=== PATIENT | female | born 1945 | race Two or more races ===

== ENCOUNTER → 2020-06-23 14:24 | Outpatient (BNVA) | payer MEDICARE, SELFPAY | PROVIDERS: PCP Internal Medicine; Visit Provider Hospitalist | DX: G47.33 Obstructive sleep apnea (adult) (pediatric) (principal); E03.9 Hypothyroidism, unspecified; J45.40 Moderate persistent asthma, uncomplicated; R91.1 Solitary pulmonary nodule; Z99.89 Dependence on other enabling machines and devices | CPT/HCPCS: 99212 ==

== ENCOUNTER 2021-01-04 09:50 | Outpatient (REF) | payer MEDICARE, SELFPAY ==
--- NOTE | ~2021-01-04 | CT_ITS ---
EXAMINATION: CT CHEST WITHOUT CONTRAST CLINICAL INFORMATION: Pulmonary nodule COMPARISON: Previous chest CT January 2020 and chest x-ray December 2019 TECHNIQUE: Multidetector volumetric CT imaging of the chest was done. Axial MIP volume rendering provided. Sagittal and coronal reformatted images were obtained. This CT examination was performed using dose optimization techniques as appropriate, variously including the following: *Automated exposure control *Adjustment of mA and/or kV according to patient size (this includes techniques or standardized protocols for targeted exams where dose is matched to indication/reason for exam; i.e. 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 Largest pulmonary nodule measures 4 mm in the left lower lobe axial image 328 series 5. No new pulmonary nodule is seen. There is minimal scarring or subsegmental atelectasis at the lung bases in the right middle lobe and lingula. MEDIASTINUM: There is mild coronary artery calcification. There are small mediastinal lymph nodes that are stable. The mediastinum is otherwise normal. PLEURA: There is no pleural effusion. No pleural mass or thickening. AXILLA: There are small bilateral axillary lymph nodes. No enlarged lymph nodes or chest wall mass is seen. UPPER ABDOMEN: Unremarkable. OSSEOUS STRUCTURES: There are degenerative changes of the spine. CT/CT chest wo con IMPRESSION: Stable small pulmonary nodules from January 2020. Mild coronary artery calcification.
== END 2021-01-04 09:51 | disposition home or self-care (01) ==
LOC: HO.CT 09:50
PROVIDERS: Visit Provider Hospitalist
DX: R91.1 Solitary pulmonary nodule (principal)
CPT/HCPCS: 71250

== ENCOUNTER → 2021-01-22 10:54 | Outpatient (BNVA) | payer MEDICARE, SELFPAY | PROVIDERS: PCP Internal Medicine; Visit Provider Hospitalist | DX: R91.1 Solitary pulmonary nodule (principal); J45.40 Moderate persistent asthma, uncomplicated; G47.33 Obstructive sleep apnea (adult) (pediatric) | CPT/HCPCS: 99212 ==

== ENCOUNTER 2021-12-18 08:49 | Outpatient (REF) | payer MEDICARE, SELFPAY ==
--- NOTE | ~2021-12-18 | CT_ITS ---
EXAMINATION: CT CHEST WITHOUT CONTRAST CLINICAL INFORMATION: Solitary pulmonary nodule. COMPARISON: None TECHNIQUE: Multidetector volumetric CT imaging of the chest was done. Axial MIP volume rendering provided. Sagittal and coronal reformatted images were obtained. This CT examination was performed using dose optimization techniques as appropriate, variously including the following: *Automated exposure control *Adjustment of mA and/or kV according to patient size (this includes techniques or standardized protocols for targeted exams where dose is matched to indication/reason for exam; i.e. extremities or head) *Use of iterative reconstruction technique DLP: 161 mGy-cm FINDINGS: ANHYDROUS AMMONIA PRODUCTION SUPERVISOR: Well-expanded lungs. LUNGS: The lungs are well expanded and clear of acute pneumonic process. There is a 1 mm punctate calcified granuloma right upper lobe axial image 132/6, 2 mm nodule left lower lobe superior segment 189/6, 2 mm calcified nodule left lower lobe axial image 281/6, patchy ground-glass density right middle lobe 1.0 cm axial image 27/5, 3 mm nodule left lower lobe axial image 330/6. MEDIASTINUM: The thyroid lobes are symmetrical and normal. The central trachea and the bronchi are widely patent. The heart size and the great vessels are normal. There are small shotty lymph nodes in the mediastinum. No pericardial effusion seen. Trace coronary artery calcifications are visualized. PLEURA: There is no pleural effusion. No pleural mass or thickening. AXILLA: There is a 9 mm left axillary lymph node image 17/3. UPPER ABDOMEN: Visualized liver, spleen, pancreas and bilateral adrenal glands unremarkable. OSSEOUS STRUCTURES: No lytic or sclerotic process seen. There is mild spondylosis dorsal spine. CT/CT chest wo con IMPRESSION: Stable bilateral pulmonary nodules compared to 01/04/2021. Patchy ground-glass attenuation right middle lobe is new. Recommend continued yearly followup. Fleischner guidelines were followed.
== END 2021-12-18 08:50 | disposition home or self-care (01) ==
LOC: HO.CT 08:49
PROVIDERS: PCP Internal Medicine; Visit Provider Hospitalist
DX: R91.1 Solitary pulmonary nodule (principal)
CPT/HCPCS: 71250

== ENCOUNTER → 2022-01-03 13:59 | Outpatient (BNVA) | payer MEDICARE, SELFPAY | PROVIDERS: PCP Internal Medicine; Visit Provider Hospitalist | DX: J45.40 Moderate persistent asthma, uncomplicated (principal); G47.33 Obstructive sleep apnea (adult) (pediatric); R91.1 Solitary pulmonary nodule | CPT/HCPCS: 99212 ==

== ENCOUNTER 2022-07-26 08:30 | Outpatient (REF) | payer MEDICARE, SELFPAY ==
--- NOTE | ~2022-07-26 | CT_ITS ---
EXAMINATION: CT CHEST WITHOUT CONTRAST CLINICAL INFORMATION: Follow-up pulmonary nodules. COMPARISON: CT chest 12/18/2021 TECHNIQUE: Multidetector volumetric CT imaging of the chest was done. Axial MIP volume rendering provided. Sagittal and coronal reformatted images were obtained. This CT examination was performed using dose optimization techniques as appropriate, variously including the following: *Automated exposure control *Adjustment of mA and/or kV according to patient size (this includes techniques or standardized protocols for targeted exams where dose is matched to indication/reason for exam; i.e. 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 LUNGS: The lungs are well-expanded and clear of acute pneumonic process. There is a 4 mm solitary nodule left lower lobe adjacent to the major fissure, axial image 287/7; 2 mm nodule right lower lobe adjacent to the major fissure, axial image 358/7; an ill-defined new nodule in the lingula measuring 4 mm on axial image 395/7. A punctate calcified granuloma right upper lobe and a 2 mm calcified nodule left lower lobe are stable. MEDIASTINUM: Heart size and the great vessels are normal caliber. There is no pericardial effusion. Mild coronary artery calcification is seen. There are small shotty precarinal lymph nodes with a short axis measurement of 6 mm. The thyroid lobes are symmetrical and normal. The airway is widely patent. CORONARY ARTERY CALCIFICATION: Trace coronary artery calcification is present. PLEURA: There is no pleural effusion. No pleural mass or thickening. AXILLA: Small shotty lymph nodes are seen in the left axilla. UPPER ABDOMEN: Visualized liver, spleen, pancreas and bilateral adrenal glands are unremarkable. OSSEOUS STRUCTURES: No aggressive lytic or sclerotic process seen. There is mild ventral and dorsal spondylosis. CT/CT chest wo IV con IMPRESSION: 1. Stable bilateral pulmonary nodules. There is a new ill-defined nodule in the lingula measuring 4 mm. 2. No abnormal mediastinal or axillary lymph nodes seen. Fleischner guidelines were followed.
== END 2022-07-26 08:31 | disposition home or self-care (01) ==
LOC: HO.CT 08:30
PROVIDERS: Visit Provider Hospitalist
DX: R91.1 Solitary pulmonary nodule (principal)
CPT/HCPCS: 71250

== ENCOUNTER → 2022-08-30 11:00 | Outpatient (BNVA) | payer MEDICARE, SELFPAY | PROVIDERS: PCP Internal Medicine; Visit Provider Hospitalist | DX: J44.9 Chronic obstructive pulmonary disease, unspecified (principal); R06.02 Shortness of breath | CPT/HCPCS: Q3014 ==

== ENCOUNTER 2023-04-29 11:10 | Outpatient (AMB) | payer MEDICARE, SELFPAY ==
[2023-04-29 11:24] VITALS: PULSE 89; O2SAT 98; BMI 31.1
--- NOTE | 2023-04-29 11:24 | MHC.OFFVIS ---
Intake Vital Signs 04/29/23 11:24 Height 5 ft 2 in Weight 170 lb BMI 31.1 Pulse 89 Pulse Source Pulse Oximeter Pulse Oximetry (%) 98 Oxygen Delivery Method Room Air Intake Visit Reasons: Asthma Philosophy Faculty Member Required: No Allergies hydrochlorothiazide Allergy (Severe, Verified 04/29/23 11:26) High Sensitivity Vasculitis penicillin V Allergy (Severe, Verified 04/29/23 11:26) Hives sulfur Allergy (Severe, Verified 04/29/23 11:26) High Sensitivity Vasculitis Lisinopril Allergy (Severe, Uncoded 04/29/23 11:26) High Sensitivity Vasculitis HPI HPI Comments History of Present Illness Details The patient is a 78-year-old woman with a history of hypothyroidism who apparently was evaluated for cough. She was found to have wheezing on examination per report and she was diagnosed with with asthma. She was started on Ventolin inhaler. She used it once and did complaint of some left-sided discomfort on her chest. Subsequently at her discomfort persisted so she decided to use it again in December discomfort worse. Denied palpitations or fluttering sensations. She denies any radiation down the arm. She was evaluated at the [place] [facility] because of the chest discomfort. There she had an x-ray demonstrating some evidence of bronchitis. Who otherwise no blood work was done. On further questioning she does states that she does have a are chronic cough. Usually nonproductive in nature. Tends to be intermittent not related to eating. Usually waxes and wanes. Denies any shortness of breath. She has never had allergy testing. She does states that she has a sister that has pulmonary fibrosis. She is a half sister which is concern that she could be developing a similar entity. She did have pulmonary function studies which we personally reviewed demonstrating a moderate restrictive ventilatory defect. She is concerned because her sister also has a history of pulmonary fibrosis. We did review her blood work including a positive CATINA with a elevated titer of 320:1. Therefore, additional blood tests warranted. Will also plan to repeat a chest x-ray. If there is no clear explanation for the restrictive lung disease then need to consider performing a CT scan of the chest to assess if there is any interstitial lung process. 02/15/2020 the patient is here for pulmonary follow-up visit. Overall she is doing okay. She has had some dyspnea on exertion. Rlbd-vd-tkltkwst severity. Worse when she is going up a flight of stairs. She was concerned about pulmonary fibrosis specially with restrictive lung disease. Therefore we had ago for CT scan of the chest. No evidence of any interstitial lung disease noted. She does have small pulmonary nodules measuring 2-4 mm in size. She should have another repeat CT scan in a year's time. It is reassuring that she does not have any evidence of any interstitial lung disease she is very happy about that. In the meantime will try some respiratory therapy since she is having some wheezing on examination. 06/23/2020 the patient has a telephone visit. Overall the patient has been complaining of persistent daytime drowsiness. She also develops headaches in the morning. She did undergo sleep study demonstrating mild sleep apnea. The patient also has evidence of hypoxia. Based on her cardiovascular risk and her ongoing daytime drowsiness symptoms the patient will benefit from starting CPAP therapy. Again a pulmonary nodules were discussed. They are small, but, will need a follow-up CT scan a year from the last 1. Her respiratory symptoms are overall better. 01/22/2021 the patient is here for pulmonary follow-up visit. Since we last spoke the patient did try CPAP. However, she could not get used to the mask or to therapy. Therefore she returned it. We did again review her sleep study and it appears that she does well when she sleeps on her side. Therefore she will try positional therapy for now. She will closely monitor her [place] score. She still complaining of dyspnea on exertion. I did send a prescription for Advair to the pharmacy to treat bronchospasms and hopefully improve her respiratory status. But, the patient had a high deductible and therefore she did not fill it. The patient was provided with a coupon for Anoro and she is going to try the Anoro and will fill it if it helps. We also did review her CT scan of the chest demonstrating stable pulmonary nodules bilaterally. The patient will need another CT scan in a year's time. In the meantime she does complaint of back pain. 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 She will follow-up with her primary care doctor regarding that. She is also concerned about the mild coronary artery calcifications suggesting some degree of cholesterol buildup. Nothing to do at this time although the patient should consider dietary indiscretions and lifestyle changes. Again, she should follow up with her primary care doctor regarding any cardiovascular risk factors. 01/03/2022 the patient is here for a pulmonary follow-up visit. Overall the patient has been doing relatively well. Has not been complaining of any asthma symptoms. She has not had to use her rescue inhaler. He has not used the Anoro, only a few times. However, she does have a postnasal drip. Usually is thin but she needs to carry him pressure because of some mention drippage. She denies any history of glaucoma. Therefore will start on ipratropium nasal spray. She continues to sleep well. She is avoiding sleeping supine. Has not had any issues with significant daytime drowsiness. the patient did undergo a repeat CT scan of the chest to monitor the pulmonary nodules. It appears that she has a new 5 mm ground-glass nodular density in the right hemithorax. We have reviewed the CT scan and 8 months with a follow-up at that time. 08/30/2022 the patient is here for a pulmonary Telehealth visit. The patient started developing a cough and chest congestion recently. Therefore she opted in a telehealth visit. She did have a cough which was productive in nature. Hrgo-ix-igpyqtmi severity. It appears that slowly improving. She did test negative for COVID-19. Denies any fevers or chills. Therefore, will hold off on any antibiotics at this time. She does have her inhalers which she is using. If the patient is no better she can come is call and I can send her some prednisone. The patient did have a recent CT scan of the chest in July 2022. We personally reviewed together. It appears that she has a new 4 mm ill-defined pulmonary nodule in the lingula area. She is concerned because is a new finding. I tried to reassure that is very small nodule. The patient will need close follow-up based on the appearance of the nodule. She does continue to use respiratory therapy as prescribed. The patient will call if she is no better and have a CXR. 04/29/2023 the patient is here for a pulmonary follow-up visit. She still complaining of some chest tightness and fatigue. Unfortunately back in January she did have a CT of the coronary arteries demonstrating couple blockages on the distal LAD and also proximal right coronary artery. It was stated to be about 70% obstruction. She has been very concerned about the findings. Although, she has not yet to have a diagnostic catheterization. She may need a percutaneous intervention. In the meantime the patient has been taking a baby aspirin. Explained to her that will go ahead and try to facilitate her catheterization to further address the ongoing symptoms and potential cardiac etiologies. If she continues to be symptomatic after her cardiac interventions then we will further address any ongoing symptoms done. The patient also had a CT scan of the chest back in July 2022 demonstrating pulmonary nodules that do need follow-up. She had a new 4 mm pulmonary nodule. The CT scan of the coronary arteries is not able to visualize the full lung tissue. Therefore will have her return sometime in early next year with a repeat CT scan to further follow up the pulmonary nodules. The patient will continue with current respiratory therapy. Any new issues arise the patient will call for an earlier assessment. [facility] Medical History (Updated 04/29/23 @ 22:26 by Evelio Martinez MD) CAD (coronary artery disease) MARY (obstructive sleep apnea) Pulmonary nodule Asthma MARY on CPAP Social History (Updated 01/22/21 @ 11:05 by Sonam Arroyo Gutierrez) Patient Tobacco Use Status: Never used Tobacco Review of Systems Const Denies daytime sleepiness, Reports fatigue, Denies night sweats, Reports snoring and Denies stops breathing during sleep ENT Denies change in voice, Denies lip swelling, Denies mouth pain, Reports nasal congestion, Reports nasal discharge and Denies neck pain Card Reports chest pain and Reports dyspnea on exertion Resp Reports cough, Reports dyspnea on exertion, Reports snoring and Reports wheezing GI Denies abdominal pain Musc Denies no additional complaints, Reports back pain and Denies neck pain Neuro Denies Neuro-related abnormal movements Psych Denies no additional complaints Endo Reports fatigue Antonio/Lymph Denies easy bleeding and Denies lymphadenopathy Aller/Immun Denies lip swelling and Reports wheezing Physical Exam Vital Signs: Last Vital Signs Pulse 89 04/29/23 11:24 Pulse Ox 98 04/29/23 11:24 Oxygen Delivery Method Room Air 04/29/23 11:24 BMI result Body Mass Index 31.1 Const General: alert Neck Neck: Yes normal visual inspection, Yes full ROM and Yes no lymphadenopathy Chest Chest palpation & inspection: normal inspection of the chest Resp Auscultation: diminished lung sounds Cardio Rate: regular rate Rhythm: regular rhythm Heart sounds: S1 normal heart sound present and S2 normal heart sound present GI Palpation (GI): Soft to palpation and nontender Auscultation: normal bowel sounds Skin General skin exam: rashes and/or lesions noted Assessment & Plan Assessment & Plan (1) Pulmonary nodule: Code(s): R91.1 - Solitary pulmonary nodule (2) Asthma: Code(s): J45.909 - Unspecified asthma, uncomplicated Qualifiers: Asthma severity: moderate Asthma persistence: persistent Asthma complication type: uncomplicated Qualified Code(s): J45.40 - Moderate persistent asthma, uncomplicated (3) MARY (obstructive sleep apnea): Comment: Did not tolerate PAP therapy Code(s): G47.33 - Obstructive sleep apnea (adult) (pediatric) (4) CAD (coronary artery disease): Comment: with abnromal CT coronary with 70% distal LAD and 70% proximal RCA Code(s): I25.10 - Atherosclerotic heart disease of [place] coronary artery without angina pectoris Plan Needs urgent diagnostic cardiac cath based on her ongoing symptoms and abnormal scan. YULI as needed positional therapy for MARY, should not sleep supine Repeat CT chest 3-4 months Ipratropium nasal spray F/U 4 [facility] Coding Level of Care Code Est Pt Level 4 (14596) Diagnoses Pulmonary nodule R91.1 Moderate persistent asthma without complication J45.40 Asthma severity: moderate Asthma persistence: persistent Asthma complication type: uncomplicated MARY (obstructive sleep apnea) G47.33 CAD (coronary artery disease) I25.10 Time Spent (min) 20
== END 2023-04-29 12:07 | disposition home or self-care (01) ==
PROVIDERS: PCP Internal Medicine; Visit Provider Hospitalist
DX: R91.1 Solitary pulmonary nodule (principal); J45.40 Moderate persistent asthma, uncomplicated; G47.33 Obstructive sleep apnea (adult) (pediatric); I25.10 Atherosclerotic heart disease of native coronary artery without angina pectoris
CPT/HCPCS: 99214

== ENCOUNTER → 2023-04-29 11:10 | Outpatient (BNVA) | payer MEDICARE, SELFPAY | PROVIDERS: PCP Internal Medicine; Visit Provider Hospitalist | DX: J45.40 Moderate persistent asthma, uncomplicated (principal); R91.1 Solitary pulmonary nodule; G47.33 Obstructive sleep apnea (adult) (pediatric); I25.10 Atherosclerotic heart disease of native coronary artery without angina pectoris | CPT/HCPCS: 99212 ==

== ENCOUNTER 2023-06-18 10:19 | Outpatient (REF) | payer MEDICARE, SELFPAY ==
--- NOTE | ~2023-06-18 | CT_ITS ---
EXAMINATION: CT CHEST WITHOUT CONTRAST CLINICAL INFORMATION: Solitary pulmonary nodule COMPARISON: Previous CTs, most recent, 07/26/2022 TECHNIQUE: Multidetector volumetric CT imaging of the chest was done. Axial MIP volume rendering provided. Sagittal and coronal reformatted images were obtained. This CT examination was performed using dose optimization techniques as appropriate, variously including the following: *Automated exposure control *Adjustment of mA and/or kV according to patient size (this includes techniques or standardized protocols for targeted exams where dose is matched to indication/reason for exam; i.e. extremities or head) *Use of iterative reconstruction technique DLP: 152 mGy-cm FINDINGS: ANNEALER: Unremarkable. LUNGS: Trachea and bronchi are patent. Mild centrilobular emphysema. Scattered atelectasis. Unchanged tiny upper and right left lower lobe granulomas. NODULES: RLL: Stable 2 mm, 6:257. No change 6 mm subpleural, 6:350. Lingula: 4 mm, 6:284 without change. LLL: Stable 4 mm adjacent to the major fissure, 6:100. No change 5 mm, 6:321. Scattered micronodules. MEDIASTINUM: No thyroid pathology. Nonspecific lymph nodes without pathologic lymphadenopathy. Nonenlarged heart. No pericardial effusion. Nonaneurysmal aorta with atherosclerotic calcifications. Nonenlarged pulmonary arteries. CORONARY ARTERY CALCIFICATION: Moderate PLEURA: No effusions, masses, thickening or pneumothoraces. AXILLA: Unchanged nonspecific lymph nodes. No pathologic lymphadenopathy. UPPER ABDOMEN: No upper abdominal pathology. OSSEOUS STRUCTURES: No suspicious osseous lesions. CT/CT chest wo IV con IMPRESSION: Stable lung nodules, largest measuring 5 mm. Per Fleischner guidelines, no routine follow-up.
== END 2023-06-18 10:20 | disposition home or self-care (01) ==
LOC: HO.CT 10:19
PROVIDERS: PCP Internal Medicine; Visit Provider Hospitalist
DX: R91.1 Solitary pulmonary nodule (principal)
CPT/HCPCS: 71250

== ENCOUNTER 2023-10-02 14:19 | Outpatient (AMB) | payer MEDICARE, SELFPAY ==
[2023-10-02 14:20] VITALS: BP 148/78; PULSE 86; O2SAT 97; BMI 32.9
--- NOTE | 2023-10-02 14:20 | A.OFFVIS_ITS ---
Intake Vital Signs 10/02/23 14:20 Height 5 ft 2 in Weight 180 lb BMI 32.9 BP 148/78 H Blood Pressure Location Lt brachial Position Sitting Pulse 86 Pulse Source Doppler Pulse Oximetry (%) 97 Oxygen Delivery Method Room Air Intake Visit Reasons: Asthma Intake Note: Patient is here for a follow up on asthma, patient c/o SOB, fatigue, had recent blood work Allergies hydrochlorothiazide Allergy (Severe, Verified 10/02/23 14:25) High Sensitivity Vasculitis penicillin V Allergy (Severe, Verified 10/02/23 14:25) Hives sulfur Allergy (Severe, Verified 10/02/23 14:25) High Sensitivity Vasculitis Lisinopril Allergy (Severe, Uncoded 04/29/23 11:26) High Sensitivity Vasculitis HPI HPI Comments History of Present Illness Details The patient is a 78-year-old woman with a history of hypothyroidism who apparently was evaluated for cough. She was found to have wheezing on examination per report and she was diagnosed with with asthma. She was started on Ventolin inhaler. She used it once and did complaint of some left-sided discomfort on her chest. Subsequently at her discomfort persisted so she decided to use it again in December discomfort worse. Denied palpitations or fluttering sensations. She denies any radiation down the arm. She was evaluated at the [facility] because of the chest discomfort. There she had an x-ray demonstrating some evidence of bronchitis. Who otherwise no blood work was done. On further questioning she does states that she does have a are chronic cough. Usually nonproductive in nature. Tends to be intermittent not related to eating. Usually waxes and wanes. Denies any shortness of breath. She has never had allergy testing. She does states that she has a sister that has pulmonary fibrosis. She is a half sister which is concern that she could be developing a similar entity. She did have pulmonary function studies which we personally reviewed demonstrating a moderate restrictive ventilatory defect. She is concerned because her sister also has a history of pulmonary fibrosis. We did review her blood work including a positive CATINA with a elevated titer of 320:1. Therefore, additional blood tests warranted. Will also plan to repeat a chest x-ray. If there is no clear explanation for the restrictive lung disease then need to consider performing a CT scan of the chest to assess if there is any interstitial lung process. 02/15/2020 the patient is here for pulmonary follow-up visit. Overall she is doing okay. She has had some dyspnea on exertion. [id number] severity. Worse when she is going up a flight of stairs. She was concerned about pulmonary fibrosis specially with restrictive lung disease. Therefore we had ago for CT scan of the chest. No evidence of any interstitial lung disease noted. She does have small pulmonary nodules measuring 2-4 mm in size. She should have another repeat CT scan in a year's time. It is reassuring that she does not have any evidence of any interstitial lung disease she is very happy about that. In the meantime will try some respiratory therapy since she is having some wheezing on examination. 06/23/2020 the patient has a telephone visit. Overall the patient has been complaining of persistent daytime drowsiness. She also develops headaches in the morning. She did undergo sleep study demonstrating mild sleep apnea. The patient also has evidence of hypoxia. Based on her cardiovascular risk and her ongoing daytime drowsiness symptoms the patient will benefit from starting CPAP therapy. Again a pulmonary nodules were discussed. They are small, but, will need a follow-up CT scan a year from the last 1. Her respiratory symptoms are overall better. 01/22/2021 the patient is here for pulmonary follow-up visit. Since we last spoke the patient did try CPAP. However, she could not get used to the mask or to therapy. Therefore she returned it. We did again review her sleep study and it appears that she does well when she sleeps on her side. Therefore she will try positional therapy for now. She will closely monitor her [place] score. She still complaining of dyspnea on exertion. I did send a prescription for Advair to the pharmacy to treat bronchospasms and hopefully improve her respiratory status. But, the patient had a high deductible and therefore she did not fill it. The patient was provided with a coupon for Anoro and she is going to try the Anoro and will fill it if it helps. We also did review her CT scan of the chest demonstrating stable pulmonary nodules bilaterally. The patient will need another CT scan in a year's time. In the meantime she does complaint of back pain. 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 She will follow-up with her primary care doctor regarding that. She is also concerned about the mild coronary artery calcifications suggesting some degree of cholesterol buildup. Nothing to do at this time although the patient should consider dietary indiscretions and lifestyle changes. Again, she should follow up with her primary care doctor regarding any cardiovascular risk factors. 01/03/2022 the patient is here for a pulmonary follow-up visit. Overall the patient has been doing relatively well. Has not been complaining of any asthma symptoms. She has not had to use her rescue inhaler. He has not used the Anoro, only a few times. However, she does have a postnasal drip. Usually is thin but she needs to carry him pressure because of some mention drippage. She denies any history of glaucoma. Therefore will start on ipratropium nasal spray. She continues to sleep well. She is avoiding sleeping supine. Has not had any issues with significant daytime drowsiness. the patient did undergo a repeat CT scan of the chest to monitor the pulmonary nodules. It appears that she has a new 5 mm ground-glass nodular density in the right hemithorax. We have reviewed the CT scan and 8 months with a follow-up at that time. 08/30/2022 the patient is here for a pulmonary Telehealth visit. The patient started developing a cough and chest congestion recently. Therefore she opted in a telehealth visit. She did have a cough which was productive in nature. Rrmp-vn-oqvgbpis severity. It appears that slowly improving. She did test negative for COVID-19. Denies any fevers or chills. Therefore, will hold off on any antibiotics at this time. She does have her inhalers which she is using. If the patient is no better she can come is call and I can send her some prednisone. The patient did have a recent CT scan of the chest in July 2022. We personally reviewed together. It appears that she has a new 4 mm ill- defined pulmonary nodule in the lingula area. She is concerned because is a new finding. I tried to reassure that is very small nodule. The patient will need close follow-up based on the appearance of the nodule. She does continue to use respiratory therapy as prescribed. The patient will call if she is no better and have a CXR. 04/29/2023 the patient is here for a pulmonary follow-up visit. She still complaining of some chest tightness and fatigue. Unfortunately back in January she did have a CT of the coronary arteries demonstrating couple blockages on the distal LAD and also proximal right coronary artery. It was stated to be about 70% obstruction. She has been very concerned about the findings. Although, she has not yet to have a diagnostic catheterization. She may need a percutaneous intervention. In the meantime the patient has been taking a baby aspirin. Explained to her that will go ahead and try to facilitate her catheterization to further address the ongoing symptoms and potential cardiac etiologies. If she continues to be symptomatic after her cardiac interventions then we will further address any ongoing symptoms done. The patient also had a CT scan of the chest back in July 2022 demonstrating pulmonary nodules that do need follow-up. She had a new 4 mm pulmonary nodule. The CT scan of the coronary arteries is not able to visualize the full lung tissue. Therefore will have her return sometime in early next year with a repeat CT scan to further follow up the pulmonary nodules. The patient will continue with current respiratory therapy. Any new issues arise the patient will call for an earlier assessment. 10/02/2023 the patient is here for a pulmonary follow-up visit. The patient still complaining of dyspnea on exertion chest tightness. Mainly with activity. She has been upset with Cardiology because she has not had her cardiac catheterization as of yet. She had the abnormal CT coronary scan and was supposed to follow-up with cardiology but there has been some delay in her care. She is concerned because she is still feeling shortness of breath with activity and chest tightness. Therefore I will make a referral here to [facility]. In the meantime, the patient did have a CT scan of the chest back in May 2023 demonstrating stable pulmonary nodules. There were between 3-5 mm in size. Will follow-up in a year's time which would be closer to the fall and at that point be able to follow-up with a CT scan 1 more time. If the nodules are stable I explained to the patient that these nodules are likely benign and do not need any additional follow-up. The patient also has a rescue inhaler that she has not required. Will follow-up in the fall after his CT scan of the chest. [facility] Medical History (Updated 10/02/23 @ 14:35 by Evelio Martinez MD) CAD (coronary artery disease) MARY (obstructive sleep apnea) Pulmonary nodule Asthma MARY on CPAP Social History Patient Tobacco Use Status: Never used Tobacco Review of Systems Const Denies daytime sleepiness, Reports fatigue, Denies night sweats, Reports snoring and Denies stops breathing during sleep ENT Denies change in voice, Denies lip swelling, Denies mouth pain, Reports nasal congestion, Reports nasal discharge and Denies neck pain Card Reports chest pain and Reports dyspnea on exertion Resp Reports cough, Reports dyspnea on exertion, Reports snoring and Denies wheezing GI Denies abdominal pain Musc Denies no additional complaints, Reports back pain and Denies neck pain Neuro Denies Neuro-related abnormal movements Psych Denies no additional complaints Endo Reports fatigue Antonio/Lymph Denies easy bleeding and Denies lymphadenopathy Aller/Immun Denies lip swelling and Denies wheezing Physical Exam Vital Signs: Last Vital Signs Pulse 86 10/02/23 14:20 BP 148/78 H 10/02/23 14:20 Pulse Ox 97 10/02/23 14:20 Oxygen Delivery Method Room Air 10/02/23 14:20 BMI result Body Mass Index 32.9 Const General: alert Neck Neck: Yes normal visual inspection, Yes full ROM and Yes no lymphadenopathy Chest Chest palpation & inspection: normal inspection of the chest Resp Auscultation: diminished lung sounds Cardio Rate: regular rate Rhythm: regular rhythm Heart sounds: S1 normal heart sound present and S2 normal heart sound present GI Palpation (GI): Soft to palpation and nontender Auscultation: normal bowel sounds Skin General skin exam: rashes and/or lesions noted Assessment & Plan Assessment & Plan (1) Pulmonary nodule: Code(s): R91.1 - Solitary pulmonary nodule (2) Asthma: Code(s): J45.909 - Unspecified asthma, uncomplicated Qualifiers: Asthma complication type: uncomplicated Asthma persistence: persistent Asthma severity: moderate Qualified Code(s): J45.40 - Moderate persistent asthma, uncomplicated (3) MARY (obstructive sleep apnea): Comment: Did not tolerate PAP therapy Code(s): G47.33 - Obstructive sleep apnea (adult) (pediatric) (4) CAD (coronary artery disease): Comment: with abnromal CT coronary with 70% distal LAD and 70% proximal RCA Code(s): I25.10 - Atherosclerotic heart disease of [place] coronary artery without angina pectoris Qualifiers: Associated angina: with stable angina Coronary Disease-Associated Artery/Lesion type: unspecified vessel or lesion type [place] vs. transplanted heart: unspecified whether [place] or transplanted heart Qualified Code(s): I25.118 - Atherosclerotic heart disease of [place] coronary artery with other forms of angina pectoris Plan referral to cardiology at [facility] as needed positional therapy for MARY, should not sleep supine Repeat CT chest 05/2024 Ipratropium nasal spray F/U 05/2024 Orders: Orders CT chest wo IV con 05/25/24 R91.1 - Solitary pulmonary nodule Referrals Cardiology Referral I25.10 - Atherosclerotic heart disease of [place] coronary artery without angina pectoris Coding Level of Care Code Est Pt Level 4 (96012) Diagnoses Pulmonary nodule R91.1 Moderate persistent asthma without complication J45.40 Asthma complication type: uncomplicated Asthma persistence: persistent Asthma severity: moderate MARY (obstructive sleep apnea) G47.33 Coronary artery disease with stable angina pectoris, unspecified vessel or lesion type, unspecified whether [place] or transplanted heart I25.118 Associated angina: with stable angina Coronary Disease-Associated Artery/Lesion type: unspecified vessel or l esion type [place] vs. transplanted heart: unspecified whether [place] or transplanted heart Time Spent (min) 17
== END 2023-10-02 14:51 | disposition home or self-care (01) ==
PROVIDERS: PCP Internal Medicine; Visit Provider Hospitalist
DX: R91.1 Solitary pulmonary nodule (principal); J45.40 Moderate persistent asthma, uncomplicated; G47.33 Obstructive sleep apnea (adult) (pediatric); I25.118 Atherosclerotic heart disease of native coronary artery with other forms of angina pectoris
CPT/HCPCS: 99214

== ENCOUNTER → 2023-10-02 14:19 | Outpatient (BNVA) | payer MEDICARE, SELFPAY | PROVIDERS: PCP Internal Medicine; Visit Provider Hospitalist | DX: R91.1 Solitary pulmonary nodule (principal); J45.40 Moderate persistent asthma, uncomplicated; G47.33 Obstructive sleep apnea (adult) (pediatric); I25.118 Atherosclerotic heart disease of native coronary artery with other forms of angina pectoris | CPT/HCPCS: 99212 ==

== ENCOUNTER 2023-10-13 14:43 | Outpatient (REF) | payer MEDICARE, SELFPAY ==
[2023-10-13 16:20] LABS: MANUAL DIFF FLAG NO
[2023-10-13 17:22] LABS: Basophils Absolute Auto 0.1 X10*3/uL (0.0-0.2); Basophils Percent Auto 0.8 % (0-2); Eosinophils Absolute Auto 0.2 X10*3/uL (0.0-0.4); Hematocrit 40.7 % (37.0-47.0); Hemoglobin 13.6 g/dl (12.0-16.0); Imm Gran Abs Auto 0.04 X10*3/uL (0.00-0.03); Imm Gran Pct Auto 0.4 % (0.0-0.4); Lymphocytes Absolute Auto 2.7 X10*3/uL (1.2-4.9); Lymphocytes Percent Auto 28.8 % (20-40); Mean Corpuscular HGB Conc 33.4 g/dl (31.0-35.0); Mean Corpuscular Hemoglobin 28.2 pg (27.0-33.0); Mean Corpuscular Volume 84.4 fL (80.0-98.0); Mean Platelet Volume 11.2 fL (9.4-12.3); Monocytes Absolute Auto 0.7 X10*3/uL (0.1-1.2); Monocytes Percent Auto 6.9 % (2-11); Neutrophils Absolute Auto 5.8 x10*3/uL (2.0-8.3); Neutrophils Percent Auto 61.1 % (45-73); Platelet Count 296 X10*3/uL (160-400); Red Blood Count 4.82 X10*6/uL (4.20-5.50); Red Cell Distribution Width 13.4 % (11.0-16.0); White Blood Count 9.4 X10*3/uL (4.8-10.8)
[2023-10-13 17:29] LABS: Prothrombin Time 11.6 SEC (11.1-13.3)
[2023-10-13 17:39] LABS: Anion Gap 14 (12-20); Blood Urea Nitrogen 11 mg/dL (9-16); Calcium 9.4 mg/dL (8.4-10.2); Carbon Dioxide 24 mmol/L (22-29); Chloride 102 mmol/L (96-108); Estimated Glomerular Filt Rate > 60; Glucose Random 102 mg/dL (60-115); Potassium 3.4 mmol/L (3.3-5.1); Sodium 137 mmol/L (135-145)
== END 2023-10-13 14:44 | disposition home or self-care (01) ==
LOC: HO.LAB 14:43
PROVIDERS: Absent Provider Nurse Practitioner Family; PCP Internal Medicine; Visit Provider Internal Medicine Cardiovascular Disease
DX: I25.118 Atherosclerotic heart disease of native coronary artery with other forms of angina pectoris (principal); I10 Essential (primary) hypertension; J44.9 Chronic obstructive pulmonary disease, unspecified; Z79.899 Other long term (current) drug therapy
CPT/HCPCS: 36415; 80048; 85025; 85610; 93005; 99202

== ENCOUNTER 2023-10-13 14:43 | Outpatient (AMB) | payer MEDICARE, SELFPAY ==
[2023-10-13 15:04] VITALS: BP 150/80; PULSE 80; BMI 32.4
--- NOTE | 2023-10-13 15:04 | MHC.OFFVIS ---
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 Required: No Accompanied by: Self / Same As Patient Allergies hydrochlorothiazide Allergy (Severe, Verified 10/02/23 14:25) High Sensitivity Vasculitis penicillin V Allergy (Severe, Verified 10/02/23 14:25) Hives sulfur Allergy (Severe, Verified 10/02/23 14:25) High Sensitivity Vasculitis Lisinopril Allergy (Severe, Uncoded 04/29/23 11:26) High Sensitivity Vasculitis Medication List - Last Reconciled 10/13/23 by Yeyo Galindo MD albuterol sulfate 90 mcg/actuation 2 inhalations inhalation Q6H PRN 30 days aspirin (Adult Aspirin Regimen) 81 mg PO DAILY doxycycline monohydrate 50 mg PO DAILY duloxetine 30 mg PO DAILY ipratropium bromide 2 sprays intranasal TID PRN levothyroxine 137 mcg PO DAILY levothyroxine 137 mcg PO DAILY meclizine 12.5 mg PO TID PRN metoprolol tartrate 25 mg PO DAILY milk thistle seed extract 200 mg PO BID HPI HPI Comments History of Present Illness Details 78-year-old female who has a Jehovah Witness, has asthma, COPD, pulmonary nodules and hypertension who is presenting for abnormal coronary CTA. She follows up with Dr. Martinez for pulmonology. She has been experiencing dyspnea on exertion and chest pains off and on for long time. She has noticed that her dyspnea has worsening as well as she is getting some left-sided chest pains more frequently. She followed with Dr. Simmons but since his skilled nursing she has not seen any tomb maker helper at [facility]. She had a CT scan performed in January 2023 this showed 25% left main stenosis, 25% ostial LAD, 40% mid LAD and 70% mid to distal LAD stenosis. RCA had 50-70% stenosis at the ostium. CTA FFR was performed which was abnormal in the right coronary artery as well as distal LAD. She had an echocardiogram in 2021 which showed normal biventricular function with EF of 60 65% and no significant valvular pathology. Small pericardial effusion was noted. It appears she has not been able to get follow-up at [facility] and was referred to us for potential diagnostic angiography. The patient has been experiencing shortness of breath and gets out of breath very easily. She is saying that after minimal activity she has to rest. She also has been getting some left-sided chest pains. She has asthma and COPD and is on treatment for that. Her blood pressure is elevated. She is only on metoprolol which is a weak antihypertensive medication. Labs and imaging reviewed. [facility] Medical History (Updated 10/13/23 @ 15:44 by Yeyo Galindo MD) CAD (coronary artery disease) MARY (obstructive sleep apnea) Pulmonary nodule Asthma MARY on CPAP Social History Patient Tobacco Use Status: Never used Tobacco Review of Systems Const Denies chills, Denies fatigue, Denies fever(s), Denies frequent falls, Denies weakness, Denies weight gain and Denies weight loss ENT Denies dizziness Card Denies chest pain, Denies leg edema, Denies lightheadedness, Denies palpitations, Denies dyspnea and Denies dyspnea on exertion Resp Denies cough, Denies dyspnea and Denies dyspnea on exertion GI Denies hematochezia Musc Denies abnormal gait, Denies muscle weakness, Denies numbness, Denies radiating pain into limb and Denies tingling Neuro Denies abnormal gait, Denies dizziness, Denies frequent falls, Denies numbness, Denies tingling and Denies weakness Endo Denies fatigue and Denies palpitations Physical Exam Vital Signs: Last Vital Signs Pulse 80 10/13/23 15:04 BP 150/80 H 10/13/23 15:04 BMI result Body Mass Index 32.4 GENERAL APPEARANCE: in no acute distress, pleasant. NECK: no carotid bruit, no jugular venous distention. SKIN: no suspicious lesions, warm and dry. HEART: no murmurs, regular rate and rhythm. LUNGS: clear to auscultation bilaterally. ABDOMEN: soft, nontender. EXTREMITIES: no edema. PERIPHERAL PULSES: equal. NEUROLOGIC: No gross deficits, AAO X 3 Office Procedures EKG Details: Sinus rhythm 80 beats per minute, right bundle-branch block, left anterior fascicular block, left ventricular hypertrophy, QTC 498 milliseconds. [id number], Complete Assessment & Plan Assessment & Plan (1) Essential hypertension: Code(s): I10 - Essential (primary) hypertension (2) CAD (coronary artery disease): Comment: with abnromal CT coronary with 70% distal LAD and 70% proximal RCA Code(s): I25.10 - Atherosclerotic heart disease of [place] coronary artery without angina pectoris Qualifiers: Coronary Disease-Associated Artery/Lesion type: unspecified vessel or lesion type [place] vs. transplanted heart: unspecified whether [place] or transplanted heart Associated angina: with stable angina Qualified Code(s): I25.118 - Atherosclerotic heart disease of [place] coronary artery with other forms of angina pectoris Plan [age] year female who is here for 1st office visit. She has a bifascicular block on EKG with right bundle-branch block and left anterior fascicular block. No recent echocardiography in our system and last echo was in [facility] system from 2021 which showed normal biventricular function. She had coronary CTA in January 2023 which was abnormal with abnormal CT FFR in right coronary artery as well as distal LAD. She has dyspnea on exertion ongoing despite treatment by pulmonology. Her blood pressure is elevated. I am adding amlodipine 5 mg once a day to her regimen to improve blood pressure control. I think she needs a diagnostic angiogram to rule out obstructive coronary disease as potential cause for her symptoms. She does have abnormal CT FFR in the right coronary artery as well as the distal LAD. She has a Quaker and will not agree to any blood transfusions. She is currently taking baby aspirin which should be continued. I am also adding atorvastatin 40 mg once a day to her regimen given the fact that her LDL cholesterol is more than 110 and target is less than 70. Thank you for allowing me to participate in the care of your patient. Please feel free to contact me if you have any questions. Medications: New amlodipine 5 mg PO DAILY 60 tabs 3RF I10 - Essential (primary) hypertension atorvastatin 40 mg PO BEDTIME 60 tabs 3RF I25.118 - Atherosclerotic heart disease of [place] coronary artery with other forms of angina pectoris Coding Level of Care Code New Pt Level 5 (45427) Diagnoses Essential hypertension I10 Coronary artery disease with stable angina pectoris, unspecified vessel or lesion type, unspecified whether [place] or transplanted heart I25.118 Coronary Disease-Associated Artery/Lesion type: unspecified vessel or lesion type [place] vs. transplanted heart: unspecified whether [place] or transplanted heart Associated angina: with stable angina CPT Codes EKG - CPT: 67650-[id number], Complete ([id number])
== END 2023-10-13 15:48 | disposition home or self-care (01) ==
PROVIDERS: PCP Internal Medicine; Visit Provider Internal Medicine Cardiovascular Disease
DX: I25.118 Atherosclerotic heart disease of native coronary artery with other forms of angina pectoris (principal); I10 Essential (primary) hypertension; I45.2 Bifascicular block; R94.31 Abnormal electrocardiogram [ECG] [EKG]
CPT/HCPCS: 93010; 99205

== ENCOUNTER → 2023-11-04 23:59 | Outpatient (BNV) | payer MEDICARE, SELFPAY | PROVIDERS: PCP Internal Medicine; Visit Provider Internal Medicine Cardiovascular Disease | DX: I20.89 Other forms of angina pectoris (principal) | CPT/HCPCS: 92928; 92978; 93458; 99152 ==

== ENCOUNTER 2023-11-18 13:06 | Outpatient (AMB) | payer MEDICARE, SELFPAY ==
[2023-11-18 13:10] VITALS: BP 140/64; PULSE 96; BMI 31.9
--- NOTE | 2023-11-18 13:10 | MHC.OFFVIS ---
Intake Vital Signs 11/18/23 13:10 Height 5 ft 2 in Weight 174 lb 2.643 oz BMI 31.9 BP 140/64 H Blood Pressure Location Rt brachial Position Sitting Pulse 96 Pulse Source Pulse Oximeter Intake Visit Reasons: 2 wk s/p cath Allergies hydrochlorothiazide Allergy (Severe, Verified 11/18/23 13:16) High Sensitivity Vasculitis penicillin V Allergy (Severe, Verified 11/18/23 13:16) Hives sulfur Allergy (Severe, Verified 11/18/23 13:16) High Sensitivity Vasculitis Lisinopril Allergy (Severe, Uncoded 11/18/23 13:16) High Sensitivity Vasculitis Medication List - Last Reconciled 11/18/23 by Yuni Feldman, COMPLIANCE QUALITY PERFORMANCE ANALYST-C albuterol sulfate 90 mcg/actuation 2 inhalations inhalation Q6H PRN 30 days aspirin (Adult Aspirin Regimen) 81 mg PO DAILY doxycycline monohydrate 50 mg PO DAILY levothyroxine 137 mcg PO DAILY meclizine 12.5 mg PO TID PRN ticagrelor (Brilinta) 90 mg PO BID HPI 2 wk s/p cath HPI Details Kassi is a 78-year-old female with past medical history of hypertension, , hyperlipidemia, obstructive sleep apnea, asthma, shortness of breath with exertion who recently had a abnormal CTA of the coronary arteries leading to cardiac catheterization on 11/04/2023 with KERRY placed to the proximal RCA. Today she reports she has been doing well since her stent placement. She continues to have shortness of breath with activity. No chest discomfort at rest or with activity. No heart palpitations, lightheadedness, presyncope, syncope, PND, orthopnea. She does get fullness in her lower legs. No bleeding issues reported. Taking meds as directed. In the past she was on metoprolol but was unclear as to why it was stopped. Friend is present. [facility] Medical History (Updated 11/18/23 @ 16:08 by Yuni Feldman, ALBERT-C) CAD (coronary artery disease) MARY (obstructive sleep apnea) Pulmonary nodule Asthma MARY on CPAP Surgical History (Updated 11/18/23 @ 16:09 by Yuni Feldman, ALBERT-C) History of cardiac cath Family History Father Pacemaker Social History Patient Tobacco Use Status: Never used Tobacco Review of Systems Const All systems reviewed & are unremarkable except as noted in HPI and below ENT Denies dizziness Card Denies chest pain, Denies chest pain at rest, Denies chest pain with activity, Denies rapid heart rate, Denies pedal edema, Denies edema, Denies leg edema, Denies lightheadedness, Denies palpitations, Reports dyspnea, Reports dyspnea on exertion and Denies orthopnea Resp Denies cough, Reports dyspnea and Reports dyspnea on exertion GI Denies hematochezia and Denies change in stool character Musc Details: Right groin catheterization site feeling good Denies abnormal gait, Denies limited range of motion, Denies muscle cramps, Denies muscle weakness, Denies numbness, Denies radiating pain into limb, Denies stiffness and Denies tingling Neuro Denies abnormal gait, Denies dizziness, Denies numbness and Denies tingling Endo Denies palpitations Physical Exam Vital Signs: Last Vital Signs Pulse 96 11/18/23 13:10 BP 140/64 H 11/18/23 13:10 BMI result Body Mass Index 31.9 Const General: cooperative, healthy appearing, comfortable and no acute distress Orientation/consciousness: patient oriented x3 Neck Neck: Yes normal visual inspection Resp Effort & Inspection: normal respiratory effort Auscultation: clear to auscultation bilaterally, no crackles, no rales, no rhonchi and no wheezes Cardio Jugular venous distension: no JVD Rate: regular rate Rhythm: regular rhythm Heart sounds: S1 normal heart sound present, S2 normal heart sound present, no murmurs and no rubs Neuro General: patient oriented x3 Extrem Other: Right femoral pulse easily palpable, no bruit noted, nontender to palpation General: Yes normal to inspection and No no pedal edema Psych Appearance: grossly normal Mental Status: mental status grossly normal Speech and movement: Normal speech and movement present Assessment & Plan Assessment & Plan (1) CAD (coronary artery disease): Comment: with abnromal CT coronary with 70% distal LAD and 70% proximal RCA Code(s): I25.10 - Atherosclerotic heart disease of [place] coronary artery without angina pectoris Qualifiers: Associated angina: with stable angina Coronary Disease-Associated Artery/Lesion type: unspecified vessel or lesion type [place] vs. transplanted heart: unspecified whether [place] or transplanted heart Qualified Code(s): I25.118 - Atherosclerotic heart disease of [place] coronary artery with other forms of angina pectoris Plan: Symptom of shortness of breath with activity. Also known history of asthma which can contribute. She did have a CTA of the coronary arteries done January 2023 which showed significant LAD and RCA stenosis. She underwent a cardiac catheterization on 11/03/2022 showing mid LAD 70-75% stenosis, RCA proximal ostial 90% stenosis, KERRY was placed. Right radial was attempted and right femoral site was actually used. Both sites healing well without noted complications. She tells me she continues to have shortness of breath with activity. Cardiac catheterization details and findings reviewed with her. Continue aspirin indefinitely. Continue Brilinta uninterrupted for at least 1 year. Continue atorvastatin with ideal LDL goal less than 70. Will plan for a fasting lipid and LFT prior to her next visit. Blood pressure and pulse rate are mildly elevated today. Will have her start on metoprolol XL 25 mg daily. She states she was on metoprolol in the past but is unsure why it was stopped. She does not recall any side effects. She believes she may have just stopped taking it. Will start in cardiac rehab. Instructed to call with any new or concerning symptoms. Emergency care if ever needed. Cardiology follow-up 3 months, sooner if needed (2) History of cardiac cath: Comment: 11/04/2023, left main normal, mid LAD 70 75% stenosis, left circumflex minimal irregularities, RCA proximal ostial 90% stenosis, KERRY placed Code(s): Z98.890 - Other specified postprocedural states Plan: Right femoral catheterization site healing well. (3) STEARNS (dyspnea on exertion): Code(s): R06.09 - Other forms of dyspnea Plan: As above (4) Essential hypertension: Code(s): I10 - Essential (primary) hypertension Plan: As above (5) Hyperlipidemia: Code(s): E78.5 - Hyperlipidemia, unspecified Plan: [place] LDL goal less than 70. Continue atorvastatin. Will order lipid profile and LFT to be done prior to next visit Plan Time spent on chart review, documentation, interview and assessment Orders: Orders Lipid Panel Today E78.5 - Hyperlipidemia, unspecified Comprehensive Met. Panel Today E78.5 - Hyperlipidemia, unspecified, I25.10 - Atherosclerotic heart disease of [place] coronary artery without angina pectoris Medications: New ticagrelor (Brilinta) 90 mg PO BID 60 tabs 5RF metoprolol succinate ER 25 mg PO DAILY 30 tabs 5RF Changed From atorvastatin 40 mg PO BEDTIME 60 tabs 3RF I25.118 - Atherosclerotic heart disease of [place] coronary artery with other forms of angina pectoris To atorvastatin 40 mg PO BEDTIME 30 tabs 5RF 30 days I25.118 - Atherosclerotic heart disease of [place] coronary artery with other forms of angina pectoris Coding Level of Care Code Est Pt Level 4 (29811) Diagnoses Coronary artery disease with stable angina pectoris, unspecified vessel or lesion type, unspecified whether [place] or transplanted heart I25.118 Associated angina: with stable angina Coronary Disease-Associated Artery/Lesion type: unspecified vessel or lesion type [place] vs. transplanted heart: unspecified whether [place] or transplanted heart History of cardiac cath Z98.890 STEARNS (dyspnea on exertion) R06.09 Essential hypertension I10 Hyperlipidemia E78.5 Time Spent (min) 28
== END 2023-11-18 13:59 | disposition home or self-care (01) ==
PROVIDERS: PCP Internal Medicine; Visit Provider Nurse Practitioner Family
DX: I25.118 Atherosclerotic heart disease of native coronary artery with other forms of angina pectoris (principal); Z98.890 Other specified postprocedural states; R06.09 Other forms of dyspnea; I10 Essential (primary) hypertension; E78.5 Hyperlipidemia, unspecified
CPT/HCPCS: 99214

== ENCOUNTER → 2023-11-18 13:06 | Outpatient (BNVA) | payer MEDICARE, SELFPAY | PROVIDERS: PCP Internal Medicine; Visit Provider Nurse Practitioner Family | DX: I25.118 Atherosclerotic heart disease of native coronary artery with other forms of angina pectoris (principal); I10 Essential (primary) hypertension; E78.5 Hyperlipidemia, unspecified; R06.09 Other forms of dyspnea; Z98.890 Other specified postprocedural states | CPT/HCPCS: 99212 ==

== ENCOUNTER 2024-01-15 06:47 | Emergency (ER) | payer MEDICARE, SELFPAY ==
--- NOTE | ~2024-01-15 | XR_ITS ---
EXAMINATION: XR CHEST CLINICAL INFORMATION: Dyspnea COMPARISON: 06/18/2023 TECHNIQUE: Frontal view of the chest was obtained. FINDINGS: Lungs grossly clear given AP portable technique. Previously described small nodules on the chest CT of 06/18/2023 are not conspicuous on this plain film. Heart and pulmonary vessels are normal. Sclerotic change overlies the left humeral head. There is degenerative change in both shoulders. XR/XR chest 1V IMPRESSION: No active disease.
--- NOTE | ~2024-01-15 | US_ITS ---
EXAMINATION: US VENOUS ULTRASOUND WITH DOPPLER LOWER EXTREMITY, RIGHT CLINICAL INFORMATION: Pain and swelling and concern for pseudoaneurysm COMPARISON: None available. TECHNIQUE: Ultrasound of the deep veins is performed from the hip to the calf with compression sonography and color and pulse Doppler assessment. Spectral analysis with color-flow imaging is performed. FINDINGS: There is normal venous compression and respiratory variation and augmented flow. The visualized common femoral vein, superficial femoral vein, profunda femoral vein, popliteal vein, and the trifurcation region shows no evidence of deep venous thrombosis. There is no significant popliteal fossa cyst. There is normal color flow in the adjacent right common femoral artery. No evidence for fistula or aneurysm formation. Several right inguinal nodes are seen, the largest measuring up to 24 x 10 x 12 mm. If the patient's symptoms persist, followup ultrasound in 5 days 7 days might be of value to exclude proximal propagation from a non-visualized calf vein. US/US venous duplex LE RT IMPRESSION: No DVT demonstrated in the right lower extremity. No evidence for fistula or pseudoaneurysm formation.
[2024-01-15 06:57] VITALS: BP 186/71; PULSE 81; RESP 18; TEMP 36.4; O2SAT 99; BMI 31.1
[2024-01-15 07:03] VITALS: BP 160/61
--- NOTE | 2024-01-15 07:17 | ECG_ITS ---
Test Reason : dyspnea Blood Pressure : / mmHG Vent. Rate : 067 BPM Atrial Rate : 067 BPM P-R Int : 198 ms QRS Dur : 128 ms QT Int : 444 ms P-R-T Axes : 040 -55 043 degrees QTc Int : 469 ms Normal sinus rhythm Right bundle branch block Left anterior fascicular block Bifascicular block Minimal voltage criteria for LVH, may be normal variant ( R in aVL ) Abnormal ECG No previous ECGs available Referred By: Angélica Barnard Electronically Signed By:EVERETTE CUI
--- NOTE | 2024-01-15 07:22 | ED.EXTPRO ---
HPI - Extremity Problem General Chief complaint: Extremity Problem Stated complaint: leg pain Time Seen by Provider: 01/15/24 07:07 Source: patient, family and old records reviewed Mode of arrival: ambulatory Limitations: no limitations History of Present Illness ED Provider: MAJO CLINE Narrative: 78 yo female with PMH of CAD s/p PCI with stent in October on Brilinta, HTN, HLD, asthma, MARY on CPAP here with c/o intermittent constant RLE swelling since cath. Notes had to stay overnight after cath due to issues with bleeding at site but then went home without a problem. She has not told her doctor and self treated at home with compression stocking. She has felt more fatigued and short of breath recently. Compliant with all medications. No cough/chest pain/fevers. MD Complaint: extremity swelling Onset (ago): month(s) (since October) Pain Consistency: intermittent Location: right and lower extremity Quality: dull Radiation: none Relieving factors: rest Exacerbating factors: walking Associated symptoms: denies other symptoms Context: other (post cardiac cath) Related Data Home Medications ?Medication ?Instructions ?Recorded ?Confirmed aspirin 81 mg tablet,delayed 81 mg PO DAILY 10/13/23 11/18/23 release (Adult Aspirin Regimen) doxycycline monohydrate 50 mg 50 mg PO DAILY 10/13/23 11/18/23 capsule levothyroxine 137 mcg capsule 137 mcg PO DAILY 10/13/23 11/18/23 meclizine 12.5 mg tablet 12.5 mg PO TID PRN dizziness 10/13/23 11/18/23 Previous Rx's ?Medication ?Instructions ?Recorded albuterol sulfate 90 mcg/actuation 2 inh inhalation Q6H PRN shortness 10/03/23 aerosol inhaler of breath or wheezing 30 days #18 grams atorvastatin 40 mg tablet 40 mg PO BEDTIME 30 days #30 tabs 11/18/23 metoprolol succinate 25 mg 25 mg PO DAILY #30 tabs 11/18/23 tablet,extended release 24 hr clopidogrel 75 mg tablet (Plavix) 75 mg PO DAILY #30 tabs 12/31/23 compress.stocking,knee,reg,med #12 ea 01/15/24 Allergies Allergy/AdvReac Type Severity Reaction Status Date / Time hydrochlorothiazide Allergy Severe High Verified 01/15/24 07:00 Sensitivity Vasculitis penicillin V Allergy Severe Hives Verified 01/15/24 07:00 sulfur Allergy Severe High Verified 01/15/24 07:00 Sensitivity Vasculitis Lisinopril Allergy Severe High Uncoded 01/15/24 07:00 Sensitivity Vasculitis Review of Systems Review of Systems: Constitutional : No Fever, No Chills ENT/Mouth : No Ear Pain, No Hoarseness, No sore throat Eyes: No Eye Pain, No Swelling, No Redness, No Foreign Body Cardiovascular : No Chest Pain, pos SOB, pos leg edema Respiratory : No Cough, No Dyspnea Gastrointestinal : No Nausea, No Vomiting, No Diarrhea, No abdominal Pain Genitourinary : No Dysuria, No Hematuria Musculoskeletal : no joint pain, No Myalgias, No Joint Swelling Skin : No Skin lacerations, No rash Neuro : No Weakness, No Numbness, No Loss of Consciousness, No Dizziness, No Headache Psych : No Anxiety/Panic, No Depression All other systems reviewed and are negative [facility] Past Medical History Attestation statement: The following information was validated with the patient. Source: old records reviewed Medical History CAD (coronary artery disease) MARY (obstructive sleep apnea) Pulmonary nodule Asthma MARY on CPAP Surgical History History of cardiac cath Family History Family History Father Pacemaker Social History Social History Patient Tobacco Use Status: Never used Tobacco Smoked in Last 30 Days: No Use of substances other than those prescribed or required for medical reasons: No Advance Directives: Yes Advance Directives on File: Yes Advance Directives Date on File: 10/13/23 Do you have a plan to hurt others: No Plan Physical Exam Vital Signs: Vital Signs: Last Vital Signs Temp 98.3 F 01/15/24 09:10 Pulse 64 01/15/24 09:10 Resp 16 01/15/24 09:10 BP 146/54 H 01/15/24 09:10 Pulse Ox 97 01/15/24 09:10 O2 Del Method Room Air 01/15/24 09:10 BMI result Body Mass Index 31.1 Appearance: Alert. Oriented X3. No acute distress. Eyes: Pupils equal, round and reactive to light. ENT: Pharynx normal. Neck: Normal inspection. Neck supple. CVS: Normal heart rate and rhythm. Pulses normal. Respiratory: No respiratory distress. Breath sounds normal. Abdomen: Soft and nontender. Skin: Skin warm and dry. Normal skin color. Normal skin turgor. Extremities: . No calf ttp R > L but it is not pitting until ankle and dorsum of foot then 1+ pulses intact no mass or thrill felt in groin Neuro: Oriented X 3. No motor deficit. No sensory deficit. Medical Decision Making Medical Decision Making [facility] Narrative: 78 yo female with PMH of CAD s/p PCI with stent in October on Brilinta, HTN, HLD, asthma, MARY on CPAP here with c/o R leg swelling since cath in October - pulses intact no signs of infection at this time could be DVT, lymphedema, venous insufficiency vs pseudoaneurysm will obtain labs, US of RLE. Differential Diagnosis Differential Diagnoses: The differential diagnosis associated with the presentation includes dvt, venous insufficiency, lymphedema, psuedoaneurysm Admission/Observation Consideration of admission/observation: Escalation of care including admission/observation considered work up negative stable for DC Lab Data [facility] Lab Attestation statement: I reviewed the patient's lab results. 01/15/24 07:39 01/15/24 07:39 Labs: Lab Results 01/15/24 Range/Units 07:39 WBC 9.5 (4.8-10.8) X10*3/uL RBC 4.48 (4.20-5.50) X10*6/uL Hgb 12.8 (12.0-16.0) g/dl Hct 39.1 (37.0-47.0) % MCV 87.3 (80.0-98.0) fL MCH 28.6 (27.0-33.0) pg MCHC 32.7 (31.0-35.0) g/dl RDW 14.6 (11.0-16.0) % Plt Count 309 (160-400) X10*3/uL MPV 10.7 (9.4-12.3) fL Immature Gran % (Auto) 0.8 H (0.0-0.4) % Neut % (Auto) 62.7 (45-73) % Lymph % (Auto) 26.4 (20-40) % [place] % (Auto) 6.2 (2-11) % Eos % (Auto) 2.7 (0-4) % Baso % (Auto) 1.2 (0-2) % Lymph # (Auto) 2.5 (1.2-4.9) X10*3/uL [place] # (Auto) 0.6 (0.1-1.2) X10*3/uL Eos # (Auto) 0.3 (0.0-0.4) X10*3/uL Baso # (Auto) 0.1 (0.0-0.2) X10*3/uL Abs Immat Gran (auto) 0.08 H (0.00-0.03) X10*3/uL Absolute Neuts (auto) 5.9 (2.0-8.3) x10*3/uL Absolute Nucleated RBC 0.000 (0.0-0.012) X10*3/uL Nucleated RBC % (auto) 0.0 (0.0-0.2) /100WBC Smear Tech's Comments VERIFIED Sodium 142 (135-145) mmol/L Potassium 4.5 D (3.3-5.1) mmol/L Chloride 106 (96-108) mmol/L Carbon Dioxide 26 (22-29) mmol/L Anion Gap 15 (12-20) BUN 16 (9-16) mg/dL Creatinine 1.02 (0.5-1.4) mg/dL Estim Creat Clear Calc 42.9 Estimated GFR 52 Random Glucose 112 (60-115) mg/dL Calcium 9.8 (8.4-10.2) mg/dL Magnesium 1.8 (1.6-2.6) mg/dL B-Natriuretic Peptide 102 H (<100) pg/mL Independent Interpretation I performed an independent interpretation of an: EKG, Plain X-Ray (normal ) and Ultrasound (no DVT) Interpretation: Rate: 67 Rhythm: NSR [place]: left Normal P waves. Normal DILMA. RBBB ST T wave : inverted t wave V1 and V2, no ALEIDA qTC: 469 prior studies: no acute ischemia The study has been interpreted contemporaneously by me. . Radiology Impression Discussion of test interpretation with radiology: I have reviewed the radiologist's reading. Independent Historian Clinical information obtained from an independent historian. History obtained from or confirmed by: Other (family) External Record Review External record reviewed: Outpatient record Prescription Management I considered prescription management with: Other Discharge Plan Discharge Clinical Impression: Leg edema, right Patient Disposition: Home, Self-Care Instructions: Leg Edema (ED) Additional Instructions: return for worsening redness, difficulty breathing, pain or any other concerns call vascular surgery to follow up with chronic swelling use compression stocking daily or can try tight soccer socks as discussed US/US venous duplex LE RT IMPRESSION: No DVT demonstrated in the right lower extremity. No evidence for fistula or pseudoaneurysm formation. Prescriptions: New (DME) compress.stocking,knee,reg,med Misc See Rx Instructions .Route Qty: 12 0RF Rx Instructions: As directed No Action albuterol sulfate 90 mcg/actuation HFA aerosol inhaler 2 inh inhalation Q6H PRN (Reason: shortness of breath or wheezing) 30 Days Qty: 18 12RF clopidogrel [Plavix] 75 mg tablet 75 mg PO DAILY Qty: 30 5RF Rx Instructions: Take last dose of Brilinta in the AM, then take 4 tabs of Plavix that evening, then take only one tab daily indefinitely. meclizine 12.5 mg tablet 12.5 mg PO TID PRN (Reason: dizziness) levothyroxine 137 mcg capsule 137 mcg PO DAILY aspirin [Adult Aspirin Regimen] 81 mg tablet,delayed release (DR/EC) 81 mg PO DAILY doxycycline monohydrate 50 mg capsule 50 mg PO DAILY metoprolol succinate 25 mg tablet extended release 24 hr 25 mg PO DAILY Qty: 30 5RF atorvastatin 40 mg tablet 40 mg PO BEDTIME 30 Days Qty: 30 5RF Print Language: [place]
[2024-01-15 07:45] LABS: Basophils Absolute Auto 0.1 X10*3/uL (0.0-0.2); Basophils Percent Auto 1.2 % (0-2); Eosinophils Absolute Auto 0.3 X10*3/uL (0.0-0.4); Eosinophils Percent Auto 2.7 % (0-4); Hematocrit 39.1 % (37.0-47.0); Hemoglobin 12.8 g/dl (12.0-16.0); Imm Gran Abs Auto 0.08 X10*3/uL (0.00-0.03); Imm Gran Pct Auto 0.8 % (0.0-0.4); Lymphocytes Absolute Auto 2.5 X10*3/uL (1.2-4.9); Lymphocytes Percent Auto 26.4 % (20-40); MANUAL DIFF FLAG SCAN; Mean Corpuscular HGB Conc 32.7 g/dl (31.0-35.0); Mean Corpuscular Hemoglobin 28.6 pg (27.0-33.0); Mean Corpuscular Volume 87.3 fL (80.0-98.0); Mean Platelet Volume 10.7 fL (9.4-12.3); Monocytes Absolute Auto 0.6 X10*3/uL (0.1-1.2); Monocytes Percent Auto 6.2 % (2-11); Neutrophils Absolute Auto 5.9 x10*3/uL (2.0-8.3); Neutrophils Percent Auto 62.7 % (45-73); Platelet Count 309 X10*3/uL (160-400); Red Blood Count 4.48 X10*6/uL (4.20-5.50); Red Cell Distribution Width 14.6 % (11.0-16.0); SCAN SMEAR FLAG 1; White Blood Count 9.5 X10*3/uL (4.8-10.8)
[2024-01-15 08:01] LABS: Anion Gap 15 (12-20); Blood Urea Nitrogen 16 mg/dL (9-16); Calcium 9.8 mg/dL (8.4-10.2); Carbon Dioxide 26 mmol/L (22-29); Chloride 106 mmol/L (96-108); Creatinine Clr Calc Pharmacy 42.9; Estimated Glomerular Filt Rate 52; Glucose Random 112 mg/dL (60-115); Magnesium 1.8 mg/dL (1.6-2.6); Potassium 4.5 mmol/L (3.3-5.1); Sodium 142 mmol/L (135-145)
[2024-01-15 08:10] LABS: SLIDE REVIEW VERIFIED
[2024-01-15 08:42] LABS: B Type Natriuretic Peptide 102 pg/mL (<100)
[2024-01-15 09:10] VITALS: BP 146/54; PULSE 64; RESP 16; TEMP 36.8; O2SAT 97
[2024-01-15 09:51] VITALS: BP 146/54; PULSE 64; RESP 16; TEMP 36.8; O2SAT 97
== END 2024-01-15 09:54 | disposition home or self-care (01) ==
PROVIDERS: Emergency Provider Emergency Medicine; PCP Internal Medicine
DX: R60.0 Localized edema (principal); M79.604 Pain in right leg; I25.10 Atherosclerotic heart disease of native coronary artery without angina pectoris; I10 Essential (primary) hypertension; J45.909 Unspecified asthma, uncomplicated; G47.33 Obstructive sleep apnea (adult) (pediatric); Z79.899 Other long term (current) drug therapy; Z95.5 Presence of coronary angioplasty implant and graft; Z99.89 Dependence on other enabling machines and devices
CPT/HCPCS: 36415; 71045; 80048; 83735; 83880; 85025; 93005; 93971; 99284

== ENCOUNTER → 2024-01-15 07:17 | Outpatient (BNV) | payer MEDICARE, SELFPAY | PROVIDERS: Emergency Provider Emergency Medicine; PCP Internal Medicine; Visit Provider Internal Medicine | DX: R94.31 Abnormal electrocardiogram [ECG] [EKG] (principal) | CPT/HCPCS: 93010 ==

== ENCOUNTER 2024-03-08 12:43 | Outpatient (AMB) | payer MEDICARE, SELFPAY ==
--- NOTE | 2024-03-08 12:53 | A.OFFVIS_ITS ---
Vital Signs 03/08/24 12:54 Height 5 ft 2 in Weight 177 lb 4.026 oz BMI 32.4 BP 150/60 H Blood Pressure Location Lt brachial Position Sitting Pulse 75 Pulse Source Pulse Oximeter Intake Visit Reasons: 3mth f/up Intake Note: 3 mth f/up/ pt is in office with headache and SOB. 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 Accompanied by: Self / Same As Patient Allergies hydrochlorothiazide Allergy (Severe, Verified 01/15/24 07:00) High Sensitivity Vasculitis penicillin V Allergy (Severe, Verified 01/15/24 07:00) Hives sulfur Allergy (Severe, Verified 01/15/24 07:00) High Sensitivity Vasculitis Lisinopril Allergy (Severe, Uncoded 01/15/24 07:00) High Sensitivity Vasculitis Medication List - Last Reconciled 03/08/24 by Yeyo Galindo MD albuterol sulfate 90 mcg/actuation 2 inhalations inhalation Q6H PRN 30 days aspirin (Adult Aspirin Regimen) 81 mg PO DAILY atorvastatin 40 mg PO BEDTIME 30 days clopidogrel (Plavix) 75 mg PO DAILY compress.stocking,knee,reg,med As directed cyanocobalamin (vitamin B-12) 2,500 mcg PO DAILY doxycycline monohydrate 50 mg PO DAILY [id number] mg 1 cap PO DAILY levothyroxine 137 mcg PO DAILY meclizine 12.5 mg PO TID PRN metoprolol succinate ER 25 mg PO DAILY milk thistle 200 mg PO BID HPI Comments Details: 79-year-old female who has a Jehovah Witness, has asthma, COPD, pulmonary nodules and hypertension who is presenting for abnormal coronary CTA. She follows up with Dr. Martinez for pulmonology. She has been experiencing dyspnea on exertion and chest pains off and on for long time. She has noticed that her dyspnea has worsening as well as she is getting some left-sided chest pains more frequently. She followed with Dr. Simmons but since his fpc she has not seen any jail manager at [facility]. She had a CT scan performed in January 2023 this showed 25% left main stenosis, 25% ostial LAD, 40% mid LAD and 70% mid to distal LAD stenosis. RCA had 50-70% stenosis at the ostium. CTA FFR was performed which was abnormal in the right coronary artery as well as distal LAD. She had an echocardiogram in 2021 which showed normal biventricular function with EF of 60 65% and no significant valvular pathology. Small pericardial effusion was noted. It appears she has not been able to get follow-up at [facility] and was referred to us for potential diagnostic angiography. The patient has been experiencing shortness of breath and gets out of breath very easily. She is saying that after minimal activity she has to rest. She also has been getting some left-sided chest pains. She has asthma and COPD and is on treatment for that. Her blood pressure is elevated. She is only on metoprolol which is a weak antihypertensive medication. Labs and imaging reviewed. 03/08/2024: She is here for follow-up. She underwent cardiac catheterization in 11/05/2023 which showed severe ostial right coronary artery stenosis which was treated with drug-eluting stent using intravascular ultrasound guidance. She also had a mid LAD 70% stenosis. On follow-up today, she has saying she's not feeling well today. She is short of breath due to the humidity. She also did not take her medications today. She is saying her blood pressure at home has been okay although in the office currently blood pressure is elevated. She said RCA PCI did not affect her breathing significantly and she continues to get shortness of breath. We discussed in detail that there is residual LAD stenosis present which needs to be addressed in the future. [facility] Medical History CAD (coronary artery disease) MRAY (obstructive sleep apnea) Pulmonary nodule Asthma MARY on CPAP Surgical History History of cardiac cath Family History Father Pacemaker Social History Patient Tobacco Use Status: Never used Tobacco Advance Directives Date on File: 10/13/23 Review of Systems Const Denies chills, Denies fatigue, Denies fever(s), Denies frequent falls, Denies weakness, Denies weight gain and Denies weight loss ENT Denies dizziness Card Denies chest pain, Reports leg edema, Denies lightheadedness, Denies palpitations, Reports dyspnea and Reports dyspnea on exertion Resp Denies cough, Reports dyspnea and Reports dyspnea on exertion GI Denies hematochezia Musc Denies abnormal gait, Denies muscle weakness, Denies numbness, Denies radiating pain into limb and Denies tingling Neuro Denies abnormal gait, Denies dizziness, Denies frequent falls, Denies numbness, Denies tingling and Denies weakness Endo Denies fatigue and Denies palpitations Physical Exam Vital Signs: Last Vital Signs Pulse 75 03/08/24 12:54 BP 150/60 H 03/08/24 12:54 BMI result Body Mass Index 32.4 GENERAL APPEARANCE: in no acute distress, pleasant. NECK: no carotid bruit, no jugular venous distention. SKIN: no suspicious lesions, warm and dry. HEART: no murmurs, regular rate and rhythm. LUNGS: clear to auscultation bilaterally. ABDOMEN: soft, nontender. EXTREMITIES: no edema. PERIPHERAL PULSES: equal. NEUROLOGIC: No gross deficits, AAO X 3 Assessment & Plan Assessment & Plan (1) Hyperlipidemia: Code(s): E78.5 - Hyperlipidemia, unspecified Category: Medical (2) STEARNS (dyspnea on exertion): Code(s): R06.09 - Other forms of dyspnea Category: Medical (3) Essential hypertension: Code(s): I10 - Essential (primary) hypertension Category: Medical (4) CAD (coronary artery disease): Comment: with abnromal CT coronary with 70% distal LAD and 70% proximal RCA Code(s): I25.10 - Atherosclerotic heart disease of [place] coronary artery without angina pectoris Category: Medical Qualifiers: Associated angina: with stable angina Coronary Disease-Associated Artery/Lesion type: unspecified vessel or lesion type [place] vs. transplanted heart: unspecified whether [place] or transplanted heart Qualified Code(s): I25.118 - Atherosclerotic heart disease of [place] coronary artery with other forms of angina pectoris Plan Very pleasant 79-year-old lady who is here for follow-up. She has known history of coronary artery disease with ostial RCA severe stenosis which was treated with drug-eluting stent and she is on dual antiplatelet therapy currently. She also has a mid LAD 70% stenosis which was medically treated previously. After RCA PCI she did not have any significant change in his shortness of breath. She has never had chest discomfort. She has other reasons to be short of breath including asthma. She has saying that she does not do well in humid environments and currently is more short of breath than usual. Blood pressure is elevated. I have increasing the metoprolol succinate to 50 mg daily. My plan was to add isosorbide mononitrate but she thinks her blood pressure is normal and will keep a log and today is just a stressful day. She will call us with a blood pressure log. Continue dual antiplatelet therapy as before. Thank you for allowing me to participate in the care of your patient. Please feel free to contact me if you have any questions. Medications: New metoprolol succinate ER 50 mg PO DAILY 90 tabs 3RF Discontinued metoprolol succinate ER Discontinued Reason: Doctor's Order 25 mg PO DAILY 30 tabs 5RF Coding Level of Care Code Est Pt Level 4 (10630) Diagnoses Hyperlipidemia E78.5 STEARNS (dyspnea on exertion) R06.09 Essential hypertension I10 Coronary artery disease with stable angina pectoris, unspecified vessel or lesion type, unspecified whether [place] or transplanted heart I25.118 Associated angina: with stable angina Coronary Disease-Associated Artery/Lesion type: unspecified vessel or lesion type [place] vs. transplanted heart: unspecified whether [place] or transplanted heart
[2024-03-08 12:54] VITALS: BP 150/60; PULSE 75; BMI 32.4
== END 2024-03-08 13:53 | disposition home or self-care (01) ==
PROVIDERS: PCP Internal Medicine; Visit Provider Internal Medicine Cardiovascular Disease
DX: E78.5 Hyperlipidemia, unspecified (principal); R06.09 Other forms of dyspnea; I10 Essential (primary) hypertension; I25.118 Atherosclerotic heart disease of native coronary artery with other forms of angina pectoris
CPT/HCPCS: 99214

== ENCOUNTER → 2024-03-08 12:43 | Outpatient (BNVA) | payer MEDICARE, SELFPAY | PROVIDERS: PCP Internal Medicine; Visit Provider Internal Medicine Cardiovascular Disease | DX: I25.118 Atherosclerotic heart disease of native coronary artery with other forms of angina pectoris (principal); I10 Essential (primary) hypertension; E78.5 Hyperlipidemia, unspecified; R06.09 Other forms of dyspnea | CPT/HCPCS: 99212 ==

== ENCOUNTER 2024-06-10 14:12 | Outpatient (REF) | payer MEDICARE, SELFPAY ==
--- NOTE | ~2024-06-10 | CT_ITS ---
EXAMINATION: CT CHEST WITHOUT CONTRAST CLINICAL INFORMATION: Follow-up pulmonary nodules. COMPARISON: None available. TECHNIQUE: Multidetector volumetric CT imaging of the chest was done. Axial MIP volume rendering provided. Sagittal and coronal reformatted images were obtained. This CT examination was performed using dose optimization techniques as appropriate, variously including the following: *Automated exposure control *Adjustment of mA and/or kV according to patient size (this includes techniques or standardized protocols for targeted exams where dose is matched to indication/reason for exam; i.e. extremities or head) *Use of iterative reconstruction technique DLP: 154 mGy-cm FINDINGS: PULMONARY NODULES: -Previously seen right lower lobe 2 mm nodule is not definitely identified on today's exam. -2 mm nodule left upper lobe, unchanged (series 5, image 231). -4 mm nodule in the superior segment left lower lobe, with pleural tag connecting to the major fissure, unchanged and consistent with intrapulmonary lymph node (series 5, image 231). -4 mm nodule lateral left lower lobe (series 5, image 391), stable. -3 mm calcified granuloma in the left lower lobe is unchanged. This is benign. -No new or enlarging pulmonary nodules. LUNGS: -Mild centrilobular emphysema redemonstrated. -Lungs otherwise clear. No consolidations or abnormal groundglass opacities. -No pleural or pericardial effusion. No pneumothorax. -No pleural masses or thickening. -Small airways appear normal. Large airways are patent. MEDIASTINUM: -Normal thyroid. -No abnormal lymphadenopathy or mediastinal mass. -Normal caliber aorta with mild atheromatous calcification. -Normal caliber pulmonary arteries. -Normal heart size. No pericardial effusion. There is calcification of the mitral annulus. -Normal esophagus. CORONARY ARTERY CALCIFICATION: Moderate three-vessel calcification. AXILLA/CHEST WALL: -No masses or lymphadenopathy. UPPER ABDOMEN: -Normal. OSSEOUS STRUCTURES: -No suspicious lytic or blastic bone lesions. CT/CT chest wo IV con IMPRESSION: 1. Stable examination. A few stable pulmonary nodules measuring up to 4 mm in the left lower lobe. These are benign. No new or enlarging pulmonary nodules. 2. Mild centrilobular emphysema. No active lung disease. 3. Additional ancillary findings as detailed. Fleischner guidelines were followed. Electronically signed by: Martinez House MD 08/03/2024 02:29 PM EST
== END 2024-06-10 14:13 | disposition home or self-care (01) ==
LOC: HO.CT 14:12
PROVIDERS: PCP Internal Medicine; Visit Provider Hospitalist
DX: R91.1 Solitary pulmonary nodule (principal)
CPT/HCPCS: 71250

== ENCOUNTER → 2024-06-10 14:13 | Outpatient (BNV) | payer MEDICARE, SELFPAY | PROVIDERS: PCP Internal Medicine; Visit Provider Radiology Diagnostic Radiology | DX: R91.8 Other nonspecific abnormal finding of lung field (principal) | CPT/HCPCS: 71250 ==

== ENCOUNTER 2024-07-20 08:34 | Outpatient (AMB) | payer MEDICARE, SELFPAY ==
[2024-07-20 08:37] VITALS: BP 134/70; PULSE 84; O2SAT 98; BMI 33.1
--- NOTE | 2024-07-20 08:37 | A.OFFVIS_ITS ---
Vital Signs 07/20/24 08:37 Height 5 ft 2 in Weight 180 lb 12.465 oz BMI 33.1 BP 134/70 Blood Pressure Location Lt brachial Position Sitting Pulse 84 Pulse Source Pulse Oximeter Pulse Oximetry (%) 98 Oxygen Delivery Method Room Air Intake Visit Reasons: Asthma Clinical Rn Liaison Required: No Shredded Filler Cigar Maker Machine: Shredded Filler Cigar Maker Machine offered & declined Accompanied by: Self / Same As Patient Allergies hydrochlorothiazide Allergy (Severe, Verified 07/20/24 08:44) High Sensitivity Vasculitis penicillin V Allergy (Severe, Verified 07/20/24 08:44) Hives sulfur Allergy (Severe, Verified 07/20/24 08:44) High Sensitivity Vasculitis Lisinopril Allergy (Severe, Uncoded 07/20/24 08:44) High Sensitivity Vasculitis Medication List - Last Reconciled 07/20/24 by Barb Esquivel LPN albuterol sulfate 90 mcg/actuation 2 inhalations inhalation Q6H PRN 30 days aspirin (Adult Aspirin Regimen) 81 mg PO DAILY atorvastatin 40 mg PO BEDTIME 30 days clopidogrel (Plavix) 75 mg PO DAILY compress.stocking,knee,reg,med As directed cyanocobalamin (vitamin B-12) 2,500 mcg PO DAILY doxycycline monohydrate 50 mg PO DAILY [id number] mg 1 cap PO DAILY levothyroxine 137 mcg PO DAILY meclizine 12.5 mg PO TID PRN metoprolol succinate ER 50 mg PO DAILY milk thistle 200 mg PO BID HPI Comments Details: The patient is a 79-year-old woman with a history of hypothyroidism who apparently was evaluated for cough. She was found to have wheezing on examination per report and she was diagnosed with with asthma. She was started on Ventolin inhaler. She used it once and did complaint of some left-sided discomfort on her chest. Subsequently at her discomfort persisted so she decided to use it again in December discomfort worse. Denied palpitations or fluttering sensations. She denies any radiation down the arm. She was evaluated at the [facility] because of the chest discomfort. There she had an x-ray demonstrating some evidence of bronchitis. Who otherwise no blood work was done. On further questioning she does states that she does have a are chronic cough. Usually nonproductive in nature. Tends to be intermittent not related to eating. Usually waxes and wanes. Denies any shortness of breath. She has never had allergy testing. She does states that she has a sister that has pulmonary fibrosis. She is a half sister which is concern that she could be developing a similar entity. She did have pulmonary function studies which we personally reviewed demonstrating a moderate restrictive ventilatory defect. She is concerned because her sister also has a history of pulmonary fibrosis. We did review her blood work including a positive CATINA with a elevated titer of 320:1. Therefore, additional blood tests warranted. Will also plan to repeat a chest x-ray. If there is no clear explanation for the restrictive lung disease then need to consider performing a CT scan of the chest to assess if there is any interstitial lung process. 02/15/2020 the patient is here for pulmonary follow-up visit. Overall she is doing okay. She has had some dyspnea on exertion. Nltd-xp-ihxzhlxo severity. Worse when she is going up a flight of stairs. She was concerned about pulmonary fibrosis specially with restrictive lung disease. Therefore we had ago for CT scan of the chest. No evidence of any interstitial lung disease noted. She does have small pulmonary nodules measuring 2-4 mm in size. She should have another repeat CT scan in a year's time. It is reassuring that she does not have any evidence of any interstitial lung disease she is very happy about that. In the meantime will try some respiratory therapy since she is having some wheezing on examination. 06/23/2020 the patient has a telephone visit. Overall the patient has been complaining of persistent daytime drowsiness. She also develops headaches in the morning. She did undergo sleep study demonstrating mild sleep apnea. The patient also has evidence of hypoxia. Based on her cardiovascular risk and her ongoing daytime drowsiness symptoms the patient will benefit from starting CPAP therapy. Again a pulmonary nodules were discussed. They are small, but, will need a follow-up CT scan a year from the last 1. Her respiratory symptoms are overall better. 01/22/2021 the patient is here for pulmonary follow-up visit. Since we last spoke the patient did try CPAP. However, she could not get used to the mask or to therapy. Therefore she returned it. We did again review her sleep study and it appears that she does well when she sleeps on her side. Therefore she will try positional therapy for now. She will closely monitor her Benton score. She still complaining of dyspnea on exertion. I did send a prescription for Advair to the pharmacy to treat bronchospasms and hopefully improve her respiratory status. But, the patient had a high deductible and therefore she did not fill it. The patient was provided with a coupon for Anoro and she is going to try the Anoro and will fill it if it helps. We also did review her CT scan of the chest demonstrating stable pulmonary nodules bilaterally. The patient will need another CT scan in a year's time. In the meantime she does complaint of back pain. 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 She will follow-up with her primary care doctor regarding that. She is also concerned about the mild coronary artery calcifications suggesting some degree of cholesterol buildup. Nothing to do at this time although the patient should consider dietary indiscretions and lifestyle changes. Again, she should follow up with her primary care doctor regarding any cardiovascular risk factors. 01/03/2022 the patient is here for a pulmonary follow-up visit. Overall t he patient has been doing relatively well. Has not been complaining of any asthma symptoms. She has not had to use her rescue inhaler. He has not used the Anoro, only a few times. However, she does have a postnasal drip. Usually is thin but she needs to carry him pressure because of some mention drippage. She denies any history of glaucoma. Therefore will start on ipratropium nasal spray. She continues to sleep well. She is avoiding sleeping supine. Has not had any issues with significant daytime drowsiness. the patient did undergo a repeat CT scan of the chest to monitor the pulmonary nodules. It appears that she has a new 5 mm ground-glass nodular density in the right hemithorax. We have reviewed the CT scan and 8 months with a follow-up at that time. 08/30/2022 the patient is here for a pulmonary Telehealth visit. The patient started developing a cough and chest congestion recently. Therefore she opted in a telehealth visit. She did have a cough which was productive in nature. Bmig-ch-bxsxxkxm severity. It appears that slowly improving. She did test negative for COVID-19. Denies any fevers or chills. Therefore, will hold off on any antibiotics at this time. She does have her inhalers which she is using. If the patient is no better she can come is call and I can send her some prednisone. The patient did have a recent CT scan of the chest in July 2022. We personally reviewed together. It appears that she has a new 4 mm ill- defined pulmonary nodule in the lingula area. She is concerned because is a new finding. I tried to reassure that is very small nodule. The patient will need close follow-up based on the appearance of the nodule. She does continue to use respiratory therapy as prescribed. The patient will call if she is no better and have a CXR. 04/29/2023 the patient is here for a pulmonary follow-up visit. She still complaining of some chest tightness and fatigue. Unfortunately back in January she did have a CT of the coronary arteries demonstrating couple blockages on the distal LAD and also proximal right coronary artery. It was stated to be about 70% obstruction. She has been very concerned about the findings. Although, she has not yet to have a diagnostic catheterization. She may need a percutaneous intervention. In the meantime the patient has been taking a baby aspirin. Explained to her that will go ahead and try to facilitate her catheterization to further address the ongoing symptoms and potential cardiac etiologies. If she continues to be symptomatic after her cardiac interventions then we will further address any ongoing symptoms done. The patient also had a CT scan of the chest back in July 2022 demonstrating pulmonary nodules that do need follow-up. She had a new 4 mm pulmonary nodule. The CT scan of the coronary arteries is not able to visualize the full lung tissue. Therefore will have her return sometime in early next year with a repeat CT scan to further follow up the pulmonary nodules. The patient will continue with current respiratory therapy. Any new issues arise the patient will call for an earlier assessment. 10/02/2023 the patient is here for a pulmonary follow-up visit. The patient still complaining of dyspnea on exertion chest tightness. Mainly with activity. She has been upset with Cardiology because she has not had her cardiac catheterization as of yet. She had the abnormal CT coronary scan and was supposed to follow-up with cardiology but there has been some delay in her care. She is concerned because she is still feeling shortness of breath with activity and chest tightness. Therefore I will make a referral here to [facility]. In the meantime, the patient did have a CT scan of the chest back in May 2023 demonstrating stable pulmonary nodules. There were between 3-5 mm in size. Will follow-up in a year's time which would be closer to the fall and at that point be able to follow-up with a CT scan 1 more time. If the nodules are stable I explained to the patient that these nodules are likely benign and do not need any additional follow-up. The patient also has a rescue inhaler that she has not required. Will follow-up in the fall after his CT scan of the chest. 07/20/2024 the patient is here for a pulmonary follow-up visit. Overall the patient has been doing fairly well from a respiratory status. She denies any shortness breath or any significant cough. We did review her last CT scan of the chest that she had in 06/06/2024. Unfortunately has not been officially read. I did look at the left lower lobe pulmonary nodule appears to still measure on 5 mm in size. She has other smaller nodular densities are also stable. Although, will continue to wait for the final read on the CT scan. The patient is complaining of other issues including knee discomfort and also back issues and she has been worked up for those conditions at this time. My cardiac standpoint she is also doing well. She is going to follow-up with a heavy equipment diesel mechanic soon. From a pulmonary standpoint she is doing well follow-up in a year's time. If any issues arise she can always call for an earlier assessment. [facility] Medical History (Updated 07/20/24 @ 21:02 by Evelio Martinez MD) Insomnia CAD (coronary artery disease) MARY (obstructive sleep apnea) Pulmonary nodule Asthma MARY on CPAP Surgical History History of cardiac cath Family History Father Pacemaker Social History Patient Tobacco Use Status: Never used Tobacco Advance Directives Date on File: 10/13/23 Review of Systems Const Denies daytime sleepiness, Reports fatigue, Denies night sweats, Reports snoring and Denies stops breathing during sleep ENT Denies change in voice, Denies lip swelling, Denies mouth pain, Reports nasal congestion, Reports nasal discharge and Denies neck pain Card Denies chest pain and Reports dyspnea on exertion Resp Reports cough, Reports dyspnea on exertion, Reports snoring and Denies wheezing GI Denies abdominal pain Musc Denies no additional complaints, Reports back pain and Denies neck pain Neuro Denies Neuro-related abnormal movements Psych Denies no additional complaints Endo Reports fatigue Antonio/Lymph Denies easy bleeding and Denies lymphadenopathy Aller/Immun Denies lip swelling and Denies wheezing Physical Exam Vital Signs: Last Vital Signs Pulse 84 07/20/24 08:37 BP 134/70 07/20/24 08:37 Pulse Ox 98 07/20/24 08:37 Oxygen Delivery Method Room Air 07/20/24 08:37 BMI result Body Mass Index 33.1 Const General: alert Neck Neck: Yes normal visual inspection, Yes full ROM and Yes no lymphadenopathy Chest Chest palpation & inspection: normal inspection of the chest Resp Auscultation: diminished lung sounds Cardio Rate: regular rate Rhythm: regular rhythm Heart sounds: S1 normal heart sound present and S2 normal heart sound present GI Palpation (GI): Soft to palpation and nontender Auscultation: normal bowel sounds Skin General skin exam: rashes and/or lesions noted Assessment & Plan Assessment & Plan (1) Pulmonary nodule: Code(s): R91.1 - Solitary pulmonary nodule Category: Medical (2) Asthma: Code(s): J45.909 - Unspecified asthma, uncomplicated Category: Medical Qualifiers: Asthma complication type: uncomplicated Asthma persistence: persistent Asthma severity: moderate Qualified Code(s): J45.40 - Moderate persistent asthma, uncomplicated (3) MARY (obstructive sleep apnea): Comment: Did not tolerate PAP therapy Code(s): G47.33 - Obstructive sleep apnea (adult) (pediatric) Category: Medical (4) CAD (coronary artery disease): Comment: with abnromal CT coronary with 70% distal LAD and 70% proximal RCA Code(s): I25.10 - Atherosclerotic heart disease of [place] coronary artery without angina pectoris Category: Medical Qualifiers: Associated angina: with stable angina Coronary Disease-Associated Artery/Lesion type: unspecified vessel or lesion type [place] vs. transplanted heart: unspecified whether [place] or transplanted heart Qualified Code(s): I25.118 - Atherosclerotic heart disease of [place] coronary artery with other forms of angina pectoris (5) Insomnia: Code(s): G47.00 - Insomnia, unspecified Category: Medical Qualifiers: Insomnia type: primary Qualified Code(s): F51.01 - Primary insomnia Plan YULI as needed positional therapy for MARY, should not sleep supine Melatonin Awaiting CT chest results, looks stable Ipratropium nasal spray F/U 8-12 months Coding Level of Care Code Est Pt Level 4 (32030) Diagnoses Pulmonary nodule R91.1 Moderate persistent asthma without complication J45.40 Asthma complication type: uncomplicated Asthma persistence: persistent Asthma severity: moderate MARY (obstructive sleep apnea) G47.33 Coronary artery disease with stable angina pectoris, unspecified vessel or lesion type, unspecified whether [place] or transplanted heart I25.118 Associated angina: with stable angina Coronary Disease-Associated Artery/Lesion type: unspecified vessel or lesion type [place] vs. transplanted heart: unspecified whether [place] or transplanted heart Primary insomnia F51.01 Insomnia type: primary Time Spent (min) 17
== END 2024-07-20 09:03 | disposition home or self-care (01) ==
PROVIDERS: PCP Internal Medicine; Visit Provider Hospitalist
DX: R91.1 Solitary pulmonary nodule (principal); J45.40 Moderate persistent asthma, uncomplicated; G47.33 Obstructive sleep apnea (adult) (pediatric); I25.118 Atherosclerotic heart disease of native coronary artery with other forms of angina pectoris; F51.01 Primary insomnia
CPT/HCPCS: 99214

== ENCOUNTER → 2024-07-20 08:34 | Outpatient (BNVA) | payer MEDICARE, SELFPAY | PROVIDERS: PCP Internal Medicine; Visit Provider Hospitalist | DX: J45.40 Moderate persistent asthma, uncomplicated (principal); R91.8 Other nonspecific abnormal finding of lung field; G47.33 Obstructive sleep apnea (adult) (pediatric); F51.01 Primary insomnia; I25.118 Atherosclerotic heart disease of native coronary artery with other forms of angina pectoris | CPT/HCPCS: 99212 ==

== ENCOUNTER 2024-08-02 13:40 | Outpatient (AMB) | payer MEDICARE, SELFPAY ==
--- OUTSIDE RECORDS SUMMARY | 2024-08-02 13:43 | XMS_ITS | Continuity of Care Document ---
Author Organization [facility] Address [address] [place] [address] [address] [place] [id number] Phone Care Team Providers Care Vice President Lending Name Role Phone Koko BIGGS FACS RVT Alexander ALTAMIRANO Unavailable Unavailable Procedures Procedure Date Office/Oupt E&M New Pt 30 Mins Advance Directives Directive Yes / No Effective Date File Name No Information Encounters Encounter Description Practice Location Reason(s) For Visit Diagnoses Date Provider Providers Copied on Encounter [facility], [address] [place] [address] [address], [id number], tel:[phone] [facility] No Information 3 Koko BIGGS FACS PRESTONT ADARSH [place]. [address], [address], [place]. tel:[phone] Referring Provider: Isaac Mejia Ludy Pritchett, [address] [place] [address], [address]. tel:[phone] Office/Oupt E&M New Pt 30 Mins [facility], [address] [place] [address] [address], [id number], [place] tel:[phone] [facility] Venous insufficiency (chronic) (peripheral)E ssential (primary) hypertensionF coy joint, unspecified jointLocalize d edema 3 Koko BIGGS FACS PRESTONT ADARSH [place]. [address] [facility] [address], [place], [address], [place]. tel:[phone] Referring Provider: Isaac Pritchett, [address] [place] [address], [address]. tel:[phone] Family History Family Member Type Diagnosis Age At Onset No Information Payers Payer name Insurance type Covered alliance party ID Authoriza tion(s) Medicare JENNI SALDANA [id number] BCBS JENNI CAVAZOS [id number] Social History Type Description Quantity Date Captured [...]
--- NOTE | 2024-08-02 13:49 | MHC.OFFVIS ---
Vital Signs 08/02/24 13:53 Height 5 ft 2 in Weight 173 lb 11.588 oz BMI 31.8 BP 140/64 H Blood Pressure Location Lt brachial Position Sitting Pulse 70 Pulse Source Pulse Oximeter Intake Visit Reasons: R/S 3mth f/up Intake Note: R/S 3 mth f/up- Entry Table Operator Required: No Accompanied by: Self / Same As Patient Allergies hydrochlorothiazide Allergy (Severe, Verified 07/20/24 08:44) High Sensitivity Vasculitis penicillin V Allergy (Severe, Verified 07/20/24 08:44) Hives sulfur Allergy (Severe, Verified 07/20/24 08:44) High Sensitivity Vasculitis Lisinopril Allergy (Severe, Uncoded 07/20/24 08:44) High Sensitivity Vasculitis Medication List - Last Reconciled 08/02/24 by Yeyo Galindo MD albuterol sulfate 90 mcg/actuation 2 inhalations inhalation Q6H PRN 30 days aspirin (Adult Aspirin Regimen) 81 mg PO DAILY clopidogrel (Plavix) 75 mg PO DAILY compress.stocking,knee,reg,med As directed cyanocobalamin (vitamin B-12) 2,500 mcg PO DAILY doxycycline monohydrate 50 mg PO DAILY [id number] mg 1 cap PO DAILY levothyroxine 137 mcg PO DAILY meclizine 12.5 mg PO TID PRN metoprolol succinate ER 50 mg PO DAILY milk thistle 200 mg PO BID HPI Comments Details: 79-year-old female who has a Jehovah Witness, has asthma, COPD, pulmonary nodules and hypertension who is presenting for abnormal coronary CTA. She follows up with Dr. Martinez for pulmonology. She has been experiencing dyspnea on exertion and chest pains off and on for long time. She has noticed that her dyspnea has worsening as well as she is getting some left-sided chest pains more frequently. She followed with Dr. Simmons but since his senior living she has not seen any streetcar conductor at [facility]. She had a CT scan performed in January 2023 this showed 25% left main stenosis, 25% ostial LAD, 40% mid LAD and 70% mid to distal LAD stenosis. RCA had 50-70% stenosis at the ostium. CTA FFR was performed which was abnormal in the right coronary artery as well as distal LAD. She had an echocardiogram in 2021 which showed normal biventricular function with EF of 60 65% and no significant valvular pathology. Small pericardial effusion was noted. It appears she has not been able to get follow-up at [facility] and was referred to us for potential diagnostic angiography. The patient has been experiencing shortness of breath and gets out of breath very easily. She is saying that after minimal activity she has to rest. She also has been getting some left-sided chest pains. She has asthma and COPD and is on treatment for that. Her blood pressure is elevated. She is only on metoprolol which is a weak antihypertensive medication. Labs and imaging reviewed. 03/08/2024: She is here for follow-up. She underwent cardiac catheterization in 11/05/2023 which showed severe ostial right coronary artery stenosis which was treated with drug-eluting stent using intravascular ultrasound guidance. She also had a mid LAD 70% stenosis. On follow-up today, she has saying she's not feeling well today. She is short of breath due to the humidity. She also did not take her medications today. She is saying her blood pressure at home has been okay although in the office currently blood pressure is elevated. She said RCA PCI did not affect her breathing significantly and she continues to get shortness of breath. We discussed in detail that there is residual LAD stenosis present which needs to be addressed in the future. 08/02/2024: She is back for follow-up. Denying any chest discomfort. She had some shortness of breath with recently which improved with inhalers. She has significant skin dryness and is asking whether atorvastatin is the reason and she has stopped using it. She also has fatty liver and is asking whether atorvastatin is safe. I have reassured her that she should take atorvastatin and I have advised her to take half a tablet for now and eventually go back to full tablet. No bleeding concerns. [facility] Medical History (Updated 08/02/24 @ 14:20 by Yeyo Galindo MD) Insomnia CAD (coronary artery disease) MARY (obstructive sleep apnea) Pulmonary nodule Asthma MARY on CPAP Surgical History History of cardiac cath Family History Father Pacemaker Social History Patient Tobacco Use Status: Never used Tobacco Advance Directives Date on File: 10/13/23 Review of Systems Const Denies chills, Denies fatigue, Denies fever(s), Denies frequent falls, Denies weakness, Denies weight gain and Denies weight loss ENT Denies dizziness Card Denies chest pain, Reports leg edema, Denies lightheadedness, Denies palpitations, Denies dyspnea and Denies dyspnea on exertion Resp Denies cough, Denies dyspnea and Denies dyspnea on exertion GI Denies hematochezia Musc Denies abnormal gait, Denies muscle weakness, Denies numbness, Denies radiating pain into limb and Denies tingling Neuro Denies abnormal gait, Denies dizziness, Denies frequent falls, Denies numbness, Denies tingling and Denies weakness Endo Denies fatigue and Denies palpitations Physical Exam Vital Signs: Last Vital Signs Pulse 70 08/02/24 13:53 BP 140/64 H 08/02/24 13:53 BMI result Body Mass Index 31.8 GENERAL APPEARANCE: in no acute distress, pleasant. NECK: no carotid bruit, no jugular venous distention. SKIN: no suspicious lesions, warm and dry. HEART: no murmurs, regular rate and rhythm. LUNGS: clear to auscultation bilaterally. ABDOMEN: soft, nontender. EXTREMITIES: no edema. PERIPHERAL PULSES: equal. NEUROLOGIC: No gross deficits, AAO X 3 Assessment & Plan Assessment & Plan (1) Essential hypertension: Code(s): I10 - Essential (primary) hypertension Category: Medical (2) Stable angina: Code(s): I20.89 - Other forms of angina pectoris Category: Medical (3) Hyperlipidemia: Code(s): E78.5 - Hyperlipidemia, unspecified Category: Medical (4) STEARNS (dyspnea on exertion): Code(s): R06.09 - Other forms of dyspnea Category: Medical (5) CAD (coronary artery disease): Comment: with abnromal CT coronary with 70% distal LAD and 70% proximal RCA Code(s): I25.10 - Atherosclerotic heart disease of [place] coronary artery without angina pectoris Category: Medical Qualifiers: Coronary Disease-Associated Artery/Lesion type: unspecified vessel or lesion type [place] vs. transplanted heart: unspecified whether [place] or transplanted heart Associated angina: with stable angina Qualified Code(s): I25.118 - Atherosclerotic heart disease of [place] coronary artery with other forms of angina pectoris Plan Very pleasant 79-year-old lady who is here for follow-up. She has known history of coronary artery disease with ostial RCA severe stenosis which was treated with drug-eluting stent and she is on dual antiplatelet therapy currently. She also has a mid LAD 70% stenosis which was medically treated previously. After RCA PCI she did not have any significant change in his shortness of breath. She has never had chest discomfort. She is asking whether LAD should be stented. I have advised her that if she had any concerning symptoms in the future then we will consider it. So far RCA PCI did not change her breathing and mostly shortness of breath improves with inhalers pointing to her asthma/lung disease being the main cause. Blood pressure is well controlled. She has some concerns about atorvastatin and will be taking half a tablet going forward and eventually will go back to full tablet. I have explained to her that her complaints are not due to atorvastatin and this is not a drug reaction. She has skin dryness which she should treat with Eucerin or other emollients. Continue dual antiplatelet therapy as before. Thank you for allowing me to participate in the care of your patient. Please feel free to contact me if you have any questions. Medications: New atorvastatin 40 mg PO BEDTIME 90 tabs 3RF Coding Level of Care Code Est Pt Level 4 (91539) Diagnoses Essential hypertension I10 Stable angina I20.89 Hyperlipidemia E78.5 STEARNS (dyspnea on exertion) R06.09 Coronary artery disease with stable angina pectoris, unspecified vessel or lesion type, unspecified whether [place] or transplanted heart I25.118 Coronary Disease-Associated Artery/Lesion type: unspecified vessel or lesion type [place] vs. transplanted heart: unspecified whether [place] or transplanted heart Associated angina: with stable angina
[2024-08-02 13:53] VITALS: BP 140/64; PULSE 70; BMI 31.8
== END 2024-08-02 14:23 | disposition home or self-care (01) ==
PROVIDERS: PCP Internal Medicine; Visit Provider Internal Medicine Cardiovascular Disease
DX: I10 Essential (primary) hypertension (principal); I20.89 Other forms of angina pectoris; E78.5 Hyperlipidemia, unspecified; R06.09 Other forms of dyspnea; I25.118 Atherosclerotic heart disease of native coronary artery with other forms of angina pectoris
CPT/HCPCS: 99214

== ENCOUNTER → 2024-08-02 13:40 | Outpatient (BNVA) | payer MEDICARE, SELFPAY | PROVIDERS: PCP Internal Medicine; Visit Provider Internal Medicine Cardiovascular Disease | DX: I10 Essential (primary) hypertension (principal); I20.89 Other forms of angina pectoris; I25.118 Atherosclerotic heart disease of native coronary artery with other forms of angina pectoris; E78.5 Hyperlipidemia, unspecified; R06.09 Other forms of dyspnea | CPT/HCPCS: 99212 ==

== ENCOUNTER 2024-11-29 13:49 | Outpatient (AMB) | payer MEDICARE, SELFPAY ==
--- NOTE | 2024-11-29 13:55 | A.OFFVIS_ITS ---
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 Required: No Accompanied by: Self / Same As Patient Allergies hydrochlorothiazide Allergy (Severe, Verified 07/20/24 08:44) High Sensitivity Vasculitis penicillin V Allergy (Severe, Verified 07/20/24 08:44) Hives sulfur Allergy (Severe, Verified 07/20/24 08:44) High Sensitivity Vasculitis Lisinopril Allergy (Severe, Uncoded 07/20/24 08:44) High Sensitivity Vasculitis Medication List - Last Reconciled 11/29/24 by Yeyo Galindo MD albuterol sulfate 90 mcg/actuation 2 inhalations inhalation Q6H PRN 30 days aspirin (Adult Aspirin Regimen) 81 mg PO DAILY atorvastatin 40 mg PO BEDTIME clopidogrel (Plavix) 75 mg PO DAILY compress.stocking,knee,reg,med As directed cyanocobalamin (vitamin B-12) 2,500 mcg PO DAILY doxycycline monohydrate 50 mg PO DAILY levothyroxine 137 mcg PO DAILY meclizine 12.5 mg PO TID PRN metoprolol succinate ER 50 mg PO DAILY milk thistle 200 mg PO BID HPI Comments Details: 79-year-old female who has a Jehovah Witness, has asthma, COPD, pulmonary nodules and hypertension who is presenting for abnormal coronary CTA. She follows up with Dr. Martinez for pulmonology. She has been experiencing dyspnea on exertion and chest pains off and on for long time. She has noticed that her dyspnea has worsening as well as she is getting some left-sided chest pains more frequently. She followed with Dr. Simmons but since his fpc she has not seen any potline monitor at [facility]. She had a CT scan performed in January 2023 this showed 25% left main stenosis, 25% ostial LAD, 40% mid LAD and 70% mid to distal LAD stenosis. RCA had 50-70% stenosis at the ostium. CTA FFR was performed which was abnormal in the right coronary artery as well as distal LAD. She had an echocardiogram in 2021 which showed normal biventricular function with EF of 60 65% and no significant valvular pathology. Small pericardial effusion was noted. It appears she has not been able to get follow-up at [facility] and was referred to us for potential diagnostic angiography. The patient has been experiencing shortness of breath and gets out of breath very easily. She is saying that after minimal activity she has to rest. She also has been getting some left-sided chest pains. She has asthma and COPD and is on treatment for that. Her blood pressure is elevated. She is only on metoprolol which is a weak antihypertensive medication. Labs and imaging reviewed. 03/08/2024: She is here for follow-up. She underwent cardiac catheterization in 11/05/2023 which showed severe ostial right coronary artery stenosis which was treated with drug-eluting stent using intravascular ultrasound guidance. She also had a mid LAD 70% stenosis. On follow-up today, she has saying she's not feeling well today. She is short of breath due to the humidity. She also did not take her medications today. She is saying her blood pressure at home has been okay although in the office currently blood pressure is elevated. She said RCA PCI did not affect her breathing significantly and she continues to get shortness of breath. We discussed in detail that there is residual LAD stenosis present which needs to be addressed in the future. 08/02/2024: She is back for follow-up. Denying any chest discomfort. She had some shortness of breath with recently which improved with inhalers. She has significant skin dryness and is asking whether atorvastatin is the reason and she has stopped using it. She also has fatty liver and is asking whether atorvastatin is safe. I have reassured her that she should take atorvastatin and I have advised her to take half a tablet for now and eventually go back to full tablet. No bleeding concerns. 11/29/2024: She is here for follow-up. She is complaining of dyspnea with activities. She is saying when she had RCA PCI her breathing did not improve and she has progressive shortness of breath since then. She has gained weight which is mostly not related to fluid buildup. She is following with pulmonology regularly. Blood pressure is elevated. [facility] Medical History (Updated 08/02/24 @ 14:20 by Yeyo Galindo MD) Insomnia CAD (coronary artery disease) MARY (obstructive sleep apnea) Pulmonary nodule Asthma MARY on CPAP Surgical History History of cardiac cath Family History Father Pacemaker Social History Patient Tobacco Use Status: Never used Tobacco Advance Directives Date on File: 10/13/23 Review of Systems Const Denies chills, Denies fatigue, Denies fever(s), Denies frequent falls, Denies weakness, Denies weight gain and Denies weight loss ENT Denies dizziness Card Denies chest pain, Denies leg edema, Denies lightheadedness, Denies palpitations, Denies dyspnea and Denies dyspnea on exertion Resp Denies cough, Denies dyspnea and Denies dyspnea on exertion GI Denies hematochezia Musc Denies abnormal gait, Denies muscle weakness, Denies numbness, Denies radiating pain into limb and Denies tingling Neuro Denies abnormal gait, Denies dizziness, Denies frequent falls, Denies numbness, Denies tingling and Denies weakness Endo Denies fatigue and Denies palpitations Physical Exam Vital Signs: Last Vital Signs Pulse 79 11/29/24 13:58 BP 150/62 H 11/29/24 13:58 BMI result Body Mass Index 33.4 GENERAL APPEARANCE: in no acute distress, pleasant. NECK: no carotid bruit, no jugular venous distention. SKIN: no suspicious lesions, warm and dry. HEART: no murmurs, regular rate and rhythm. LUNGS: clear to auscultation bilaterally. ABDOMEN: soft, nontender. EXTREMITIES: Trace edema. PERIPHERAL PULSES: equal. NEUROLOGIC: No gross deficits, AAO X 3 Office Procedures EKG Details: Sinus rhythm 79 beats per minute, right bundle-branch block, left anterior fascicular block, left ventricular hypertrophy, QTC 493 milliseconds. [id number], Complete Assessment & Plan Assessment & Plan (1) Stable angina: Code(s): I20.89 - Other forms of angina pectoris Category: Medical (2) History of cardiac cath: Comment: 11/04/2023, left main normal, mid LAD 70 75% stenosis, left circumflex minimal irregularities, RCA proximal ostial 90% stenosis, KERRY placed Code(s): Z98.890 - Other specified postprocedural states Category: Surgical (3) STEARNS (dyspnea on exertion): Code(s): R06.09 - Other forms of dyspnea Category: Medical (4) Essential hypertension: Code(s): I10 - Essential (primary) hypertension Category: Medical Plan [age] year female with progressive dyspnea on exertion. She has background history of asthma and follows with pulmonology. She also has gained weight and has slowed down over the last many months and is complaining more and more fatigue and shortness of breath. She underwent cardiac catheterization last year where severe ostial RCA and mid LAD stenosis was noted. We decided to treat the RCA 1st. Post PCI she was okay but she is saying that she did not have any significant change in her dyspnea. Clinically she is not overloaded but has some peripheral edema and hypertension. I have advised her to start taking low-dose Lasix. My initial plan was hydrochlorothiazide but it appears she had some allergic reaction to that. Difficult to say how much of dyspnea is related to coronary disease. Also after a year in stent restenosis in the right coronary artery is a possibility but it appears her breathing issues started before the PCI and continued. In any case I have explained to her that we can control of blood pressure and she can try some cardiac rehabilitation and see her senior hardware engineer but if no obvious cause is found then repeat angiography to reassess the right coronary artery ostial stent as well as mid LAD stenosis can be considered. If RCA is normal then I would consider treating the LAD to complete revascularization. If she continues to get dyspnea despite getting PCI to LAD and right coronary artery then very likely this is all related to lung disease or deconditioning. Follow-up in few months.. Thank you for allowing me to participate in the care of your patient. Please feel free to contact me if you have any questions. Orders: Orders Cardiac Rehab Today I20.89 - Other forms of angina pectoris Medications: New furosemide (Lasix) 20 mg PO DAILY 60 tabs 3RF R06.09 - Other forms of dyspnea Coding Level of Care Code Est Pt Level 5 (41385) Diagnoses Stable angina I20.89 History of cardiac cath Z98.890 STEARNS (dyspnea on exertion) R06.09 Essential hypertension I10 CPT Codes EKG - CPT: 40472-[id number], Complete ([id number])
[2024-11-29 13:58] VITALS: BP 150/62; PULSE 79; BMI 33.4
--- OUTSIDE RECORDS SUMMARY | 2024-11-29 16:01 | XMS_ITS | Continuity of Care Document ---
Author Organization [facility] Address [address] [place] [address] [address] [place] [phone] Phone Care Team Providers Care Building Services Technician Name Role Phone Koko BIGGS FACS RVT Alexander ALTAMIRANO Unavailable Unavailable Procedures Procedure Date Office/Oupt E&M New Pt 30 Mins Advance Directives Directive Yes / No Effective Date File Name No Information Encounters Encounter Description Practice Location Reason(s) For Visit Diagnoses Date Provider Providers Copied on Encounter [facility], [address] [place] [address] Dr [address], [id number], tel:[phone] [facility] No Information 3 Koko BIGGS FACS PRESTONT ADARSH [place]. [address], [address], [place]. tel:[phone] Referring Provider: Isaac Mejia Ludy Pritchett, [address] [place] [address], [id number]. tel:[phone] Office/Oupt E&M New Pt 30 Mins [facility], [address] [place] [address] Dr [address], [id number], [place] tel:[phone] [facility] Venous insufficiency (chronic) (peripheral)E ssential (primary) hypertensionF coy joint, unspecified jointLocalize d edema 3 Koko BIGGS FACS PRESTONT ADARSH [place]. [address] [facility] [address], [place], [address], [place]. tel:[phone] Referring Provider: Isaac Pritchett, [address] [place] [address], [address]. tel:[phone] Family History Family Member Type Diagnosis Age At Onset No Information Payers Payer name Insurance type Covered republican ID Authoriza tion(s) Medicare JENNI SALDANA [id number] BCBS JENNI CAVAZOS [id number] Social History Type Description Quantity Date Captured [...]
== END 2024-11-29 14:44 | disposition home or self-care (01) ==
LOC: HO.HCS 13:49
PROVIDERS: PCP Internal Medicine; Visit Provider Internal Medicine Cardiovascular Disease
DX: I20.89 Other forms of angina pectoris (principal); Z98.890 Other specified postprocedural states; R06.09 Other forms of dyspnea; I10 Essential (primary) hypertension; I45.2 Bifascicular block
CPT/HCPCS: 93010; 99214

== ENCOUNTER → 2024-11-29 13:49 | Outpatient (BNVA) | payer MEDICARE, SELFPAY | PROVIDERS: PCP Internal Medicine; Visit Provider Internal Medicine Cardiovascular Disease | DX: I10 Essential (primary) hypertension (principal); I20.89 Other forms of angina pectoris; R06.09 Other forms of dyspnea; Z98.890 Other specified postprocedural states | CPT/HCPCS: 93005; 99212 ==

== ENCOUNTER 2025-01-13 11:49 | Outpatient (RCR) | payer MEDICARE, SELFPAY | END 2025-02-24 10:44 | disposition home or self-care (01) | LOC: HO.CR 11:49 | PROVIDERS: PCP Internal Medicine; Visit Provider Internal Medicine Cardiovascular Disease | DX: I20.89 Other forms of angina pectoris (principal) | CPT/HCPCS: 93798 ==

== ENCOUNTER 2025-01-21 07:58 | Outpatient (REF) | payer MEDICARE, SELFPAY | END 2025-01-21 07:59 | disposition home or self-care (01) | LOC: HO.HOSX 07:58 | PROVIDERS: Visit Provider Physician Assistant | DX: Z13.89 Encounter for screening for other disorder (principal) ==

== ENCOUNTER 2025-03-09 10:32 | Outpatient (REF) | payer MEDICARE, SELFPAY ==
--- OUTSIDE RECORDS SUMMARY | 2023-01-29 04:42 | XMS_ITS | Continuity of Care Document ---
Author Organization [facility] Address [address] [place] [address] [address] [place] [phone] Phone Care Team Providers Care Secret Code Expert Name Role Phone Koko BIGGS FACS RVT Alexander ALTAMIRANO Unavailable Unavailable Procedures Procedure Date Office/Oupt E&M New Pt 30 Mins Advance Directives Directive Yes / No Effective Date File Name No Information Encounters Encounter Description Practice Location Reason(s) For Visit Diagnoses Date Provider Providers Copied on Encounter [facility], [address] [place] [address] [address], [id number], tel:[phone] [facility] No Information 3 Koko BIGGS FACS PRESTONT ADARSH [place]. [address], [address], [place]. tel:[phone] Referring Provider: Isaac Mejia Ludy Pritchett, [address] [place] [address], [address]. tel:[phone] Office/Oupt E&M New Pt 30 Mins [facility], [address] [place] [address] [address], [id number], [place] tel:[phone] [facility] Venous insufficiency (chronic) (peripheral)E ssential (primary) hypertensionF coy joint, unspecified jointLocalize d edema 3 Koko BIGGS FACS PRESTONT ADARSH [place]. [address] [facility] [address], [place], [address], [place]. tel:[phone] Referring Provider: Isaac Pritchett, [address] [place] [address], [address]. tel:[phone] Family History Family Member Type Diagnosis Age At Onset No Information Payers Payer name Insurance type Covered libertarian ID Authoriza tion(s) Medicare JENNI SALDANA [id number] BCBS JENNI CAVAZOS [id number] Social History Type Description Quantity Date Captured Comments Sex Female Smoking Status No Information Chief Complaint And Reason For Visit No Information Reason For Referral Reason For Referral No Information Plan Of Treatment Date Type Action Status Goal Diet education completed Referral Ordered: Weight management: Referral to physician timeframe: 3 Months (related to Body mass index (BMI) 32.0-32.9, adult) ordered History Of Present Illness Encounter Date Complaint History Of Prese nt Illness No Information Functional Status Date Functional Assessmen t No Information Instructions Date Instruction Additional Infor mation Diet education Related to Body mass index (BMI) 32.0-32.9, adult Giving Encouragement to exercise Related to Body mass index (BMI) 32.0-32.9, adult Lifestyle education Related to B [place] mass index (BMI) 32.0-32.9, adult Patient education booklet given Related to Venous insufficiency (chronic) (peripheral) Compression stocking usage as conservative measure Related to Venous insufficiency (chronic) (peripheral) Assessments Type Assessment Date No Information Patient Care Teams Name Effective Dates (start - stop) Status Members No Information
--- NOTE | ~2025-03-09 | XR_ITS ---
XR KNEE MATEUSZ 3V HISTORY: Bilateral knee pain. COMPARISON: None. TECHNIQUE: AP, lateral, and sunrise view each knee. FINDINGS: RIGHT KNEE: No fracture, dislocation, or suspicious bone lesion. Normal alignment. Mild medial and patellofemoral compartment joint space narrowing with minimal marginal osteophytic spurring. The lateral compartment is preserved. Normal patellar alignment. No abnormal patellar tilt. Mild spurring of the tibial spines. No evidence of joint effusion. Soft tissues appear normal. LEFT KNEE: No fracture, dislocation, or suspicious bone lesion. Normal alignment. Mild medial and patellofemoral compartment joint space narrowing with minimal marginal osteophytic spurring. The lateral compartment is preserved. Normal patellar alignment. No abnormal patellar tilt. Mild spurring of the tibial spines. No evidence of joint effusion. Soft tissues appear normal. XR/XR Knee Mateusz 3V IMPRESSION: 1. No acute bony abnormalities of either knee. No joint effusions. 2. Mild medial and patellofemoral compartment osteoarthrosis in each knee. Electronically signed by: Martinez House MD 03/09/2025 12:49 PM EDT
--- OUTSIDE RECORDS SUMMARY | 2025-03-10 11:24 | XMS_ITS | Clinical Summary ---
Author Organization [facility] Address [address] [place] [address] [place] [phone] Phone Care Team Providers Care Cloth Baler Name Role Phone Audrey Petersen MD Primary [...] file Insurance MEDICARE PART A & B [employer] SUPPLEMENT MEDICARE PART A & B [employer] MEDEX SUPPLEMENT MEDICARE PART A & B [employer] MEDEX SUPPLEMENT MEDICARE PART A & B Member Subscriber Plan / Payer (Ef fective 2009-Present) Name:Kassi Cortes Member ID:[id number] Relation to Subscriber:Self Name:Kassi Cortes Subscriber ID:[id number] Payer ID:[id number] Group ID:Not on file Type:Medicare Address: [facility] [employer] [email or web address] [address] [place] [address] [employer] MEDEX SUPPLEMENT MEDICARE PART A & B [employer] MEDEX SUPPLEMENT MEDICARE PART A & B [employer] CROSS MEDEX SUPPLEMENT Care Teams Cloth Baler Relationship Specialty Start Date End Date Audrey Petersen MD [address] [place] [phone] PCP - General Internal Medicine 08/25/23 Additional Source Comments The information contained in this document represents components of the legal health record. It is not the complete legal health record.[facility]
== END 2025-03-09 10:33 | disposition home or self-care (01) ==
LOC: HO.HOSX 10:32
PROVIDERS: Visit Provider Orthopaedic Surgery
DX: M17.0 Bilateral primary osteoarthritis of knee (principal)
CPT/HCPCS: 73562; 99202

== ENCOUNTER 2025-03-09 12:25 | Outpatient (AMB) | payer MEDICARE, SELFPAY ==
--- NOTE | 2025-03-09 12:42 | A.OFFVIS_ITS ---
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 She describes her pains as sharp and severe in nature. Her pains have gotten worse over the last few years in spite of continued non operative treatments. She has failed the last 3 months of conservative treatment which has included physical therapy exercises, a home exercise program, Tylenol and anti-inflammatory medicines. She has had cor tisone injections in the past. The most recent injection gave her minimal relief. She wishes to hold off on surgery if at all possible. Her bilateral knee pains are now interfering with her activities of daily living and her ability to sleep well through the night. Allergies hydrochlorothiazide Allergy (Severe, Verified 03/09/25 12:48) High Sensitivity Vasculitis penicillin V Allergy (Severe, Verified 03/09/25 12:48) Hives sulfur Allergy (Severe, Verified 03/09/25 12:48) High Sensitivity Vasculitis Lisinopril Allergy (Severe, Uncoded 07/20/24 08:44) High Sensitivity Vasculitis Medication List - Last Reviewed 03/09/25 by Tiffany De Leon albuterol sulfate 90 mcg/actuation 2 inhalations inhalation Q6H PRN 30 days amlodipine 10 mg PO DAILY aspirin (Adult Aspirin Regimen) 81 mg PO DAILY atorvastatin 40 mg PO BEDTIME clopidogrel (Plavix) 75 mg PO DAILY compress.stocking,knee,reg,med As directed cyanocobalamin (vitamin B-12) 2,500 mcg PO DAILY doxycycline hyclate 100 mg PO DAILY doxycycline monohydrate 50 mg PO DAILY ethacrynic acid 25 mg PO DAILY levothyroxine 137 mcg PO DAILY levothyroxine 137 mcg PO DAILY meclizine 12.5 mg PO TID PRN metoprolol succinate ER 50 mg PO DAILY milk thistle 200 mg PO BID [facility] Medical History (Updated 03/09/25 @ 13:05 by Allen Joiner MD) Insomnia CAD (coronary artery disease) MARY (obstructive sleep apnea) Pulmonary nodule Asthma MARY on CPAP Surgical History History of cardiac cath Family History Father Pacemaker Social History Patient Tobacco Use Status: Never used Tobacco Advance Directives Date on File: 10/13/23 Physical Exam Const Other: Well-nourished well-developed very friendly female awake alert and oriented x3 in no acute distress Extrem Other: Bilateral lower extremity examination shows good capillary refill, no skin lesions noted, normal sensation light touch Bilateral knee examination shows minimal effusions, palpable crepitus with range of motion, pain with range of motion, no instability Results Reviewed Results Reviewed: X-rays of the patient's bilateral knee show joint space narrowing, subchondral sclerosis, no acute bony abnormalities Assessment & Plan Assessment & Plan (1) Osteoarthritis of left knee: Code(s): M17.12 - Unilateral primary osteoarthritis, left knee Category: Medical (2) Osteoarthritis of right knee: Code(s): M17.11 - Unilateral primary osteoarthritis, right knee Category: Medical Plan Ms. Martinez presents with bilateral knee pains due to osteoarthritis. I had a lengthy discussion with the patient regarding the treatment options. I will see if her insurance company will cover a viscosupplementation injection, such as Durolane, for both of her knees. I will see her back once the injections are available. Feel free to call me at any time should questions regarding her orthopedic management arise. Thank you very much for asking me to see this very friendly patient. I spent 22 minutes in reviewing the patient's records and imaging studies, seeing the patient and documenting in the medical record. Orders: Orders XR Knee Mateusz 3V Today M25.561 - Pain in right knee, M25.562 - Pain in left knee Coding Level of Care Code New Pt Level 3 (68848) Complex EM visit Add On G2211 Diagnoses Osteoarthritis of left knee M17.12 Osteoarthritis of right knee M17.11
--- OUTSIDE RECORDS SUMMARY | 2025-03-09 12:52 | XMS_ITS | Clinical Summary ---
Author Organization [facility] Address [address] [place] [address] [place] [address] Phone Care Team Providers Care Flumer Name Role Phone Audrey Petersen MD Primary Care Provide r Social History Tobacco Use Types Packs/Day Years Used Date Smoking Tobacco: Never Assessed Education Answer Date Recorded Are you interested in more education? Not on tatiana e 09/03/2023 Are you concerned about learning? Not on file 09/03/2023 No 09/03/2023 No 09/03/2023 Digital Access Answer Date Recorded No 09/03/2023 No 09/03/2023 Reliable internet access at home? Not on file 09/03/2023 Device with a working camera? Not on file Comments Unknown Sex and Gender Information Value Date Recorded Sex Assigned at Not on file Legal Sex Female 10:38 PM EDT Gender Identity Not on file Sexual Orientation Not on file Plan of Treatment Health Maintenance Due Date Last Done Comments Adult Td,Tdap Booster 1944 DEPRESSION SCREENING 1956 PNEUMOCOCCAL VACCINES (50+ y ears) (1 of 1 - PCV) 01/23/1994 ZOSTER VACCINES (1 of 2) 01/23/1994 OSTEOPOROSIS SCREENING INITI AL (ONE-TIME) 01/23/2009 RSV VACCINE (1 - 1-dose 75+ series) 01/23/2019 COVID-19 VACCINE (2023-2 5 season) 2024 HEPATITIS A VACCINES Aged Out No long er eligible based on patient's age to complete this topic HIB VACCINES Aged Out No longer eligi ble based on patient's age to complete this topic MENINGOCOCCAL VACCINES (ACWY) Aged Out No longer eligible based on patient's age to complete this topic MENINGOCOCCAL VACCINES (B) Aged Out N o longer eligible based on patient's age to complete this topic Medical Devices Not on file Insurance MEDICARE PART A & B [employer] SUPPLEMENT MEDICARE PART A & B [employer] MEDEX SUPPLEMENT MEDICARE PART A & B [employer] MEDEX SUPPLEMENT MEDICARE PART A & B [employer] MEDEX SUPPLEMENT MEDICARE PART A & B [employer] MEDEX SUPPLEMENT MEDICARE PART A & B [employer] CROSS MEDEX SUPPLEMENT Care Teams Flumer Relationship Specialty Start Date End Date Audrey Petersen MD [address] [place] [phone] PCP - General Internal Medicine 08/25/23 Additional Source Comments The information contained in this document represents components of the legal health record. It is not the complete legal health record.[facility]
== END 2025-03-09 13:02 | disposition home or self-care (01) ==
LOC: HO.HOS 12:26
PROVIDERS: PCP Internal Medicine; Visit Provider Orthopaedic Surgery
DX: M17.0 Bilateral primary osteoarthritis of knee (principal)
CPT/HCPCS: 99203; G2211

== ENCOUNTER → 2025-03-09 12:30 | Outpatient (BNV) | payer MEDICARE, SELFPAY | PROVIDERS: Visit Provider Radiology Diagnostic Radiology | DX: M25.561 Pain in right knee (principal); M25.562 Pain in left knee | CPT/HCPCS: 73562 ==

== ENCOUNTER 2025-03-30 09:05 | Outpatient (AMB) | payer MEDICARE, SELFPAY ==
[2025-03-30 09:08] VITALS: BMI 33.3
--- NOTE | 2025-03-30 09:08 | MHC.OFFVIS ---
Vital Signs 03/30/25 09:08 Height 5 ft 2 in Weight 182 lb BMI 33.3 Intake Visit Reasons: Inj- Bilateral knee Durolane Inj. Intake Note: Kassi is an 80 year old female who presents with complaints of progressively worsening bilateral knee pains. She describes her pains as sharp and severe in nature. Her pains have gotten worse over the last few years in spite of continued non operative treatments. She has failed the last 3 months of conservative treatment which has included physical therapy exercises, a home exercise program, Tylenol and anti-inflammatory medicines. She has had cortisone injections in the past. The most recent injection gave her minimal relief. She wishes to hold off on surgery if at all possible. Her bilateral knee pains are now interfering with her activities of daily living and her ability to sleep well through the night. Allergies hydrochlorothiazide Allergy (Severe, Verified 03/30/25 09:08) High Sensitivity Vasculitis penicillin V Allergy (Severe, Verified 03/30/25 09:08) Hives sulfur Allergy (Severe, Verified 03/30/25 09:08) High Sensitivity Vasculitis Lisinopril Allergy (Severe, Uncoded 03/30/25 09:08) High Sensitivity Vasculitis Medication List - Last Reconciled 03/30/25 by Allen Joiner MD albuterol sulfate 90 mcg/actuation 2 inhalations inhalation Q6H PRN 30 days amlodipine 10 mg PO DAILY aspirin (Adult Aspirin Regimen) 81 mg PO DAILY atorvastatin 40 mg PO BEDTIME clopidogrel (Plavix) 75 mg PO DAILY compress.stocking,knee,reg,med As directed cyanocobalamin (vitamin B-12) 2,500 mcg PO DAILY doxycycline hyclate 100 mg PO DAILY ethacrynic acid 25 mg PO DAILY levothyroxine 137 mcg PO DAILY levothyroxine 137 mcg PO DAILY meclizine 12.5 mg PO TID PRN metoprolol succinate ER 50 mg PO DAILY milk thistle 200 mg PO BID PFSH Medical History Insomnia CAD (coronary artery disease) MARY (obstructive sleep apnea) Pulmonary nodule Asthma MARY on CPAP Surgical History History of cardiac cath Family History Father Pacemaker Social History Patient Tobacco Use Status: Never used Tobacco Advance Directives Date on File: 10/13/23 Physical Exam Vital Signs: BMI result Body Mass Index 33.3 Extrem Other: Bilateral knee examination shows minimal effusions, palpable crepitus with range of motion, pain with range of motion, no instability Office Procedures AMB Joint Injection/Aspiration Joint Injection/Aspiration Primary Site: left knee Prep: site was prepped using aseptic technique Injected: 60 mg of (Durolane viscosupplementation) and 1% plain lidocaine Procedure: The patient tolerated the procedure well Coding - Large joint Procedure code (CPT) selection complete AMB Joint Injection/Aspiration Joint Injection/Aspiration Primary Site: right knee Injected: 60 mg of (Durolane viscosupplementation) and 1% plain lidocaine Procedure: The patient tolerated the procedure well Coding - Large joint Procedure code (CPT) selection complete Assessment & Plan Assessment & Plan (1) Osteoarthritis of left knee: Code(s): M17.12 - Unilateral primary osteoarthritis, left knee Category: Medical (2) Osteoarthritis of right knee: Code(s): M17.11 - Unilateral primary osteoarthritis, right knee Category: Medical Plan Ms. Martinez presents with bilateral knee pains due to osteoarthritis. The risks and benefits of bilateral knee Durolane viscosupplementation injections were discussed at length with the patient. The patient wished to proceed. She tolerated the injections well. She will continue with her home exercise program. She will contact me prior to her follow-up appointment in 3 months should any questions or concerns arise. I spent 21 minutes in reviewing the patient's records and imaging studies, seeing the patient and documenting in the medical record. Orders: Orders AMB Joint Injection/Aspiration Today M17.11 - Unilateral primary osteoarthritis, right knee AMB Joint Injection/Aspiration Today M17.12 - Unilateral primary osteoarthritis, left knee Coding Level of Care Code Est Pt Level 3 (18011) Complex EM visit Add On G2211 Diagnoses Osteoarthritis of left knee M17.12 Osteoarthritis of right knee M17.11 CPT Codes Coding - 59345 Large joint: 08384 - Large joint ([id number]) Coding - 65900 Large joint: 88469 - Large joint ([id number])
--- OUTSIDE RECORDS SUMMARY | 2025-03-30 09:27 | XMS_ITS | Clinical Summary ---
Author Organization [facility] Address [address] [place] [address] [place] [address] Phone Care Team Providers Care Interior Mechanic Name Role Phone Audrey Petersen MD Primary [...] file Insurance MEDICARE PART A & B [employer] SUPPLEMENT MEDICARE PART A & B [employer] MEDEX SUPPLEMENT MEDICARE PART A & B [employer] MED[employer] SUPPLEMENT MEDICARE PART A & B [employer] MEDEX SUPPLEMENT MEDICARE PART A & B [employer] MEDEX SUPPLEMENT MEDICARE PART A & B [employer] MEDEX SUPPLEMENT Care Teams Interior Mechanic Relationship Specialty Start Date End Date Audrey Petersen MD [address] [place] [phone] PCP - General Internal Medicine 08/25/23 Additional Source Comments The information contained in this document represents components of the legal health record. It is not the complete legal health record.[facility]
== END 2025-03-30 09:44 | disposition home or self-care (01) ==
LOC: HO.HOS 09:05
PROVIDERS: Visit Provider Orthopaedic Surgery
DX: M17.0 Bilateral primary osteoarthritis of knee (principal)
CPT/HCPCS: 20610; 99213

== ENCOUNTER → 2025-03-30 09:05 | Outpatient (BNVA) | payer MEDICARE, SELFPAY | PROVIDERS: Visit Provider Orthopaedic Surgery | DX: M17.0 Bilateral primary osteoarthritis of knee (principal) | CPT/HCPCS: 20610; 99212; J2003; J7318 ==

== ENCOUNTER 2025-07-18 10:39 | Outpatient (AMB) | payer MEDICARE, SELFPAY ==
[2025-07-18 10:49] VITALS: BP 144/50; BMI 30.2
--- NOTE | 2025-07-18 10:49 | MHC.OFFVIS ---
Vital Signs 07/18/25 10:49 Height 5 ft 2 in Weight 165 lb 5.547 oz BMI 30.2 BP 144/50 H Blood Pressure Location Lt brachial Position Sitting Intake Visit Reasons: Asthma Dampproofer Required: No Accompanied by: Self / Same As Patient Allergies hydrochlorothiazide Allergy (Severe, Verified 07/18/25 10:53) High Sensitivity Vasculitis penicillin V Allergy (Severe, Verified 07/18/25 10:53) Hives sulfur Allergy (Severe, Verified 07/18/25 10:53) High Sensitivity Vasculitis Lisinopril Allergy (Severe, Uncoded 03/30/25 09:08) High Sensitivity Vasculitis HPI Comments Details: The patient is a 80-year-old woman with a history of hypothyroidism who apparently was evaluated for cough. She was found to have wheezing on examination per report and she was diagnosed with with asthma. She was started on Ventolin inhaler. She used it once and did complaint of some left-sided discomfort on her chest. Subsequently at her discomfort persisted so she decided to use it again in December discomfort worse. Denied palpitations or fluttering sensations. She denies any radiation down the arm. She was evaluated at the [facility] because of the chest discomfort. There she had an x-ray demonstrating some evidence of bronchitis. Who otherwise no blood work was done. On further questioning she does states that she does have a are chronic cough. Usually nonproductive in nature. Tends to be intermittent not related to eating. Usually waxes and wanes. Denies any shortness of breath. She has never had allergy testing. She does states that she has a sister that has pulmonary fibrosis. She is a half sister which is concern that she could be developing a similar entity. She did have pulmonary function studies which we personally reviewed demonstrating a moderate restrictive ventilatory defect. She is concerned because her sister also has a history of pulmonary fibrosis. We did review her blood work including a positive CATINA with a elevated titer of 320:1. Therefore, additional blood tests warranted. Will also plan to repeat a chest x-ray. If there is no clear explanation for the restrictive lung disease then need to consider performing a CT scan of the chest to assess if there is any interstitial lung process. 02/15/2020 the patient is here for pulmonary follow-up visit. Overall she is doing okay. She has had some dyspnea on exertion. Ffzb-gr-upmjfnfe severity. Worse when she is going up a flight of stairs. She was concerned about pulmonary fibrosis specially with restrictive lung disease. Therefore we had ago for CT scan of the chest. No evidence of any interstitial lung disease noted. She does have small pulmonary nodules measuring 2-4 mm in size. She should have another repeat CT scan in a year's time. It is reassuring that she does not have any evidence of any interstitial lung disease she is very happy about that. In the meantime will try some respiratory therapy since she is having some wheezing on examination. 06/23/2020 the patient has a telephone visit. Overall the patient has been complaining of persistent daytime drowsiness. She also develops headaches in the morning. She did undergo sleep study demonstrating mild sleep apnea. The patient also has evidence of hypoxia. Based on her cardiovascular risk and her ongoing daytime drowsiness symptoms the patient will benefit from starting CPAP therapy. Again a pulmonary nodules were discussed. They are small, but, will need a follow-up CT scan a year from the last 1. Her respiratory symptoms are overall better. 01/22/2021 the patient is here for pulmonary follow-up visit. Since we last spoke the patient did try CPAP. However, she could not get used to the mask or to therapy. Therefore she returned it. We did again review her sleep study and it appears that she does well when she sleeps on her side. Therefore she will try positional therapy for now. She will closely monitor her [place] score. She still complaining of dyspnea on exertion. I did send a prescription for Advair to the pharmacy to treat bronchospasms and hopefully improve her respiratory status. But, the patient had a high deductible and therefore she did not fill it. The patient was provided with a coupon for Anoro and she is going to try the Anoro and will fill it if it helps. We also did review her CT scan of the chest demonstrating stable pulmonary nodules bilaterally. The patient will need another CT scan in a year's time. In the meantime she does complaint of back pain. 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 She will follow-up with her primary care doctor regarding that. She is also concerned about the mild coronary artery calcifications suggesting some degree of cholesterol buildup. Nothing to do at this time although the patient should consider dietary indiscretions and lifestyle changes. Again, she should follow up with her primary care doctor regarding any cardiovascular risk factors. 01/03/2022 the patient is here for a pulmonary follow-up visit. Overall the patient has been doing relatively well. Has not been complaining of any asthma symptoms. She has not had to use her rescue inhaler. He has not used the Anoro, only a few times. However, she does have a postnasal drip. Usually is thin but she needs to carry him pressure because of some mention drippage. She denies any history of glaucoma. Therefore will start on ipratropium nasal spray. She continues to sleep well. She is avoiding sleeping supine. Has not had any issues with significant daytime drowsiness. the patient did undergo a repeat CT scan of the chest to monitor the pulmonary nodules. It appears that she has a new 5 mm ground-glass nodular density in the right hemithorax. We have reviewed the CT scan and 8 months with a follow-up at that time. 08/30/2022 the patient is here for a pulmonary Telehealth visit. The patient started developing a cough and chest congestion recently. Therefore she opted in a telehealth visit. She did have a cough which was productive in nature. Fufg-py-tyzndwfu severity. It appears that slowly improving. She did test negative for COVID-19. Denies any fevers or chills. Therefore, will hold off on any antibiotics at this time. She does have her inhalers which she is using. If the patient is no better she can come is call and I can send her some prednisone. The patient did have a recent CT scan of the chest in July 2022. We personally reviewed together. It appears that she has a new 4 mm ill-defined pulmonary nodule in the lingula area. She is concerned because is a new finding. I tried to reassure that is very small nodule. The patient will need close follow-up based on the appearance of the nodule. She does continue to use respiratory therapy as prescribed. The patient will call if she is no better and have a CXR. 04/29/2023 the patient is here for a pulmonary follow-up visit. She still complaining of some chest tightness and fatigue. Unfortunately back in January she did have a CT of the coronary arteries demonstrating couple blockages on the distal LAD and also proximal right coronary artery. It was stated to be about 70% obstruction. She has been very concerned about the findings. Although, she has not yet to have a diagnostic catheterization. She may need a percutaneous intervention. In the meantime the patient has been taking a baby aspirin. Explained to her that will go ahead and try to facilitate her catheterization to further address the ongoing symptoms and potential cardiac etiologies. If she continues to be symptomatic after her cardiac interventions then we will further address any ongoing symptoms done. The patient also had a CT scan of the chest back in July 2022 demonstrating pulmonary nodules that do need follow-up. She had a new 4 mm pulmonary nodule. The CT scan of the coronary arteries is not able to visualize the full lung tissue. Therefore will have her return sometime in early next year with a repeat CT scan to further follow up the pulmonary nodules. The patient will continue with current respiratory therapy. Any new issues arise the patient will call for an earlier assessment. 10/02/2023 the patient is here for a pulmonary follow-up visit. The patient still complaining of dyspnea on exertion chest tightness. Mainly with activity. She has been upset with Cardiology because she has not had her cardiac catheterization as of yet. She had the abnormal CT coronary scan and was supposed to follow-up with cardiology but there has been some delay in her care. She is concerned because she is still feeling shortness of breath with activity and chest tightness. Therefore I will make a referral here to [facility]. In the meantime, the patient did have a CT scan of the chest back in May 2023 demonstrating stable pulmonary nodules. There were between 3-5 mm in size. Will follow-up in a year's time which would be closer to the fall and at that point be able to follow-up with a CT scan 1 more time. If the nodules are stable I explained to the patient that these nodules are likely benign and do not need any additional follow-up. The patient also has a rescue inhaler that she has not required. Will follow-up in the fall after his CT scan of the chest. 07/20/2024 the patient is here for a pulmonary follow-up visit. Overall the patient has been doing fairly well from a respiratory status. She denies any shortness breath or any significant cough. We did review her last CT scan of the chest that she had in 06/06/2024. Unfortunately has not been officially read. I did look at the left lower lobe pulmonary nodule appears to still measure on 5 mm in size. She has other smaller nodular densities are also stable. Although, will continue to wait for the final read on the CT scan. The patient is complaining of other issues including knee discomfort and also back issues and she has been worked up for those conditions at this time. My cardiac standpoint she is also doing well. She is going to follow-up with a crimp setter soon. From a pulmonary standpoint she is doing well follow-up in a year's time. If any issues arise she can always call for an earlier assessment. 07/18/2025 the patient is here for pulmonary follow-up visit. Overall the patient seems to be doing well although in May she apparently had a syncopal episode. She was with her daughter she called the ambulance. 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 She was placed on Plavix and she was already on aspirin. She is going to see Cardiology today. She also has a history of CAD status post PCI in the past. The patient had been on CPAP therapy but she has a hard time tolerating it. She does have an elevated [place] score of 11/24. Will go ahead and repeat her sleep study at this time. She is going to follow up with Cardiology as well. I did bring up the question of using anticoagulation. Therefore she can discuss that further with her crimp setter in the that is of any help. The patient will return in 4 months after her sleep study. If any issues arise she can always call for further recommendations. COUNT INCLUDES THE [facility] Medical History CVA (cerebral vascular accident) Insomnia CAD (coronary artery disease) MARY (obstructive sleep apnea) Pulmonary nodule Asthma MARY on CPAP Surgical History History of cardiac cath Family History Father Pacemaker Social History Patient Tobacco Use Status: Never used Tobacco Advance Directives Date on File: 10/13/23 Review of Systems Const Denies daytime sleepiness, Reports fatigue, Denies night sweats, Reports snoring and Denies stops breathing during sleep ENT Denies change in voice, Denies lip swelling, Denies mouth pain, Reports nasal congestion, Reports nasal discharge and Denies neck pain Card Denies chest pain and Reports dyspnea on exertion Resp Reports cough, Reports dyspnea on exertion, Reports snoring and Denies wheezing GI Denies abdominal pain Musc Denies no additional complaints, Reports back pain and Denies neck pain Neuro Reports as per HPI Psych Denies no additional complaints Endo Reports fatigue Antonio/Lymph Denies easy bleeding and Denies lymphadenopathy Aller/Immun Denies lip swelling and Denies wheezing Physical Exam Vital Signs: Last Vital Signs BP 144/50 H 07/18/25 10:49 BMI result Body Mass Index 30.2 Const General: alert Neck Neck: Yes normal visual inspection, Yes full ROM and Yes no lymphadenopathy Chest Chest palpation & inspection: normal inspection of the chest Resp Effort & Inspection: normal respiratory effort Auscultation: clear to auscultation bilaterally Cardio Rate: regular rate Rhythm: regular rhythm Heart sounds: S1 normal heart sound present and S2 normal heart sound present GI Palpation (GI): Soft to palpation and nontender Auscultation: normal bowel sounds Skin General skin exam: rashes and/or lesions noted Assessment & Plan Assessment & Plan (1) Pulmonary nodule: Code(s): R91.1 - Solitary pulmonary nodule Category: Medical (2) Asthma: Code(s): J45.909 - Unspecified asthma, uncomplicated Category: Medical Qualifiers: Asthma complication type: uncomplicated Asthma persistence: persistent Asthma severity: moderate Qualified Code(s): J45.40 - Moderate persistent asthma, uncomplicated (3) MARY (obstructive sleep apnea): Comment: Did not tolerate PAP therapy Code(s): G47.33 - Obstructive sleep apnea (adult) (pediatric) Category: Medical (4) CAD (coronary artery disease): Comment: with abnromal CT coronary with 70% distal LAD and 70% proximal RCA Code(s): I25.10 - Atherosclerotic heart disease of [place] coronary artery without angina pectoris Category: Medical Qualifiers: Associated angina: with stable angina Coronary Disease-Associated Artery/Lesion type: unspecified vessel or lesion type [place] vs. transplanted heart: unspecified whether [place] or transplanted heart Qualified Code(s): I25.118 - Atherosclerotic heart disease of [place] coronary artery with other forms of angina pectoris (5) Insomnia: Code(s): G47.00 - Insomnia, unspecified Category: Medical Qualifiers: Insomnia type: primary Qualified Code(s): F51.01 - Primary insomnia Plan YULI as needed positional therapy for MARY, should not sleep supine Melatonin Ipratropium nasal spray in lab PSG F/U 4 months Orders: Orders RT PSG in-lab sleep study Today G47.33 - Obstructive sleep apnea (adult) (pediatric), I25.118 - Atherosclerotic heart disease of [place] coronary artery with other forms of angina pectoris, I63.9 - Cerebral infarction, unspecified Coding Level of Care Code Complex visit Add On G2211 Diagnoses Pulmonary nodule R91.1 Moderate persistent asthma without complication J45.40 Asthma complication type: uncomplicated Asthma persistence: persistent Asthma severity: moderate MARY (obstructive sleep apnea) G47.33 Coronary artery disease with stable angina pectoris, unspecified vessel or lesion type, unspecified whether [place] or transplanted heart I25.118 Associated angina: with stable angina Coronary Disease-Associated Artery/Lesion type: unspecified vessel or lesion type [place] vs. transplanted heart: unspecified whether [place] or transplanted heart Primary insomnia F51.01 Insomnia type: primary Time Spent (min) 18
--- OUTSIDE RECORDS SUMMARY | 2025-07-18 13:34 | XMS_ITS | Clinical Summary ---
Author Organization [facility] Address [address] [place] [phone] Phone Care Team Providers Care Awake Overnight Monitor Name Role Phone Audrey Petersen MD Primary [...] VACCINE (1 - 1-dose 75+ series) 01/23/2019 INFLUENZA VACCINE (#1) 2025 COVID-19 VACCINE ( - 2024-2 6 season) 2025 HEPATITIS A VACCINES Aged Out No long [...] file Insurance MEDICARE PART A & B [employer] SUPPLEMENT MEDICARE PART A & B [employer] [place] [employer] SUPPLEMENT MEDICARE PART A & B [facility] MED[facility] SUPPLEMENT MEDICARE PART A & B [place] SUPPLEMENT MEDICARE PART A & B [place] SUPPLEMENT MEDICARE PART A & B [employer] MEDEX SUPPLEMENT Care Teams Awake Overnight Monitor Relationship Specialty Start Date End Date Audrey Petersen MD [address] [place] [id number] PCP - General Internal Medicine 08/25/23 Additional Source Comments The information contained in this document represents components of the legal health record. It is not the complete legal health record.[facility]
== END 2025-07-18 11:22 | disposition home or self-care (01) ==
LOC: HO.HPS 10:40
PROVIDERS: PCP Internal Medicine; Visit Provider Hospitalist
DX: R91.1 Solitary pulmonary nodule (principal); J45.40 Moderate persistent asthma, uncomplicated; G47.33 Obstructive sleep apnea (adult) (pediatric); I25.118 Atherosclerotic heart disease of native coronary artery with other forms of angina pectoris; F51.01 Primary insomnia
CPT/HCPCS: 99213; G2211

== ENCOUNTER → 2025-07-18 10:39 | Outpatient (BNVA) | payer MEDICARE, SELFPAY | PROVIDERS: PCP Internal Medicine; Visit Provider Hospitalist | DX: J45.40 Moderate persistent asthma, uncomplicated (principal); F51.01 Primary insomnia; I10 Essential (primary) hypertension; I25.118 Atherosclerotic heart disease of native coronary artery with other forms of angina pectoris; Z86.73 Personal history of transient ischemic attack (TIA), and cerebral infarction without residual deficits; Z79.82 Long term (current) use of aspirin; Z79.01 Long term (current) use of anticoagulants | CPT/HCPCS: 99212 ==

== ENCOUNTER 2025-07-18 11:39 | Outpatient (AMB) | payer MEDICARE, SELFPAY ==
--- NOTE | 2025-07-18 12:45 | A.OFFVIS_ITS ---
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: No Accompanied by: Self / Same As Patient Allergies hydrochlorothiazide Allergy (Severe, Verified 07/18/25 10:53) High Sensitivity Vasculitis penicillin V Allergy (Severe, Verified 07/18/25 10:53) Hives sulfur Allergy (Severe, Verified 07/18/25 10:53) High Sensitivity Vasculitis Lisinopril Allergy (Severe, Uncoded 03/30/25 09:08) High Sensitivity Vasculitis Medication List - Last Reconciled 07/18/25 by Yeyo Galindo MD albuterol sulfate 90 mcg/actuation 2 inhalations inhalation Q6H PRN 30 days amlodipine 10 mg PO DAILY aspirin (Adult Aspirin Regimen) 81 mg PO DAILY atorvastatin 40 mg PO BEDTIME clopidogrel (Plavix) 75 mg PO DAILY compress.stocking,knee,reg,med As directed cyanocobalamin (vitamin B-12) 2,500 mcg PO DAILY ethacrynic acid 25 mg PO DAILY levothyroxine 137 mcg PO DAILY levothyroxine 137 mcg PO DAILY meclizine 12.5 mg PO TID PRN metoprolol succinate ER 50 mg PO DAILY milk thistle 200 mg PO BID HPI Comments Details: 80-year-old female who has a Jehovah Witness, has asthma, COPD, pulmonary nodules and hypertension who is presenting for abnormal coronary CTA. She follows up with Dr. Martinez for pulmonology. She has been experiencing dyspnea on exertion and chest pains off and on for long time. She has noticed that her dyspnea has worsening as well as she is getting some left-sided chest pains more frequently. She followed with Dr. Simmons but since his senior care she has not seen any traffic warehouse supervisor at [facility]. She had a CT scan performed in January 2023 this showed 25% left main stenosis, 25% ostial LAD, 40% mid LAD and 70% mid to distal LAD stenosis. RCA had 50-70% stenosis at the ostium. CTA FFR was performed which was abnormal in the right coronary artery as well as distal LAD. She had an echocardiogram in 2021 which showed normal biventricular function with EF of 60 65% and no significant valvular pathology. Small pericardial effusion was noted. It appears she has not been able to get follow-up at [facility] and was referred to us for potential diagnostic angiography. The patient has been experiencing shortness of breath and gets out of breath very easily. She is saying that after minimal activity she has to rest. She also has been getting some left-sided chest pains. She has asthma and COPD and is on treatment for that. Her blood pressure is elevated. She is only on metoprolol which is a weak antihypertensive medication. Labs and imaging reviewed. 03/08/2024: She is here for follow-up. She underwent cardiac catheterization in 11/05/2023 which showed severe ostial right coronary artery stenosis which was treated with drug-eluting stent using intravascular ultrasound guidance. She also had a mid LAD 70% stenosis. On follow-up today, she has saying she's not feeling well today. She is short of breath due to the humidity. She also did not take her medications today. She is saying her blood pressure at home has been okay although in the office currently blood pressure is elevated. She said RCA PCI did not affect her breathing significantly and she continues to get shortness of breath. We discussed in detail that there is residual LAD stenosis present which needs to be addressed in the future. 08/02/2024: She is back for follow-up. Denying any chest discomfort. She had some shortness of breath with recently which improved with inhalers. She has significant skin dryness and is asking whether atorvastatin is the reason and she has stopped using it. She also has fatty liver and is asking whether atorvastatin is safe. I have reassured her that she should take atorvastatin and I have advised her to take half a tablet for now and eventually go back to full tablet. No bleeding concerns. 11/29/2024: She is here for follow-up. She is complaining of dyspnea with activities. She is saying when she had RCA PCI her breathing did not improve and she has progressive shortness of breath since then. She has gained weight which is mostly not related to fluid buildup. She is following with pulmonology regularly. Blood pressure is elevated. 07/18/2025: She is here for follow-up. She unfortunately had a stroke in June 2025 and was at [facility]. She has recovered fairly well at this stage. She had speech difficulty which has improved. She is saying that she has been feeling quite depressed since this happened because she was taking care of herself quite well but still stroke happened. She is denying any chest discomfort worsening shortness of breath. Taking aspirin and Plavix at this point. She had a 14 day Zio monitor which has not been reported but I looked at the monitor in [facility] and it just shows a short run of potentially atrial tachycardia but no atrial fibrillation or atrial flutter noted on that monitor. [facility] Medical History CVA (cerebral vascular accident) Insomnia CAD (coronary artery disease) MARY (obstructive sleep apnea) Pulmonary nodule Asthma MARY on CPAP Surgical History History of cardiac cath Family History Father Pacemaker Social History Patient Tobacco Use Status: Never used Tobacco Advance Directives Date on File: 10/13/23 Review of Systems Const Denies chills, Denies fatigue, Denies fever(s), Denies frequent falls, Denies weakness, Denies weight gain and Denies weight loss ENT Denies dizziness Card Denies chest pain, Denies leg edema, Denies lightheadedness, Denies palpitations, Denies dyspnea and Denies dyspnea on exertion Resp Denies cough, Denies dyspnea and Denies dyspnea on exertion GI Denies hematochezia Musc Denies abnormal gait, Denies muscle weakness, Denies numbness, Denies radiating pain into limb and Denies tingling Neuro Denies abnormal gait, Denies dizziness, Denies frequent falls, Denies numbness, Denies tingling and Denies weakness Endo Denies fatigue and Denies palpitations Physical Exam Vital Signs: Last Vital Signs BP 130/56 L 07/18/25 12:52 BMI result Body Mass Index 30.1 GENERAL APPEARANCE: in no acute distress, pleasant. NECK: no carotid bruit, no jugular venous distention. SKIN: no suspicious lesions, warm and dry. HEART: no murmurs, regular rate and rhythm. LUNGS: clear to auscultation bilaterally. ABDOMEN: soft, nontender. EXTREMITIES: Trace edema. PERIPHERAL PULSES: equal. NEUROLOGIC: No gross deficits, AAO X 3 Assessment & Plan Assessment & Plan (1) Essential hypertension: Code(s): I10 - Essential (primary) hypertension Category: Medical (2) CAD (coronary artery disease): Comment: with abnromal CT coronary with 70% distal LAD and 70% proximal RCA Code(s): I25.10 - Atherosclerotic heart disease of [place] coronary artery without angina pectoris Category: Medical Qualifiers: Associated angina: with stable angina Coronary Disease-Associated Artery/Lesion type: unspecified vessel or lesion type [place] vs. transplanted heart: unspecified whether [place] or transplanted heart Qualified Code(s): I25.118 - Atherosclerotic heart disease of [place] coronary artery with other forms of angina pectoris (3) CVA (cerebral vascular accident): Code(s): I63.9 - Cerebral infarction, unspecified Category: Medical Plan Pleasant 80 year lady who is here for follow-up. She has known history of coronary disease with RCA and LAD disease in the past. She had RCA stenting and LAD was medically managed. She did not have any significant change in her shortness of breath after PCI to right coronary artery. More recently she was complaining of some more symptoms and we are waiting to see if with management of lung disease her dyspnea will improve but unfortunately she had a stroke in the interim. She has recovered from the stroke. She is denying any significant chest pain or shortness of breath on follow-up. Continue aspirin and Plavix. Her Zio monitor has not shown any obvious atrial fibrillation or flutter episodes. I think she should continue aspirin and Plavix for now. Blood pressure control is okay. Holding off on any invasive cardiovascular workup currently due to recent stroke. If her dyspnea worsens in the future then we can consider PCI to LAD. Thank you for allowing me to participate in the care of your patient. Please feel free to contact me if you have any questions. Coding Level of Care Code Est Pt Level 4 (13913) Diagnoses Essential hypertension I10 Coronary artery disease with stable angina pectoris, unspecified vessel or lesion type, unspecified whether [place] or transplanted heart I25.118 Associated angina: with stable angina Coronary Disease-Associated Artery/Lesion type: unspecified vessel or lesion type [place] vs. transplanted heart: unspecified whether [place] or transplanted heart CVA (cerebral vascular accident) I63.9
[2025-07-18 12:52] VITALS: BP 130/56; BMI 30.1
--- OUTSIDE RECORDS SUMMARY | 2025-07-18 15:22 | XMS_ITS | Encounter Summary ---
Author Organization [facility] Address [address] [place] [address] Care Team Providers Care Pre Parole Counseling Aide Name Role Phone Audrey Petersen MD Primary Care Provider Encounter Details Date Type Department Care Team (Late st Contact Info) Description 06/06/2025 Lab Requisition [facility] - Main Lab [address] [facility] [place] [address] Jenny Joyner PA [address] [place] [phone] Encounter for other general examination Social History Tobacco Use Types Packs/Day Years Used Date Smoking Tobacco: Never Smokeless Tobacco: Never Alcohol Use Standard Drinks/Week Comments Not Currently 0 (1 standard drink = 0.6 oz pur e alcohol) Comments Unknown Sex and Gender Information Value Date Recorded Sex Assigned at Not on file Legal Sex Female 8:58 PM EST Gender Identity Not on file Sexual Orientation Not on file documented as of this encounter Plan of Treatment Not on file documented as of this encounter Procedures Procedure Name Priority Date/Time Associated Diagnosis Comments SST - GOLD Routine 06/06/2025 5:36 AM EDT Encounter for other general examination SEDIMENTATION RATE Routine 06/06/2025 5: 36 AM EDT Encounter for other general examination C-REACTIVE PROTEIN Routine 06/06/2025 5: 36 AM EDT Encounter for other general examination URIC ACID Routine 06/06/2025 5:36 AM EDT Encounter for other general examination documented in this encounter Results * SST tube (06/06/2025 5:36 AM EDT) Extra Tube Hold for add-ons. 06/06/2025 12:01 PM EDT [facility] Comment:Auto resulted. Blood Venous blood specimen / Unknown 06/06/2025 5:36 AM EDT 06/06/2025 10:57 AM EDT Jenny Joyner [place] LAB BLOOD ORDERABLES Final Resu lt [facility] [address] [place] [address], [place] [phone] * (ABNORMAL) Sedimentation rate (06/06/2025 5:36 AM EDT) Pathologist [facility] Sed Rate 55(H) 0 - 30 mm/hr LAB HEMETOLOGY METHOD 06/06/2025 11:32 AM EDT [facility] Blood Venous blood specimen / Unknown Venipuncture / Unknown 06/06/2025 5:36 AM EDT 06/06/2025 9:57 AM EDT us Jenny PHILIPPE LAB BLOOD ORDERABLES Final Resu lt [facility] [address] [place] [address], [place] [phone] * Uric acid (06/06/2025 5:36 AM EDT) Pathologist [facility] Uric Acid 5.5 3.1 - 7.8 mg/dL LAB CHEMISTRY METHOD 06/06/2025 12:12 PM EDT [facility] Blood Venous blood specimen / Unknown Venipuncture / Unknown 06/06/2025 5:36 AM EDT 06/06/2025 9:57 AM EDT [facility] BLOOD ORDERABLES Final Resu lt Performing Organization Address City/[facility]/ZIP Co de Phone Number [facility] [address] [place] [address], [place] [phone] * (ABNORMAL) C-reactive protein (06/06/2025 5:36 AM EDT) C-Reactive Protein 1.92(H) <=0.50 mg/dL LAB CHEMISTRY METHOD 06/06/2025 12:12 PM EDT [facility] Blood Venous blood specimen / Unknown Venipuncture / Unknown 06/06/2025 5:36 AM EDT 06/06/2025 9:57 AM EDT Jenny Joyner [place] LAB BLOOD ORDERABLES Final Resu lt Performing Organization Address [facility]/ZIP Co de Phone Number [facility] [address] [place] [address], [place] [phone] documented in this encounter Visit Diagnoses Diagnosis Encounter for other general examination documented in this encounter Care Teams Pre Parole Counseling Aide Relationship Specialty Start Date End Date Audrey Petersen MD [address] [place] [phone] PCP - General 09/24/22 documented as of this encounter
--- OUTSIDE RECORDS SUMMARY | 2025-07-18 15:22 | XMS_ITS | Encounter Summary ---
Author Organization [facility] Address [address] [place] [address] Care Team Providers Care Legal Process Specialist Name Role Phone Audrey Petersen MD Primary Care Provider Encounter Details Date Type Department Care Team (Late st Contact Info) Description 06/04/2025 Lab Requisition [facility] - Main Lab [address] [facility] [place] [address] Jenny Joyner PA [address] [place] [phone] Encounter for other general examination Social History [...] Procedure Name Priority Date/Time Associated Diagnosis Comments CBC WITH AUTO DIFFERENTIAL Routine 06/04/2025 7:05 AM EDT Encounter for other general examination CBC AND DIFFERENTIAL Routine 06/04/2025 7:05 AM EDT Encounter for other general examination MAGNESIUM Routine 06/04/2025 7:05 AM EDT Encounter for other general examination COMPREHENSIVE METABOLIC PANEL Routine 06/04/2025 7:05 AM EDT Encounter for other general examination documented in this encounter Results * (ABNORMAL) CBC auto differential (06/04/2025 7:05 AM EDT) [facility] WBC 11.5(H) 4.8 - 10.8 K/mcL LAB HEMETOLOGY METHOD 06/04/2025 10:[address] [facility] RBC 4.80 3.80 - 4.80 M/mcL LAB HEMETOLOGY METHOD [facility] Hemoglobin 13.5 11.5 - 16.0 g/dL LAB HEMETOLOGY METHOD 06/04/2025 10:[address] [facility] Hematocrit 41.8 35.0 - 47.0 % LAB HEMETOLOGY METHOD 06/04/2025 10:[address] [facility] MCV 86.5 79.0 - 98.0 FL LAB HEMETOLOGY METHOD 06/04/2025 10:[address] [facility] MCH 28.0 27.0 - 32.0 pcg LAB HEMETOLOGY METHOD 06/04/2025 10:[address] [facility] MCHC 32.3 32.0 - 37.0 g/dL LAB HEMETOLOGY METHOD 06/04/2025 10:[address] [facility] RDW 14.5 11.0 - 15.0 % LAB HEMETOLOGY METHOD 06/04/2025 10:[address] [facility] Platelets 320 130 - 400 K/mcL LAB HEMETOLOGY METHOD 06/04/2025 10:[address] [facility] MPV 12.1(H) 7.0 - 11.0 FL LAB HEMETOLOGY METHOD 06/04/2025 10:[address] [facility] NRBC 0.0 <1.0 % LAB HEMETOLOGY METHOD 06/04/2025 10:[address] [facility] NRBC Absolute 0.00 <0.10 K/mcL LAB HEMETOLOGY METHOD 06/04/2025 10:[address] [facility] Neutrophils Relative 67.0 % LAB HEMETOLOGY METHOD 06/04/2025 10:[address] [facility] Lymphocytes Relative 20.9 % LAB HEMETOLOGY METHOD 06/04/2025 10:[address] [facility] Monocytes Relative 7.3 % LAB HEMETOLOGY METHOD 06/04/2025 10:[address] [facility] Eosinophils Relative 3.5 % LAB HEMETOLOGY METHOD 06/04/2025 10:[address] [facility] Basophils Relative 1.0 % LAB HEMETOLOGY METHOD 06/04/2025 10:[address] [facility] Immature Granulocytes Relative 0.3 % LAB HEMETOLOGY METHOD 06/04/2025 10:[address] [facility] Neutrophils Absolute 7.66(H) 1.50 - 7.00 K/mcL LAB HEMETOLOGY METHOD 06/04/2025 10:[address] [facility] Lymphocytes Absolute 2.40 1.00 - 5.00 K/mcL LAB HEMETOLOGY METHOD 06/04/2025 10:[address] [facility] Monocytes Absolute 0.84 0.20 - 1.00 K/mcL LAB HEMETOLOGY METHOD 06/04/2025 10:[address] [facility] Eosinophils Absolute 0.40 0.00 - 0.50 K/mcL LAB HEMETOLOGY METHOD 06/04/2025 10:[address] [facility] Basophils Absolute 0.12 0.00 - 0.20 K/mcL LAB HEMETOLOGY METHOD 06/04/2025 10:[address] [facility] Immature Granulocytes Absolute 0.04(H) 0.00 - 0.03 K/mcL LAB HEMETOLOGY METHOD 06/04/2025 10:[address] [facility] Blood Venous blood specimen / Unknown Venipuncture / Unknown 06/04/2025 7:05 AM EDT 06/04/2025 9:46 AM EDT Jenny PHILIPPE LAB BLOOD ORDERABLES Final Resu lt [facility] [address] [place] [address], [place] [phone] * Magnesium (06/04/2025 7:05 AM EDT) Pathologist [facility] Magnesium 1.9 1.9 - 2.6 mg/dL LAB CHEMISTRY METHOD 06/04/2025 11:[address] [facility] Blood Venous blood specimen / Unknown Venipuncture / Unknown 06/04/2025 7:05 AM EDT 06/04/2025 9:46 AM EDT Jenny PHILIPPE LAB BLOOD ORDERABLES Final Resu lt Performing Organization Address City/[facility]/ZIP Co de Phone Number [facility] [address] [place] [address], [place] [phone] * (ABNORMAL) Comprehensive metabolic panel (06/04/2025 7:05 AM EDT) [facility] Sodium 138 133 - 145 mmol/L LAB CHEMISTRY METHOD 06/04/2025 11:[address] [facility] Potassium 4.2 3.5 - 5.5 mmol/L LAB CHEMISTRY METHOD 06/04/2025 11:[address] [facility] Chloride 102 96 - 110 mmol/L LAB CHEMISTRY METHOD 06/04/2025 11:[address] [facility] CO2 26 21 - 32 mmol/L LAB CHEMISTRY METHOD 06/04/2025 11:[address] [facility] Anion Gap 10 3 - 11 LAB CHEMISTRY METHOD 06/04/2025 11:[address] [facility] Glucose 89 70 - 100 mg/dL LAB CHEMISTRY METHOD 06/04/2025 11:[address] [facility] BUN 15 5 - 25 mg/dL LAB CHEMISTRY METHOD 06/04/2025 11:[address] [facility] Creatinine 1.03 0.50 - 1.10 mg/dL LAB CHEMISTRY METHOD 06/04/2025 11:[address] [facility] eGFR 55(L) >=60 mL/min/1. 73m2 LAB CHEMISTRY METHOD 06/04/2025 11:[address] [facility] Comment:Calculation based on the Chronic Kidney Disease Epidemiology Collaboration (CKD-EPI) equation refit without adjustment for race. BUN/Creatinine Ratio 14.6 LAB CHEMISTRY METHOD 06/04/2025 11:[address] [facility] Calcium 9.2 8.5 - 10.5 mg/dL LAB CHEMISTRY METHOD 06/04/2025 11:[address] [facility] AST (SGOT) 22 10 - 42 unit/L LAB CHEMISTRY METHOD 06/04/2025 11:[address] [facility] ALT (SGPT) 21 10 - 60 unit/L LAB CHEMISTRY METHOD 06/04/2025 11:[address] [facility] Alkaline Phosphatase 76 42 - 121 unit/L LAB CHEMISTRY METHOD 06/04/2025 11:[address] [facility] Total Protein 7.1 6.0 - 8.0 g/dL LAB CHEMISTRY METHOD 06/04/2025 11:[address] [facility] Albumin 3.6 3.2 - 5.0 g/dL LAB CHEMISTRY METHOD 06/04/2025 11:[address] [facility] Total Bilirubin 0.6 0.0 - 1.4 mg/dL LAB CHEMISTRY METHOD 06/04/2025 11:[address] [facility] Blood Venous blood specimen / Unknown Venipuncture / Unknown 06/04/2025 7:05 AM EDT 06/04/2025 9:46 AM EDT us Jenny PHILIPPE LAB BLOOD ORDERABLES Final Resu lt [facility] [address] [place] [address], documented in this encounter Visit Diagnoses Diagnosis Encounter for other general examination documented in this encounter Care Teams Legal Process Specialist Relationship Specialty Start Date End Date Audrey Petersen MD [address] [place] [phone] PCP - General 09/24/22 documented as of this encounter
--- OUTSIDE RECORDS SUMMARY | 2025-07-18 15:22 | XMS_ITS | Clinical Summary ---
Author Organization [address] Address [address] [place] [phone] Phone Care Team Providers Care Commissioner Of Conciliation Name Role Phone Audrey Petersen MD Primary Care Provider Encounters Date Type Department Care Team Description 06/09/2025 Lab Requisition [facility] [address] [place] [address] Ovidio Kevin PA Other 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 (current) drug therapy 06/08/2025 Lab Requisition [facility] Lab [address] [place] [address] Ovidio Kevin PA Other longterm (current) drug therapy 06/06/2025 Lab Requisition [facility] Lab [address] [place] [address] Jenny Joyner PA Encounter for other general examination 06/04/2025 Lab Requisition [facility] Lab [address] [place] [address] Jenny Joyner PA Encounter for other general examination from Last 3 Months Medical History Medical History Date Comments Hypothyroidism DX:Hypothyroidis m Acne rosacea DX:Acne rosacea Fibromyalgia DX:Fibromyalgia Asthma DX:Asthma Back problem DX:Back problem GERD (gastroesophageal reflux disease) DX:GERD (gastroesophageal reflux disease) Pulmonary nodules DX:Pulmonary n odules Vertigo DX:Vertigo Muscle weakness (generalized) DX :Muscle weakness (generalized) Essential hypertension DX:Essent ial hypertension Hyperlipidemia DX:Hyperlipidemi a Family history of cardiovascular disease DX:Family history of cardiovascular disease Family History Medical History Relation Name Comments Other: unknown cardiac history Brother b Other: pacemaker Father Other: pacemaker Father's side Relation Name Status Comments Brother b Father Father's side Alive Social History Tobacco Use Types Packs/Day Years Used Date Smoking Tobacco: Never Smokeless Tobacco: Never Alcohol Use Standard Drinks/Week Comments Not Currently 0 (1 standard drink = 0.6 oz pur e alcohol) Comments Unknown Sex and Gender Information Value Date Recorded Sex Assigned at Not on file Legal Sex Female 8:58 PM EST Gender Identity Not on file Sexual Orientation Not on file Obstetrics History Last Filed Vital Signs Vital Sign Reading Time Taken Comments Blood Pressure 170/78 02/11/2023 9:22 AM EDT Sitting L Arm Pulse 83 02/11/2023 9:22 AM EDT Temperature - - Respiratory Rate - - Oxygen Saturation - - Inhaled Oxygen Concentration - - Weight 79.2 kg (174 lb 9.6 oz) 02/11/2023 9:22 AM EDT Height 157.5 cm (5' 2 ) 02/11/2023 9:22 AM EDT Body Mass Index 31.93 02/11/2023 9:22 AM EDT Plan of Treatment Health Maintenance Due Date Last Done Comments DTaP,Tdap,and Td Vaccines (1 - Tdap) 01/23/1963 Pneumococcal Vaccine: 50+ Years (1 of 1 - PCV) 01/23/1994 Zoster Vaccines (1 of 2) 01/23/1994 RSV Immunization Adult Patients (1 - 1-dose 75+ series) 01/23/2019 Cholesterol Screening (Lipid Panel) 09/12/2023 Falls Risk Assessment 09/12/2023 Medicare Annual Wellness Visit 09/12/2023 Osteoporosis Screening (Bone Density Screening) 09/12/2023 Social Influencers of Health Screening 09/12/2023 Depression Screening 08/18/2024 COVID-19 Vaccine ( - 2024-2 6 season) 2025 Influenza Vaccine (#1) 2025 Hypertension/CHF/CAD Annual BMP Blood Test 06/09/2026 06/09/2025, 06/04/2025 HIB Vaccines Aged Out No longer eligi ble based on patient's age to complete this topic HPV Vaccines Aged Out No longer eligi ble based on patient's age to complete this topic Hepatitis A Vaccines Aged Out No long er eligible based on patient's age to complete this topic Hepatitis B Vaccines Aged Out No long er eligible based on patient's age to complete this topic IPV Vaccines Aged Out No longer eligi ble based on patient's age to complete this topic MMR Vaccines Aged Out No longer eligi ble based on patient's age to complete this topic Meningococcal ACWY Vaccine Aged Out N o longer eligible based on patient's age to complete this topic Meningococcal B Vaccine Aged Out No l onger eligible based on patient's age to complete this topic RSV Immunization Patients Under 20 months Aged Out No longer eligible b ased on patient's age to complete this topic Varicella Vaccines Aged Out No longer eligible based on patient's age to complete this topic Procedures Procedure Name Priority Date/Time Associated Diagnosis Comments COMPLETE BLOOD COUNT Routine 06/09/2025 6:21 AM EDT Other longterm (current) drug therapy BASIC METABOLIC PANEL Routine 06/09/2025 6:21 AM EDT Other 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 (current) drug therapy CBC WITH AUTO DIFFERENTIAL Routine 06/08/2025 6:00 AM EDT Other longterm (current) drug therapy SST - GOLD Routine 06/08/2025 6:00 AM EDT Other 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 (current) drug therapy CBC AND DIFFERENTIAL Routine 06/08/2025 6:00 AM EDT Other longterm (current) drug therapy SST - GOLD Routine 06/06/2025 5:36 AM EDT Encounter for other general examination SEDIMENTATION RATE Routine 06/06/2025 5: 36 AM EDT Encounter for other general examination URIC ACID Routine 06/06/2025 5:36 AM EDT Encounter for other general examination C-REACTIVE PROTEIN Routine 06/06/2025 5: 36 AM EDT Encounter for other general examination CBC WITH AUTO DIFFERENTIAL Routine 06/04/2025 7:05 AM EDT Encounter for other general examination CBC AND DIFFERENTIAL Routine 06/04/2025 7:05 AM EDT Encounter for other general examination MAGNESIUM Routine 06/04/2025 7:05 AM EDT Encounter for other general examination COMPREHENSIVE METABOLIC PANEL Routine 06/04/2025 7:05 AM EDT Encounter for other general examination from Last 3 Months Results * (ABNORMAL) Complete blood count (06/09/2025 6:21 AM EDT) [facility] WBC 9.2 4.8 - 10.8 K/mcL LAB HEMETOLOGY METHOD [facility] RBC 4.30 3.80 - 4.80 M/mcL LAB HEMETOLOGY METHOD 06/09/2025 1:05 PM [facility] LAB Hemoglobin 11.9 11.5 - 16.0 g/dL LAB HEMETOLOGY METHOD 06/09/2025 1:05 PM [facility] LAB Hematocrit 37.3 35.0 - 47.0 % LAB HEMETOLOGY METHOD 06/09/2025 1:05 PM [facility] LAB MCV 87.1 79.0 - 98.0 FL LAB HEMETOLOGY METHOD 06/09/2025 1:05 PM [facility] LAB MCH 27.8 27.0 - 32.0 pcg LAB HEMETOLOGY METHOD 06/09/2025 1:05 PM [facility] LAB MCHC 31.9(L) 32.0 - 37.0 g/dL LAB HEMETOLOGY METHOD 06/09/2025 1:05 PM [facility] LAB RDW 14.7 11.0 - 15.0 % LAB HEMETOLOGY METHOD 06/09/2025 1:05 PM [facility] LAB Platelets 311 130 - 400 K/mcL LAB HEMETOLOGY METHOD 06/09/2025 1:05 PM EDT [facility] MPV 11.4(H) 7.0 - 11.0 FL LAB HEMETOLOGY METHOD 06/09/2025 1:05 PM EDT [facility] NRBC 0.0 <1.0 % LAB HEMETOLOGY METHOD 06/09/2025 1:05 PM EDT [facility] NRBC Absolute 0.00 <0.10 K/mcL LAB HEMETOLOGY METHOD 06/09/2025 1:05 PM EDT [facility] Blood Venous blood specimen / Unknown 06/09/2025 6:21 AM EDT 06/09/2025 11:42 AM EDT Ovidio PHILIPPE LAB BLOOD ORDERABLES Final R esult [facility] [address] [place] [address], * Basic metabolic panel (06/09/2025 6:21 AM EDT) Sodium 139 133 - 145 mmol/L LAB CHEMISTRY METHOD 06/09/2025 1:55 PM [facility] LAB Potassium 3.9 3.5 - 5.5 mmol/L LAB CHEMISTRY METHOD 06/09/2025 1:55 PM [facility] LAB Chloride 104 96 - 110 mmol/L LAB CHEMISTRY METHOD 06/09/2025 1:55 PM [facility] LAB CO2 26 21 - 32 mmol/L LAB CHEMISTRY METHOD 06/09/2025 1:55 PM [facility] LAB Anion Gap 9 3 - 11 LAB CHEMISTRY METHOD 06/09/2025 1:55 PM [facility] LAB Glucose 94 70 - 100 mg/dL LAB CHEMISTRY METHOD 06/09/2025 1:55 PM [facility] BUN 12 5 - 25 mg/dL LAB CHEMISTRY METHOD 06/09/2025 1:55 PM EDT [facility] Creatinine 0.82 0.50 - 1.10 mg/dL LAB CHEMISTRY METHOD 06/09/2025 1:55 PM EDT [facility] eGFR 72 >=60 mL/min/1. 73m2 LAB CHEMISTRY METHOD 06/09/2025 1:55 PM EDT [facility] Comment:Calculation based on the Chronic Kidney Disease Epidemiology Collaboration (CKD-EPI) equation refit without adjustment for race. BUN/Creatinine Ratio 14.6 LAB CHEMISTRY METHOD 06/09/2025 1:55 PM EDT [facility] Calcium 9.0 8.5 - 10.5 mg/dL LAB CHEMISTRY METHOD 06/09/2025 1:55 PM EDT [facility] Blood Venous blood specimen / Unknown Venipuncture / Unknown 06/09/2025 6:21 AM EDT 06/09/2025 11:42 AM EDT Ovidio PHILIPPE LAB BLOOD ORDERABLES Final R esult [facility] [address] [place] [address], [place] [phone] * SST tube (06/08/2025 6:00 AM EDT) Only the most recent of2 resultswithin the time period is included. Extra Tube Hold for add-ons. 06/08/2025 10:01 AM EDT [facility] Comment:Auto resulted. Blood Venous blood specimen / Unknown Venipuncture / Unknown 06/08/2025 6:00 AM EDT 06/08/2025 8:05 AM EDT Ovidio PHILIPPE LAB BLOOD ORDERABLES Final R esult [facility] [address] [place] [address], * (ABNORMAL) CBC auto differential (06/08/2025 6:00 AM EDT) Only the most recent of2 resultswithin the time period is included. [facility] Signature WBC 9.8 4.8 - 10.8 K/mcL LAB HEMETOLOGY METHOD 06/08/2025 9:26 AM [facility] LAB RBC 4.40 3.80 - 4.80 M/mcL LAB HEMETOLOGY METHOD 06/08/2025 9:26 AM [facility] LAB Hemoglobin 12.2 11.5 - 16.0 g/dL LAB HEMETOLOGY METHOD 06/08/2025 9:26 AM [facility] LAB Hematocrit 39.4 35.0 - 47.0 % LAB HEMETOLOGY METHOD 06/08/2025 9:26 AM [facility] LAB MCV 88.7 79.0 - 98.0 FL LAB HEMETOLOGY METHOD 06/08/2025 9:26 AM [facility] LAB MCH 27.5 27.0 - 32.0 pcg LAB HEMETOLOGY METHOD 06/08/2025 9:26 AM [facility] LAB MCHC 31.0(L) 32.0 - 37.0 g/dL LAB HEMETOLOGY METHOD 06/08/2025 9:26 AM [facility] LAB RDW 14.5 11.0 - 15.0 % LAB HEMETOLOGY METHOD 06/08/2025 9:26 AM [facility] LAB Platelets 324 130 - 400 K/mcL LAB HEMETOLOGY METHOD 06/08/2025 9:26 AM [facility] LAB MPV 12.2(H) 7.0 - 11.0 FL LAB HEMETOLOGY METHOD 06/08/2025 9:26 AM [facility] LAB NRBC 0.0 <1.0 % LAB HEMETOLOGY METHOD 06/08/2025 9:26 AM [facility] LAB NRBC Absolute 0.00 <0.10 K/mcL LAB HEMETOLOGY METHOD 06/08/2025 9:26 AM [facility] Neutrophils Relative 61.0 % LAB HEMETOLOGY METHOD 06/08/2025 9:26 AM [facility] Lymphocytes Relative 27.2 % LAB HEMETOLOGY METHOD 06/08/2025 9:26 AM [facility] Monocytes Relative 7.0 % LAB HEMETOLOGY METHOD 06/08/2025 9:26 AM [facility] Eosinophils Relative 3.3 % LAB HEMETOLOGY METHOD 06/08/2025 9:26 AM [facility] Basophils Relative 1.2 % LAB HEMETOLOGY METHOD 06/08/2025 9:26 AM [facility] Immature Granulocytes Relative 0.3 % LAB HEMETOLOGY METHOD 06/08/2025 9:26 AM [facility] Neutrophils Absolute 5.97 1.50 - 7.00 K/mcL LAB HEMETOLOGY METHOD 06/08/2025 9:26 AM [facility] Lymphocytes Absolute 2.67 1.00 - 5.00 K/mcL LAB HEMETOLOGY METHOD 06/08/2025 9:26 AM [facility] Monocytes Absolute 0.69 0.20 - 1.00 K/mcL LAB HEMETOLOGY METHOD 06/08/2025 9:26 AM [facility] LAB Eosinophils Absolute 0.32 0.00 - 0.50 K/mcL LAB HEMETOLOGY METHOD 06/08/2025 9:26 AM [facility] Basophils Absolute 0.12 0.00 - 0.20 K/mcL LAB HEMETOLOGY METHOD 06/08/2025 9:26 AM EDT [facility] Immature Granulocytes Absolute 0.03 0.00 - 0.03 K/mcL LAB HEMETOLOGY METHOD 06/08/2025 9:26 AM EDT [facility] Blood Venous blood specimen / Unknown Venipuncture / Unknown 06/08/2025 6:00 AM EDT 06/08/2025 8:05 AM EDT Ovidio PHILIPPE LAB BLOOD ORDERABLES Final R esult Performing Organization Address [facility]/ZIP Co de Phone Number [facility] [address] [place] [address], [place] [phone] * (ABNORMAL) Sedimentation rate (06/06/2025 5:36 AM EDT) Sed Rate 55(H) 0 - 30 mm/hr LAB HEMETOLOGY METHOD 06/06/2025 11:32 AM EDT [facility] Blood Venous blood specimen / Unknown Venipuncture / Unknown 06/06/2025 5:36 AM EDT 06/06/2025 9:57 AM EDT us Jenny PHILIPPE LAB BLOOD ORDERABLES Final Resu lt Performing Organization Address [facility]/RUST Co de Phone Number [facility] [address] [place] [address], [place] [phone] * (ABNORMAL) C-reactive protein (06/06/2025 5:36 AM EDT) C-Reactive Protein 1.92(H) <=0.50 mg/dL LAB CHEMISTRY METHOD 06/06/2025 12:12 PM EDT [facility] Blood Venous blood specimen / Unknown Venipuncture / Unknown 06/06/2025 5:36 AM EDT 06/06/2025 9:57 AM EDT us Jenny PHILIPPE LAB BLOOD ORDERABLES Final Resu lt [facility] [address] [place] [address], * Uric acid (06/06/2025 5:36 AM EDT) Uric Acid 5.5 3.1 - 7.8 mg/dL LAB CHEMISTRY METHOD 06/06/2025 12:12 PM EDT [facility] Blood Venous blood specimen / Unknown Venipuncture / Unknown 06/06/2025 5:36 AM EDT 06/06/2025 9:57 AM EDT Jenny PHILIPPE LAB BLOOD ORDERABLES Final Resu lt Performing Organization Address [facility]/ZIP Co de Phone Number [facility] [address] [place] [address], * Magnesium (06/04/2025 7:05 AM EDT) Pathologist [facility] Magnesium 1.9 1.9 - 2.6 mg/dL LAB CHEMISTRY METHOD 06/04/2025 11:38 AM EDT [facility] Blood Venous blood specimen / Unknown Venipuncture / Unknown 06/04/2025 7:05 AM EDT 06/04/2025 9:46 AM EDT [facility] [address] [facility] BLOOD ORDERABLES Final Resu lt [facility] [address] [place] [address], * (ABNORMAL) Comprehensive metabolic panel (06/04/2025 7:05 AM EDT) Sodium 138 133 - 145 mmol/L LAB CHEMISTRY METHOD 06/04/2025 11:40 AM EDT [facility] Potassium 4.2 3.5 - 5.5 mmol/L LAB CHEMISTRY METHOD 06/04/2025 11:40 AM [facility] Chloride 102 96 - 110 mmol/L LAB CHEMISTRY METHOD 06/04/2025 11:40 AM [facility] CO2 26 21 - 32 mmol/L LAB CHEMISTRY METHOD 06/04/2025 11:40 AM [facility] Anion Gap 10 3 - 11 LAB CHEMISTRY METHOD 06/04/2025 11:40 AM [facility] Glucose 89 70 - 100 mg/dL LAB CHEMISTRY METHOD 06/04/2025 11:40 AM [facility] BUN 15 5 - 25 mg/dL LAB CHEMISTRY METHOD 06/04/2025 11:40 AM [facility] Creatinine 1.03 0.50 - 1.10 mg/dL LAB CHEMISTRY METHOD 06/04/2025 11:40 AM [facility] LAB eGFR 55(L) >=60 mL/min/1. 73m2 LAB CHEMISTRY METHOD 06/04/2025 11:40 AM [facility] Comment:Calculation based on the Chronic Kidney Disease Epidemiology Collaboration (CKD-EPI) equation refit without adjustment for race. BUN/Creatinine Ratio 14.6 LAB CHEMISTRY METHOD 06/04/2025 11:40 AM [facility] Calcium 9.2 8.5 - 10.5 mg/dL LAB CHEMISTRY METHOD 06/04/2025 11:40 AM [facility] AST (SGOT) 22 10 - 42 unit/L LAB CHEMISTRY METHOD 06/04/2025 11:40 AM [facility] ALT (SGPT) 21 10 - 60 unit/L LAB CHEMISTRY METHOD 06/04/2025 11:40 AM [facility] Alkaline Phosphatase 76 42 - 121 unit/L LAB CHEMISTRY METHOD 06/04/2025 11:40 AM [facility] Total Protein 7.1 6.0 - 8.0 g/dL LAB CHEMISTRY METHOD 06/04/2025 11:40 AM EDT [facility] Albumin 3.6 3.2 - 5.0 g/dL LAB CHEMISTRY METHOD 06/04/2025 11:40 AM EDT [facility] Total Bilirubin 0.6 0.0 - 1.4 mg/dL LAB CHEMISTRY METHOD 06/04/2025 11:40 AM EDT [facility] Blood Venous blood specimen / Unknown Venipuncture / Unknown 06/04/2025 7:05 AM EDT 06/04/2025 9:46 AM EDT us Jenny PHILIPPE LAB BLOOD ORDERABLES Final Resu lt [facility] [address] [place] [address], from Last 3 Months Insurance MEDICARE Advance Directives Documents on File Type Date Recorded 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
--- OUTSIDE RECORDS SUMMARY | 2025-07-18 15:22 | XMS_ITS | Encounter Summary ---
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 coordinator (current) drug therapy Social History Tobacco Use Types Packs/Day Years [...] COUNT Routine 06/09/2025 6:21 AM EDT Other senior care (current) drug therapy BASIC METABOLIC PANEL Routine 06/09/2025 6:21 AM EDT Other senior care (current) drug therapy documented in this encounter Results * (ABNORMAL) Complete blood count (06/09/2025 6:21 AM EDT) Pathologist [facility] WBC 9.2 4.8 - 10.8 K/mcL LAB HEMETOLOGY METHOD 06/09/2025 1:05 PM [facility] RBC 4.30 3.80 - 4.80 M/mcL LAB HEMETOLOGY METHOD 06/09/2025 1:05 PM [facility] Hemoglobin 11.9 11.5 - 16.0 g/dL LAB HEMETOLOGY METHOD 06/09/2025 1:05 PM [facility] Hematocrit 37.3 35.0 - 47.0 % LAB HEMETOLOGY METHOD 06/09/2025 1:05 PM [facility] MCV 87.1 79.0 - 98.0 FL LAB HEMETOLOGY METHOD 06/09/2025 1:05 PM [facility] MCH 27.8 27.0 - 32.0 pcg LAB HEMETOLOGY METHOD 06/09/2025 1:05 PM [facility] MCHC 31.9(L) 32.0 - 37.0 g/dL LAB HEMETOLOGY METHOD 06/09/2025 1:05 [facility] RDW 14.7 11.0 - 15.0 % LAB HEMETOLOGY METHOD 06/09/2025 1:05 [facility] Platelets 311 130 - 400 K/mcL LAB HEMETOLOGY METHOD 06/09/2025 1:05 PM [facility] MPV 11.4(H) 7.0 - 11.0 FL LAB HEMETOLOGY METHOD 06/09/2025 1:05 PM [facility] NRBC 0.0 <1.0 % LAB HEMETOLOGY METHOD 06/09/2025 1:05 PM [facility] NRBC Absolute 0.00 <0.10 K/mcL LAB HEMETOLOGY METHOD 06/09/2025 1:05 PM [facility] Blood Venous blood specimen / Unknown 06/09/2025 6:21 AM EDT 06/09/2025 11:42 AM EDT us Ovidio PHILIPPE LAB BLOOD ORDERABLES Final R esult [facility] [address] [place] [address], [place] [phone] * Basic metabolic panel (06/09/2025 6:21 AM EDT) Sodium 139 133 - 145 mmol/L LAB CHEMISTRY METHOD 06/09/2025 1:55 PM [facility] Potassium 3.9 3.5 - 5.5 mmol/L LAB CHEMISTRY METHOD 06/09/2025 1:55 PM [facility] Chloride 104 96 - 110 mmol/L LAB CHEMISTRY METHOD 06/09/2025 1:55 PM [facility] CO2 26 21 - 32 mmol/L LAB CHEMISTRY METHOD 06/09/2025 1:55 PM [facility] Anion Gap 9 3 - 11 LAB CHEMISTRY METHOD 06/09/2025 1:55 PM [facility] Glucose 94 70 - 100 mg/dL LAB CHEMISTRY METHOD 06/09/2025 1:55 PM [facility] BUN 12 5 - 25 mg/dL LAB CHEMISTRY METHOD 06/09/2025 1:55 PM T [facility] Creatinine 0.82 0.50 - 1.10 mg/dL LAB CHEMISTRY METHOD 06/09/2025 1:55 PM [facility] eGFR 72 >=60 mL/min/1. 73m2 LAB CHEMISTRY METHOD 06/09/2025 1:55 PM [facility] Comment:Calculation based on the Chronic Kidney Disease Epidemiology Collaboration (CKD-EPI) equation refit without adjustment for race. BUN/Creatinine Ratio 14.6 LAB CHEMISTRY METHOD 06/09/2025 1:55 PM EDT [facility] Calcium 9.0 8.5 - 10.5 mg/dL LAB CHEMISTRY METHOD 06/09/2025 1:55 PM EDT [facility] Blood Venous blood specimen / Unknown Venipuncture / Unknown 06/09/2025 6:21 AM EDT 06/09/2025 11:42 AM EDT us Ovidio PHILIPPE LAB BLOOD ORDERABLES Final R esult [facility] [address] [place] [address], documented in this encounter Visit Diagnoses Diagnosis Other senior care (current) drug therapy documented in this encounter Care Teams Web Application Tester Relationship Specialty Start Date End Date Audrey Petersen MD [address] [place] [phone] PCP - General 09/24/22 documented as of this encounter
--- OUTSIDE RECORDS SUMMARY | 2025-07-18 15:22 | XMS_ITS | Encounter Summary ---
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 Social History Tobacco Use [...] Associated Diagnosis Comments SST - GOLD Routine 06/08/2025 6:00 AM EDT Other terminal operator (current) drug therapy CBC WITH AUTO DIFFERENTIAL Routine 06/08/2025 6:00 AM EDT Other terminal operator (current) drug therapy CBC AND DIFFERENTIAL Routine 06/08/2025 6:00 AM EDT Other terminal operator (current) drug therapy documented in this encounter Results * (ABNORMAL) CBC auto differential (06/08/2025 6:00 AM EDT) [facility] WBC 9.8 4.8 - 10.8 K/mcL LAB HEMETOLOGY METHOD 06/08/2025 9:26 AM [facility] RBC 4.40 3.80 - 4.80 M/mcL LAB HEMETOLOGY METHOD 06/08/2025 9:26 AM [facility] LAB Hemoglobin 12.2 11.5 - 16.0 g/dL LAB HEMETOLOGY METHOD 06/08/2025 9:26 AM [facility] LAB Hematocrit 39.4 35.0 - 47.0 % LAB HEMETOLOGY METHOD 06/08/2025 9:26 AM [facility] LAB MCV 88.7 79.0 - 98.0 FL LAB HEMETOLOGY METHOD 06/08/2025 9:26 AM [facility] LAB MCH 27.5 27.0 - 32.0 pcg LAB HEMETOLOGY METHOD 06/08/2025 9:26 AM [facility] LAB MCHC 31.0(L) 32.0 - 37.0 g/dL LAB HEMETOLOGY METHOD 06/08/2025 9:26 AM [facility] LAB RDW 14.5 11.0 - 15.0 % LAB HEMETOLOGY METHOD 06/08/2025 9:26 AM [facility] LAB Platelets 324 130 - 400 K/mcL LAB HEMETOLOGY METHOD 06/08/2025 9:26 AM [facility] LAB MPV 12.2(H) 7.0 - 11.0 FL LAB HEMETOLOGY METHOD 06/08/2025 9:26 AM [facility] LAB NRBC 0.0 <1.0 % LAB HEMETOLOGY METHOD 06/08/2025 9:26 AM [facility] LAB NRBC Absolute 0.00 <0.10 K/[facility] LAB HEMETOLOGY METHOD 06/08/2025 9:26 AM [facility] LAB Neutrophils Relative 61.0 % LAB HEMETOLOGY METHOD 06/08/2025 9:26 AM [facility] LAB Lymphocytes Relative 27.2 % LAB HEMETOLOGY METHOD 06/08/2025 9:26 AM [facility] LAB Monocytes Relative 7.0 % LAB HEMETOLOGY METHOD 06/08/2025 9:26 AM [facility] LAB Eosinophils Relative 3.3 % LAB HEMETOLOGY METHOD 06/08/2025 9:26 AM [facility] LAB Basophils Relative 1.2 % LAB HEMETOLOGY METHOD 06/08/2025 9:26 AM [facility] LAB Immature Granulocytes Relative 0.3 % LAB HEMETOLOGY METHOD 06/08/2025 9:26 AM [facility] LAB Neutrophils Absolute 5.97 1.50 - 7.00 K/mcL LAB HEMETOLOGY METHOD 06/08/2025 9:26 AM [facility] LAB Lymphocytes Absolute 2.67 1.00 - 5.00 K/mcL LAB HEMETOLOGY METHOD 06/08/2025 9:26 AM [facility] LAB Monocytes Absolute 0.69 0.20 - 1.00 K/mcL LAB HEMETOLOGY METHOD 06/08/2025 9:26 AM [facility] LAB Eosinophils Absolute 0.32 0.00 - 0.50 K/mcL LAB HEMETOLOGY METHOD 06/08/2025 9:26 AM [facility] LAB Basophils Absolute 0.12 0.00 - 0.20 K/mcL LAB HEMETOLOGY METHOD 06/08/2025 9:26 AM [facility] LAB Immature Granulocytes Absolute 0.03 0.00 - 0.03 K/mcL LAB HEMETOLOGY METHOD 06/08/2025 9:26 AM [facility] Blood Venous blood specimen / Unknown Venipuncture / Unknown 06/08/2025 6:00 AM EDT 06/08/2025 8:05 AM EDT Ovidio PHILIPPE LAB BLOOD ORDERABLES Final R esult [facility] [address] [place] [address], [place] [phone] * SST tube (06/08/2025 6:00 AM EDT) Extra Tube Hold for add-ons. 06/08/2025 10:01 AM EDT [facility] Comment:Auto resulted. Blood Venous blood specimen / Unknown Venipuncture / Unknown 06/08/2025 6:00 AM EDT 06/08/2025 8:05 AM EDT Ovidio PHILIPPE LAB BLOOD ORDERABLES Final R esult [facility] [address] [place] [address], [place] [phone] documented in this encounter Visit Diagnoses Diagnosis Other half-way (current) drug therapy documented in this encounter Care Teams Web Press Operator Apprentice Relationship Specialty Start Date End Date Audrey Petersen MD [address] [place] [phone] PCP - General 09/24/22 documented as of this encounter
== END 2025-07-18 13:20 | disposition home or self-care (01) ==
LOC: HO.HCS 11:40
PROVIDERS: Visit Provider Internal Medicine Cardiovascular Disease
DX: I10 Essential (primary) hypertension (principal); I25.118 Atherosclerotic heart disease of native coronary artery with other forms of angina pectoris; I63.9 Cerebral infarction, unspecified
CPT/HCPCS: 99214

== ENCOUNTER → 2025-07-26 13:44 | Outpatient (REF) | payer MEDICARE, SELFPAY ==
--- OUTSIDE RECORDS SUMMARY | 2025-07-26 19:48 | XMS_ITS | Clinical Summary ---
Author Organization [address] Address [address] [place] [phone] Phone Care Team Providers Care Grades 1 Thru 5 Teacher Name Role Phone Audrey Petersen MD Primary Care Provider Encounters Date Type Department Care Team Description 06/09/[address] 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 Lab [address] [place] [address] Ovidio Kevin PA Other half-way (current) drug therapy 06/06/[address] [facility] Lab [address] [place] [address] Jenny Joyner PA Encounter for other general examination 06/04/[address] 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 SST - GOLD Routine 06/08/2025 6:00 AM EDT Other half-way (current) drug therapy CBC AND DIFFERENTIAL Routine 06/08/2025 6:00 AM EDT 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0 pcg LAB HEMETOLOGY METHOD 06/09/2025 1:05 PM [facility] MCHC 31.9(L) 32.0 - 37.0 g/dL LAB HEMETOLOGY METHOD 06/09/2025 1:05 PM [facility] RDW 14.7 11.0 - 15.0 % LAB HEMETOLOGY METHOD 06/09/2025 1:05 PM [facility] Platelets 311 130 - 400 K/mcL LAB HEMETOLOGY METHOD 06/09/2025 1:05 PM EDT [facility] MPV 11.4(H) 7.0 - 11.0 FL LAB HEMETOLOGY METHOD 06/09/2025 1:05 PM EDT [facility] NRBC 0.0 <1.0 % LAB HEMETOLOGY METHOD 06/09/2025 1:05 PM EDT [facility] NRBC Absolute 0.00 <0.10 K/mcL LAB HEMETOLOGY METHOD 06/09/2025 1:05 PM EDT [facility] Blood Venous blood specimen / Unknown 06/09/2025 6:21 AM EDT 06/09/2025 11:42 AM EDT Ovidio PHILIPPE LAB BLOOD ORDERABLES Final R esult [facility] [address] [place] [address], * Basic metabolic panel (06/09/2025 6:21 AM EDT) Sodium 139 133 - 145 mmol/L LAB CHEMISTRY METHOD 06/09/2025 1:55 PM [facility] Potassium 3.9 3.5 - 5.5 mmol/L LAB CHEMISTRY METHOD 06/09/2025 1:55 PM T [facility] Chloride 104 96 - 110 mmol/L LAB CHEMISTRY METHOD 06/09/2025 1:55 PM [facility] CO2 26 21 - 32 mmol/L LAB CHEMISTRY METHOD 06/09/2025 1:55 PM T [facility] Anion Gap 9 3 - 11 LAB CHEMISTRY METHOD [facility] Glucose 94 70 - 100 mg/dL LAB CHEMISTRY METHOD 06/09/2025 1:55 PM EDT [facility] BUN 12 5 - 25 mg/dL LAB CHEMISTRY METHOD 06/09/2025 1:55 PM EDT [facility] Creatinine 0.82 0.50 - 1.10 mg/dL LAB CHEMISTRY METHOD 06/09/2025 1:55 PM EDT [facility] eGFR 72 >=60 mL/min/1. 73m2 LAB CHEMISTRY METHOD 06/09/2025 1:55 PM EDT [facility] Comment:Calculation based on the Chronic Kidney Disease Epidemiology Collaboration (CKD-EPI) equation refit without adjustment for race. BUN/Creatinine Ratio 14.6 LAB CHEMISTRY METHOD 06/09/2025 1:55 PM EDT [facility] Calcium 9.0 8.5 - 10.5 mg/dL LAB CHEMISTRY METHOD 06/09/2025 1:55 PM EDT [facility] Blood Venous blood specimen / Unknown Venipuncture / Unknown 06/09/2025 6:21 AM EDT 06/09/2025 11:42 AM EDT Ovidio PHILIPPE LAB BLOOD ORDERABLES Final R esult [facility] [address] [place] [address], [place] [phone] * SST tube (06/08/2025 6:00 AM EDT) Only the most recent of2 resultswithin the time period is included. Extra Tube Hold for add-ons. 06/08/2025 10:01 AM EDT [facility] Comment:Auto resulted. Blood Venous blood specimen / Unknown Venipuncture / Unknown 06/08/2025 6:00 AM EDT 06/08/2025 8:05 AM EDT Ovidio PHILIPPE LAB BLOOD ORDERABLES Final R esult [facility] [address] [place] [address], * (ABNORMAL) CBC auto differential (06/08/2025 6:00 AM EDT) Only the most recent of2 resultswithin the time period is included. [facility] Signature WBC 9.8 4.8 - 10.8 K/mcL LAB HEMETOLOGY METHOD 06/08/2025 9:26 AM [facility] RBC 4.40 3.80 - 4.80 M/mcL LAB HEMETOLOGY METHOD 06/08/2025 9:26 AM [facility] Hemoglobin 12.2 11.5 - 16.0 g/dL LAB HEMETOLOGY METHOD 06/08/2025 9:26 AM [facility] Hematocrit 39.4 35.0 - 47.0 % LAB HEMETOLOGY METHOD 06/08/2025 9:26 AM [facility] MCV 88.7 79.0 - 98.0 FL LAB HEMETOLOGY METHOD 06/08/2025 9:26 AM [facility] MCH 27.5 27.0 - 32.0 pcg LAB HEMETOLOGY METHOD 06/08/2025 9:26 AM [facility] MCHC 31.0(L) 32.0 - 37.0 g/dL LAB HEMETOLOGY METHOD 06/08/2025 9:26 AM [facility] RDW 14.5 11.0 - 15.0 % LAB HEMETOLOGY METHOD 06/08/2025 9:26 AM [facility] Platelets 324 130 - 400 K/mcL LAB HEMETOLOGY METHOD 06/08/2025 9:26 AM [facility] MPV 12.2(H) 7.0 - 11.0 FL LAB HEMETOLOGY METHOD 06/08/2025 9:26 AM [facility] NRBC 0.0 <1.0 % LAB HEMETOLOGY METHOD 06/08/2025 9:26 AM [facility] NRBC Absolute 0.00 <0.10 K/mcL LAB HEMETOLOGY METHOD 06/08/2025 9:26 AM [facility] Neutrophils Relative 61.0 % LAB HEMETOLOGY METHOD 06/08/2025 9:26 AM [facility] Lymphocytes Relative 27.2 % LAB HEMETOLOGY METHOD 06/08/2025 9:26 AM [facility] Monocytes Relative 7.0 % LAB HEMETOLOGY METHOD 06/08/2025 9:26 AM [facility] Eosinophils Relative 3.3 % LAB HEMETOLOGY METHOD 06/08/2025 9:26 AM [facility] Basophils Relative 1.2 % LAB HEMETOLOGY METHOD 06/08/2025 9:26 AM [facility] Immature Granulocytes Relative 0.3 % LAB HEMETOLOGY METHOD 06/08/2025 9:26 AM [facility] Neutrophils Absolute 5.97 1.50 - 7.00 K/mcL LAB HEMETOLOGY METHOD 06/08/2025 9:26 AM [facility] Lymphocytes Absolute 2.67 1.00 - 5.00 K/mcL LAB HEMETOLOGY METHOD 06/08/2025 9:26 AM [facility] Monocytes Absolute 0.69 0.20 - 1.00 K/mcL LAB HEMETOLOGY METHOD 06/08/2025 9:26 AM [facility] Eosinophils Absolute 0.32 0.00 - 0.50 K/mcL LAB HEMETOLOGY METHOD 06/08/2025 9:26 AM [facility] Basophils Absolute 0.12 0.00 - 0.20 K/mcL LAB HEMETOLOGY METHOD 06/08/2025 9:26 AM [facility] Immature Granulocytes Absolute 0.03 0.00 - 0.03 K/mcL LAB HEMETOLOGY METHOD 06/08/2025 9:26 AM EDT [facility] Blood Venous blood specimen / Unknown Venipuncture / Unknown 06/08/2025 6:00 AM EDT 06/08/2025 8:05 AM EDT Ovidio PHILIPPE LAB BLOOD ORDERABLES Final R esult Performing Organization Address [facility]/ZIP Co de Phone Number [facility] [address] [place] [address], [place] [phone] * (ABNORMAL) Sedimentation rate (06/06/2025 5:36 AM EDT) Sed Rate 55(H) 0 - 30 mm/hr LAB HEMETOLOGY METHOD 06/06/2025 11:32 AM EDT [facility] Blood Venous blood specimen / Unknown Venipuncture / Unknown 06/06/2025 5:36 AM EDT 06/06/2025 9:57 AM EDT Jenny PHILIPPE LAB BLOOD ORDERABLES Final Resu lt Performing Organization Address [facility] Co de Phone Number [facility] [address] [place] [address], [place] [phone] * (ABNORMAL) C-reactive protein (06/06/2025 5:36 AM EDT) C-Reactive Protein 1.92(H) <=0.50 mg/dL LAB CHEMISTRY METHOD 06/06/2025 12:12 PM EDT [facility] Blood Venous blood specimen / Unknown Venipuncture / Unknown 06/06/2025 5:36 AM EDT 06/06/2025 9:57 AM EDT Jenny PHILIPPE LAB BLOOD ORDERABLES Final Resu lt Performing Organization Address City/[facility]/ZIP Co de Phone Number [facility] [address] [place] [address], [place] [phone] * Uric acid (06/06/2025 5:36 AM EDT) Uric Acid 5.5 3.1 - 7.8 mg/dL LAB CHEMISTRY METHOD 06/06/2025 12:12 PM EDT [facility] Blood Venous blood specimen / Unknown Venipuncture / Unknown 06/06/2025 5:36 AM EDT 06/06/2025 9:57 AM EDT Jenny PHILIPPE LAB BLOOD ORDERABLES Final Resu lt Performing Organization Address [facility]/ZIP Co de Phone Number [facility] [address] [place] [address], * Magnesium (06/04/2025 7:05 AM EDT) Pathologist [facility] Magnesium 1.9 1.9 - 2.6 mg/dL LAB CHEMISTRY METHOD 06/04/2025 11:38 AM EDT [facility] Blood Venous blood specimen / Unknown Venipuncture / Unknown 06/04/2025 7:05 AM EDT 06/04/2025 9:46 AM EDT Jenny Joyner [place] LAB BLOOD ORDERABLES Final Resu lt [facility] [address] [place] [address], [place] [phone] * (ABNORMAL) Comprehensive metabolic panel (06/04/2025 7:05 AM EDT) Sodium 138 133 - 145 mmol/L LAB CHEMISTRY METHOD 06/04/2025 11:40 AM EDT [facility] Potassium 4.2 3.5 - 5.5 mmol/L LAB CHEMISTRY METHOD 06/04/2025 11:40 AM [facility] Chloride 102 96 - 110 mmol/L LAB CHEMISTRY METHOD 06/04/2025 11:40 AM [facility] CO2 26 21 - 32 mmol/L LAB CHEMISTRY METHOD 06/04/2025 11:40 AM [facility] Anion Gap 10 3 - 11 LAB CHEMISTRY METHOD 06/04/2025 11:40 AM [facility] Glucose 89 70 - 100 mg/dL LAB CHEMISTRY METHOD 06/04/2025 11:40 AM [facility] BUN 15 5 - 25 mg/dL LAB CHEMISTRY METHOD 06/04/2025 11:40 AM [facility] Creatinine 1.03 0.50 - 1.10 mg/dL LAB CHEMISTRY METHOD 06/04/2025 11:40 AM [facility] eGFR 55(L) >=60 mL/min/1. 73m2 LAB CHEMISTRY METHOD 06/04/2025 11:40 AM [facility] Comment:Calculation based on the Chronic Kidney Disease Epidemiology Collaboration (CKD-EPI) equation refit without adjustment for race. BUN/Creatinine Ratio 14.6 LAB CHEMISTRY METHOD 06/04/2025 11:40 AM [facility] Calcium 9.2 8.5 - 10.5 mg/dL LAB CHEMISTRY METHOD 06/04/2025 11:40 AM [facility] AST (SGOT) 22 10 - 42 unit/L LAB CHEMISTRY METHOD 06/04/2025 11:40 AM [facility] ALT (SGPT) 21 10 - 60 unit/L LAB CHEMISTRY METHOD 06/04/2025 11:40 AM [facility] Alkaline Phosphatase 76 42 - 121 unit/L LAB CHEMISTRY METHOD 06/04/2025 11:40 AM [facility] Total Protein 7.1 6.0 - 8.0 g/dL LAB CHEMISTRY METHOD 06/04/2025 11:40 AM EDT [facility] Albumin 3.6 3.2 - 5.0 g/dL LAB CHEMISTRY METHOD 06/04/2025 11:40 AM EDT [facility] Total Bilirubin 0.6 0.0 - 1.4 mg/dL LAB CHEMISTRY METHOD 06/04/2025 11:40 AM EDT [facility] Blood Venous blood specimen / Unknown Venipuncture / Unknown 06/04/2025 7:05 AM EDT 06/04/2025 9:46 AM EDT us Jenny PHILIPPE LAB BLOOD ORDERABLES Final Resu lt [facility] [address] [place] [address], from Last 3 Months Insurance MEDICARE Advance Directives Documents on File Type Date Recorded Patient [place] Expl anation Health Care Decision (hx) 02/22/2013 AD BUENO DIRECTIVE Health Care Decision (hx) 02/16/2013 AD BUENO DIRECTIVE Care Teams Grades 1 Thru 5 Teacher Relationship Specialty Start Date End Date Audrey Petersen MD [address] [place] [address] [address] [place] [phone] PCP - General 2/7/23
--- OUTSIDE RECORDS SUMMARY | 2025-07-26 19:48 | XMS_ITS | Encounter Summary ---
Author Organization [facility] Address [address] [place] [address] Care Team Providers Care Information Clerk Brokerage Name Role Phone Audrey Petersen MD Primary Care Provider Encounter Details Date Type Department Care Team (Late st Contact Info) Description 06/06/2025 Lab Requisition [facility] - Main Lab [address] [facility] [place] [address] Jenny Joyner PA [address] [place] [phone] Encounter for other general examination Social History [...] Hold for add-ons. 06/06/2025 12:01 PM EDT [facility] Comment:Auto resulted. Blood Venous blood specimen / Unknown 06/06/2025 5:36 AM EDT 06/06/2025 10:57 AM EDT Jenny Joyner [place] LAB BLOOD ORDERABLES Final Resu lt [facility] [address] [place] [address], [place] [phone] * (ABNORMAL) Sedimentation rate (06/06/2025 5:36 AM EDT) Pathologist [facility] Sed Rate 55(H) 0 - 30 mm/hr LAB HEMETOLOGY METHOD 06/06/2025 11:32 AM EDT [facility] Blood Venous blood specimen / Unknown Venipuncture / Unknown 06/06/2025 5:36 AM EDT 06/06/2025 9:57 AM EDT us Jenny PHILIPPE LAB BLOOD ORDERABLES Final Resu lt [facility] [address] [place] [address], [place] [phone] * Uric acid (06/06/2025 5:36 AM EDT) Pathologist [facility] Uric Acid 5.5 3.1 - 7.8 mg/dL LAB CHEMISTRY METHOD 06/06/2025 12:12 PM EDT [facility] Blood Venous blood specimen / Unknown Venipuncture / Unknown 06/06/2025 5:36 AM EDT 06/06/2025 9:57 AM EDT [facility]OD ORDER[facility]LES Final Resu lt Performing Organization Address City/[facility]/ZIP Co de Phone Number [facility] [address] [place] [address], [place] [phone] * (ABNORMAL) C-reactive protein (06/06/2025 5:36 AM EDT) C-Reactive Protein 1.92(H) <=0.50 mg/dL LAB CHEMISTRY METHOD 06/06/2025 12:12 PM EDT [facility] Blood Venous blood specimen / Unknown Venipuncture / Unknown 06/06/2025 5:36 AM EDT 06/06/2025 9:57 AM EDT Jenny Joyner [place] LAB BLOOD ORDERABLES Final Resu lt Performing Organization Address [facility]/ZIP Co de Phone Number [facility] [address] [place] [address], [place] [phone] documented in this encounter Visit Diagnoses Diagnosis Encounter for other general examination documented in this encounter Care Teams Information Clerk Brokerage Relationship Specialty Start Date End Date Audrey Petersen MD [address] [place] [phone] PCP - General 09/24/22 documented as of this encounter
--- OUTSIDE RECORDS SUMMARY | 2025-07-26 19:48 | XMS_ITS | Encounter Summary ---
Author Organization [facility] Address [address] [place] [address] Care Team Providers Care Textile Engineer Name Role Phone Audrey Petersen MD Primary Care Provider Encounter Details Date Type Department Care Team (Late st Contact Info) Description 06/04/2025 Lab Requisition [facility] - Main Lab [address] [facility] [place] [address] Jenny Joyner PA [address] [place] [phone] Encounter for other general examination Social History [...] CBC auto differential (06/04/2025 7:05 AM EDT) [facility] WBC 11.5(H) 4.8 - 10.8 K/mcL LAB HEMETOLOGY METHOD 06/04/2025 10:45 AM [facility] RBC 4.80 3.80 - 4.80 M/mcL LAB [facility] Hemoglobin 13.5 11.5 - 16.0 g/dL LAB HEMETOLOGY METHOD 06/04/2025 10:45 AM [facility] Hematocrit 41.8 35.0 - 47.0 % LAB HEMETOLOGY METHOD 06/04/2025 10:45 AM [facility] MCV 86.5 79.0 - 98.0 FL LAB HEMETOLOGY METHOD 06/04/2025 10:45 AM [facility] MCH 28.0 27.0 - 32.0 pcg LAB HEMETOLOGY METHOD 06/04/2025 10:45 AM [facility] LAB MCHC 32.3 32.0 - 37.0 g/dL LAB HEMETOLOGY METHOD 06/04/2025 10:45 AM [facility] RDW 14.5 11.0 - 15.0 % LAB HEMETOLOGY METHOD 06/04/2025 10:45 AM [facility] Platelets 320 130 - 400 K/mcL LAB HEMETOLOGY METHOD 06/04/2025 10:45 AM [facility] MPV 12.1(H) 7.0 - 11.0 FL LAB HEMETOLOGY METHOD 06/04/2025 10:45 AM [facility] NRBC 0.0 <1.0 % LAB HEMETOLOGY METHOD 06/04/2025 10:45 AM [facility] NRBC Absolute 0.00 <0.10 K/mcL LAB HEMETOLOGY METHOD 06/04/2025 10:[address] [facility] Neutrophils Relative 67.0 % LAB HEMETOLOGY METHOD 06/04/2025 10:45 AM [facility] Lymphocytes Relative 20.9 % LAB HEMETOLOGY METHOD 06/04/2025 10:45 AM [facility] Monocytes Relative 7.3 % LAB HEMETOLOGY METHOD 06/04/2025 10:45 AM [facility] Eosinophils Relative 3.5 % LAB HEMETOLOGY METHOD 06/04/2025 10:45 AM [facility] Basophils Relative 1.0 % LAB HEMETOLOGY METHOD 06/04/2025 10:45 AM [facility] Immature Granulocytes Relative 0.3 % LAB HEMETOLOGY METHOD 06/04/2025 10:45 AM [facility] Neutrophils Absolute 7.66(H) 1.50 - 7.00 K/mcL LAB HEMETOLOGY METHOD 06/04/2025 10:45 AM [facility] Lymphocytes Absolute 2.40 1.00 - 5.00 K/mcL LAB HEMETOLOGY METHOD 06/04/2025 10:45 AM [facility] Monocytes Absolute 0.84 0.20 - 1.00 K/mcL LAB HEMETOLOGY METHOD 06/04/2025 10:45 AM [facility] Eosinophils Absolute 0.40 0.00 - 0.50 K/mcL LAB HEMETOLOGY METHOD 06/04/2025 10:45 AM [facility] Basophils Absolute 0.12 0.00 - 0.20 K/mcL LAB HEMETOLOGY METHOD 06/04/2025 10:45 AM [facility] Immature Granulocytes Absolute 0.04(H) 0.00 - 0.03 K/mcL LAB HEMETOLOGY METHOD 06/04/2025 10:[address] [facility] Blood Venous blood specimen / Unknown Venipuncture / Unknown 06/04/2025 7:05 AM EDT 06/04/2025 9:46 AM EDT Jenny PHILIPPE LAB BLOOD ORDERABLES Final Resu lt [facility] [address] [place] [address], [place] [phone] * Magnesium (06/04/2025 7:05 AM EDT) Pathologist [facility] Magnesium 1.9 1.9 - 2.6 mg/dL LAB CHEMISTRY METHOD 06/04/2025 11:[address] [facility] Blood Venous blood specimen / Unknown Venipuncture / Unknown 06/04/2025 7:05 AM EDT 06/04/2025 9:46 AM EDT Jenny PHILIPPE LAB BLOOD ORDERABLES Final Resu lt Performing Organization Address City/[facility]/ZIP Co de Phone Number [facility] [address] [place] [address], [place] [phone] * (ABNORMAL) Comprehensive metabolic panel (06/04/2025 7:05 AM EDT) [facility] Sodium 138 133 - 145 mmol/L LAB [...] 11 LAB CHEMISTRY METHOD 06/04/2025 11:40 AM [facility] Glucose 89 70 - 100 mg/dL LAB CHEMISTRY METHOD 06/04/2025 11:40 AM [facility] BUN 15 5 - 25 mg/dL LAB CHEMISTRY METHOD 06/04/2025 11:40 AM [facility] Creatinine 1.03 0.50 - 1.10 mg/dL LAB CHEMISTRY METHOD 06/04/2025 11:40 AM [facility] eGFR 55(L) >=60 mL/min/1. 73m2 LAB CHEMISTRY METHOD 06/04/2025 11:40 AM [facility] Comment:Calculation based on the Chronic Kidney Disease Epidemiology Collaboration (CKD-EPI) equation refit without adjustment for race. BUN/Creatinine Ratio 14.6 LAB CHEMISTRY METHOD 06/04/2025 11:40 AM [facility] Calcium 9.2 8.5 - 10.5 mg/dL LAB CHEMISTRY METHOD 06/04/2025 11:40 AM [facility] AST (SGOT) 22 10 - 42 unit/L LAB CHEMISTRY METHOD 06/04/2025 11:40 AM [facility] ALT (SGPT) 21 10 - 60 unit/L LAB CHEMISTRY METHOD 06/04/2025 11:40 AM [facility] Alkaline Phosphatase 76 42 - 121 unit/L LAB CHEMISTRY METHOD 06/04/2025 11:40 AM [facility] Total Protein 7.1 6.0 - 8.0 g/dL LAB CHEMISTRY METHOD 06/04/2025 11:40 AM [facility] Albumin 3.6 3.2 - 5.0 g/dL LAB CHEMISTRY METHOD 06/04/2025 11:40 AM [facility] Total Bilirubin 0.6 0.0 - 1.4 mg/dL LAB CHEMISTRY METHOD 06/04/2025 11:[address] [facility] Blood Venous blood specimen / Unknown Venipuncture / Unknown 06/04/2025 7:05 AM EDT 06/04/2025 9:46 AM EDT us Jenny PHILIPPE LAB BLOOD ORDERABLES Final Resu lt [facility] [address] [place] [address], documented in this encounter Visit Diagnoses Diagnosis Encounter for other general examination documented in this encounter Care Teams Textile Engineer Relationship Specialty Start Date End Date Audrey Petersen MD [address] [place] [phone] PCP - General 09/24/22 documented as of this encounter
--- OUTSIDE RECORDS SUMMARY | 2025-07-26 19:48 | XMS_ITS | Encounter Summary ---
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 Social History Tobacco Use [...] GOLD Routine 06/08/2025 6:00 AM EDT Other technician terminal and repeater (current) drug therapy CBC WITH AUTO DIFFERENTIAL Routine 06/08/2025 6:00 AM EDT Other technician terminal and repeater (current) drug therapy CBC AND DIFFERENTIAL Routine 06/08/2025 6:00 AM EDT Other technician terminal and repeater (current) drug therapy documented in this encounter Results * (ABNORMAL) CBC auto differential (06/08/2025 6:00 AM EDT) [facility] WBC 9.8 4.8 - 10.8 K/mcL LAB HEMETOLOGY METHOD 06/08/2025 9:26 AM [facility] RBC 4.40 3.80 - 4.80 M/mcL LAB HEMETOLOGY METHOD 06/08/2025 9:26 AM [facility] Hemoglobin 12.2 11.5 - 16.0 g/dL LAB HEMETOLOGY METHOD 06/08/2025 9:26 AM [facility] Hematocrit 39.4 35.0 - 47.0 % LAB HEMETOLOGY METHOD 06/08/2025 9:26 AM [facility] MCV 88.7 79.0 - 98.0 FL LAB HEMETOLOGY METHOD 06/08/2025 9:26 AM [facility] LAB MCH 27.5 27.0 - 32.0 pcg LAB HEMETOLOGY METHOD 06/08/2025 9:26 AM [facility] MCHC 31.0(L) 32.0 - 37.0 g/dL LAB HEMETOLOGY METHOD 06/08/2025 9:26 AM [facility] RDW 14.5 11.0 - 15.0 % LAB HEMETOLOGY METHOD 06/08/2025 9:26 AM [facility] Platelets 324 130 - 400 K/mcL LAB HEMETOLOGY METHOD 06/08/2025 9:26 AM [facility] MPV 12.2(H) 7.0 - 11.0 FL LAB HEMETOLOGY METHOD 06/08/2025 9:26 AM [facility] NRBC 0.0 <1.0 % LAB HEMETOLOGY METHOD 06/08/2025 9:26 AM [facility] LAB NRBC Absolute 0.00 <0.10 K/[facility] LAB HEMETOLOGY METHOD 06/08/2025 9:26 AM [facility] Neutrophils Relative 61.0 % LAB HEMETOLOGY METHOD 06/08/2025 9:26 AM [facility] Lymphocytes Relative 27.2 % LAB HEMETOLOGY METHOD 06/08/2025 9:26 AM [facility] Monocytes Relative 7.0 % LAB HEMETOLOGY METHOD 06/08/2025 9:26 AM [facility] Eosinophils Relative 3.3 % LAB HEMETOLOGY METHOD 06/08/2025 9:26 AM [facility] Basophils Relative 1.2 % LAB HEMETOLOGY METHOD 06/08/2025 9:26 AM [facility] Immature Granulocytes Relative 0.3 % LAB HEMETOLOGY METHOD 06/08/2025 9:26 AM [facility] Neutrophils Absolute 5.97 1.50 - 7.00 K/mcL LAB HEMETOLOGY METHOD 06/08/2025 9:26 AM [facility] Lymphocytes Absolute 2.67 1.00 - 5.00 K/mcL LAB HEMETOLOGY METHOD 06/08/2025 9:26 AM [facility] Monocytes Absolute 0.69 0.20 - 1.00 K/mcL LAB HEMETOLOGY METHOD 06/08/2025 9:26 AM [facility] Eosinophils Absolute 0.32 0.00 - 0.50 K/mcL LAB HEMETOLOGY METHOD 06/08/2025 9:26 AM [facility] Basophils Absolute 0.12 0.00 - 0.20 K/mcL LAB HEMETOLOGY METHOD 06/08/2025 9:26 AM [facility] Immature Granulocytes Absolute 0.03 0.00 - 0.03 K/mcL LAB HEMETOLOGY METHOD 06/08/2025 9:26 AM [facility] Blood Venous blood specimen / Unknown Venipuncture / Unknown 06/08/2025 6:00 AM EDT 06/08/2025 8:05 AM EDT Ovidio PHILIPPE LAB BLOOD ORDERABLES Final R esult [facility] [address] [place] [address], [place] [phone] * SST tube (06/08/2025 6:00 AM EDT) Extra Tube Hold for add-ons. 06/08/2025 10:01 AM EDT [facility] Comment:Auto resulted. Blood Venous blood specimen / Unknown Venipuncture / Unknown 06/08/2025 6:00 AM EDT 06/08/2025 8:05 AM EDT Ovidio PHILIPPE LAB BLOOD ORDERABLES Final R esult [facility] [address] [place] [address], [place] [phone] documented in this encounter Visit Diagnoses Diagnosis Other mcc (current) drug therapy documented in this encounter Care Teams 911 Dispatcher Relationship Specialty Start Date End Date Audrey Petersen MD [address] [place] [phone] PCP - General 09/24/22 documented as of this encounter
--- OUTSIDE RECORDS SUMMARY | 2025-07-26 19:48 | XMS_ITS | Encounter Summary ---
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 Social History Tobacco Use [...] COUNT Routine 06/09/2025 6:21 AM EDT Other halfway (current) drug therapy BASIC METABOLIC PANEL Routine 06/09/2025 6:21 AM EDT Other halfway (current) drug therapy documented in this encounter Results * (ABNORMAL) Complete blood count (06/09/2025 6:21 AM EDT) Pathologist [facility] WBC 9.2 4.8 - 10.8 K/mcL LAB HEMETOLOGY METHOD 06/09/2025 1:05 PM [facility] RBC 4.30 3.80 - 4.80 M/mcL LAB HEMETOLOGY METHOD 06/09/2025 1:05 PM [facility] Hemoglobin 11.9 11.5 - 16.0 g/dL LAB HEMETOLOGY METHOD 06/09/2025 1:05 PM [facility] Hematocrit 37.3 35.0 - 47.0 % LAB HEMETOLOGY METHOD 06/09/2025 1:05 PM [facility] MCV 87.1 79.0 - 98.0 FL LAB HEMETOLOGY METHOD 06/09/2025 1:05 PM [facility] MCH 27.8 27.0 - 32.0 pcg LAB HEMETOLOGY METHOD 06/09/2025 1:05 PM [facility] LAB MCHC 31.9(L) 32.0 - 37.0 g/dL LAB HEMETOLOGY METHOD 06/09/2025 1:05 [facility] RDW 14.7 11.0 - 15.0 % LAB HEMETOLOGY METHOD 06/09/2025 1:05 [facility] LAB Platelets 311 130 - 400 K/mcL LAB HEMETOLOGY METHOD 06/09/2025 1:05 PM [facility] MPV 11.4(H) 7.0 - 11.0 FL LAB HEMETOLOGY METHOD 06/09/2025 1:05 PM [facility] NRBC 0.0 <1.0 % LAB HEMETOLOGY METHOD 06/09/2025 1:05 PM [facility] NRBC Absolute 0.00 <0.10 K/mcL LAB HEMETOLOGY METHOD 06/09/2025 1:05 PM [facility] Blood Venous blood specimen / Unknown 06/09/2025 6:21 AM EDT 06/09/2025 11:42 AM EDT us Ovidio PHILIPPE LAB BLOOD ORDERABLES Final R esult [facility] [address] [place] [address], [place] [phone] * Basic metabolic panel (06/09/2025 6:21 AM EDT) Sodium 139 133 - 145 mmol/L LAB CHEMISTRY METHOD 06/09/2025 1:55 PM [facility] Potassium 3.9 3.5 - 5.5 mmol/L LAB CHEMISTRY METHOD 06/09/2025 1:55 PM [facility] Chloride 104 96 - 110 mmol/L LAB CHEMISTRY METHOD 06/09/2025 1:55 PM [facility] CO2 26 21 - 32 mmol/L LAB CHEMISTRY METHOD 06/09/2025 1:55 PM [facility] Anion Gap 9 3 - 11 LAB CHEMISTRY METHOD 06/09/2025 1:55 PM [facility] Glucose 94 70 - 100 mg/dL LAB CHEMISTRY METHOD 06/09/2025 1:55 PM [facility] BUN 12 5 - 25 mg/dL LAB CHEMISTRY METHOD 06/09/2025 1:55 PM T [facility] Creatinine 0.82 0.50 - 1.10 mg/dL LAB CHEMISTRY METHOD 06/09/2025 1:55 PM [facility] eGFR 72 >=60 mL/min/1. 73m2 LAB CHEMISTRY METHOD 06/09/2025 1:55 PM [facility] Comment:Calculation based on the Chronic Kidney Disease Epidemiology Collaboration (CKD-EPI) equation refit without adjustment for race. BUN/Creatinine Ratio 14.6 LAB CHEMISTRY METHOD 06/09/2025 1:55 PM EDT [facility] Calcium 9.0 8.5 - 10.5 mg/dL LAB CHEMISTRY METHOD 06/09/2025 1:55 PM EDT [facility] Blood Venous blood specimen / Unknown Venipuncture / Unknown 06/09/2025 6:21 AM EDT 06/09/2025 11:42 AM EDT us Ovidio PHILIPPE LAB BLOOD ORDERABLES Final R esult [facility] [address] [place] [address], documented in this encounter Visit Diagnoses Diagnosis Other halfway (current) drug therapy documented in this encounter Care Teams Power Project Manager Relationship Specialty Start Date End Date Audrey Petersen MD [address] [place] [phone] PCP - General 09/24/22 documented as of this encounter
--- OUTSIDE RECORDS SUMMARY | 2025-07-26 19:48 | XMS_ITS | Clinical Summary ---
Author Organization [facility] Address [address] [place] [phone] Phone Care Team Providers Care Supervisor Estimator And Drafter Name Role Phone Audrey Petersen MD Primary [...] file Insurance MEDICARE PART A & B [employer] SUPPLEMENT MEDICARE PART A & B [employer] MEDEX SUPPLEMENT MEDICARE PART A & B [facility] MEDEX SUPPLEMENT MEDICARE PART A & B [employer] MEDEX SUPPLEMENT MEDICARE PART A & B [employer] MEDEX SUPPLEMENT MEDICARE PART A & B [employer] MEDEX SUPPLEMENT Care Teams Supervisor Estimator And Drafter Relationship Specialty Start Date End Date Audrey Petersen MD [address] [place] [phone] PCP - General Internal Medicine 08/25/23 Additional Source Comments The information contained in this document represents components of the legal health record. It is not the complete legal health record.[facility]
--- OUTSIDE RECORDS SUMMARY | 2025-08-12 19:00 | XMS_ITS | Clinical Summary ---
Author Organization Unknown Care Team Providers Care Feeder Operator Name Role Phone BRANDEN BIGGS, JHOAN Unavailable Unavailpiter CHÁVEZ RN, KEANU Unavailable Unavailable DARELL SOCIAL WORK INSTRUCTOR, ROSE Unavailable Unavailpiter ARDON PT, ALCIDES Unavailable Unavailable TON BRICK DROPPER, CHI Unavailable Unavailable [place] OT, JACKIE Unavailable Unavailable CONDINO CARSON/LUQUE, VILMA Unavailable Unav renettaable AALIYAH ZARATE, ARTURO Unavailable Unavailable Payers Payer Name Policy Type Policy Number Effective Date Expira tion Date MEDICARE.NGS.PDGM [id number] Problems Condition Name Condition Details Condition Category Status Onset Date Resolution Date Last Treatment Date Treating Clinician Comments APHASIA FOLLOWING CEREBRAL INFARCTION Active 2024-08 00:00: 00 APRAXIA FOLLOWING CEREBRAL INFARCTION Active 2024-08 00:00: 00 ESSENTIAL (PRIMARY) HYPERTENSION Active 2024-08 00:00: 00 ATHSCL HEART DISEASE OF [place] CORONARY ARTERY W/O ANG PCTRS Active 2024-08 00:00: 00 HYPERLIPIDEM IA, UNSPECIFIED Active 2024-08 00:00: 00 HYPOTHYROIDI SM, UNSPECIFIED Active 2024-08 00:00: 00 FIBROMYALGIA Active 2024-08 00:00: 00 WEAKNESS Active 2024-08 00:00: 00 LOGISTICS ASSISTANT (CURRENT) USE OF ASPIRIN Active 2024-08 00:00: 00 LOGISTICS ASSISTANT (CURRENT) USE OF ANTITHROMBOT ICS/ANTIPLAT ELETS Active 2024-08 00:00: 00 Allergies, Adverse Reactions, Alerts Allergy Name Allergy Type Status Severity Reaction(s) Onset Date Inactive Date Treating Clinician Comments PENICILLIN G Propensity to adverse reactions Active 2024-08 13:06: 39 SULFADAZINE Propensity to adverse reactions Active 2024-08 13:06: 51 LISINOPRIL Propensity to adverse reactions Active 2024-08 13:07: 02 HYDROCHLOROT HIAZIDE LISINOPRIL Propensity to adverse reactions Active 2024-08 07:48: 37 Medications Ordered Medication Name Filled Medication Name Start Date Stop Date Current Medication? Ordering Clinician Indication Dosage Frequency Signature (SIG) Comments Components clopidogrel 75 mg tablet 2024-08 00:00: 00 06-28 23:59 :00 No [id number] STROKE PREVENTION 1 tablet DAILY 1 tablet DAILY (route: oral) Med Classific ation: Hematolog ical Agents amlodipine 5 mg tablet 2024-08 00:00: 00 Yes [id number] BLOOD PRESSURE 1 tablet DAILY 1 tablet DAILY (route: oral) Med Classific ation: Cardiovas cular Therapy Agents atorvastati n 20 mg tablet 2024-08 00:00: 00 Yes [id number] HIGH CHOLESTEROL 4 tablet DAILY 4 tablet DAILY (route: oral) Med Classific ation: Cardiovas cular Therapy Agents gabapentin 100 mg capsule 2024-08 00:00: 00 06-24 23:59 :00 No [id number] PAIN 1 capsule 2 TIMES DAILY 1 capsule 2 TIMES DAILY (route: oral) Med Classific ation: Central Nervous System Agents metoprolol tartrate 50 mg tablet 2024-08 00:00: 00 06-24 23:59 :00 No [id number] BLOOD PRESSURE 1 tablet DAILY 1 tablet DAILY (route: oral) Med Classific ation: Cardiovas cular Therapy Agents doxycycline hyclate 100 mg tablet 2024-08 00:00: 00 06-15 00:00 :00 No [id number] Per instruc tions DAILY Per instructio ns DAILY (route: oral) Med Classific ation: Anti-Infe ctive Agents acetaminoph en 325 mg tablet 2024-08 00:00: 00 Yes [id number] PAIN 2 tablet EVERY 4 HOURS 2 tablet EVERY 4 HOURS (route: oral) Med Classific ation: Analgesic , Anti-infl ammatory or Antipyret ic aspirin 81 mg tablet 2024-08 00:00: 00 Yes [id number] ANTIPLATELE T 1 tablet DAILY 1 tablet DAILY (route: oral) Med Classific ation: Hematolog ical Agents duloxetine 30 mg capsule,del ayed release 2024-08 00:00: 00 Yes [id number] MOOD 1 capsule DAILY 1 capsule DAILY (route: oral) Med Classific ation: Central Nervous System Agents levothyroxi ne 137 mcg tablet 2024-08 00:00: 00 Yes [id number] THYROID 1 tablet DAILY 1 tablet DAILY (route: oral) Med Classific ation: Endocrine omega 3 850 mg-dha-epa- fish oil 1,400 mg capsule 2024-08 00:00: 00 Yes [id number] SUPPLEMENT 1 capsule DAILY 1 capsule DAILY (route: oral) Med Classific ation: Cardiovas cular Therapy Agents metoprolol tartrate 25 mg tablet 2024-08 00:00: 00 Yes [id number] HTN 1 tablet 2 TIMES DAILY 1 tablet 2 TIMES DAILY (route: oral) Med Classific ation: Cardiovas cular Therapy Agents Vital Signs Vital Name Observation Time Observation Value Commen ts Temperature 2025-07-21 16:56:00.000 97 [degF] Temperature 2025-07-20 14:44:00.000 98 [degF] Temperature 2025-07-20 12:31:00.000 97.5 [degF] Temperature 2025-07-13 12:00:00.000 96.4 [degF] Temperature 2025-07-12 16:15:00.000 97.3 [degF] Temperature 2025-07-08 17:38:00.000 97 [degF] Temperature 2025-07-07 19:27:00.000 97 [degF] Temperature 2025-07-01 13:46:00.000 97.7 [degF] Temperature 2025-06-28 17:38:00.000 97 [degF] Temperature 2025-06-23 12:50:00.000 97 [degF] Temperature 2025-06-22 14:40:00.000 97.5 [degF] Temperature 2025-06-16 12:59:00.000 97.1 [degF] Temperature 2025-06-16 12:19:00.000 97 [degF] Temperature 2025-06-15 13:03:00.000 97.3 [degF] BMI (%) 2025-06-15 10:30:28.000 30 kg/m2 Height 2025-06-15 10:30:16.000 62 [in_us] Pulse 2025-07-21 16:56:00.000 65 /min Pulse 2025-07-20 14:44:00.000 70 /min Pulse 2025-07-20 12:31:00.000 77 /min Pulse 2025-07-13 12:00:00.000 62 /min Pulse 2025-07-12 16:15:00.000 78 /min Pulse 2025-07-08 17:38:00.000 78 /min Pulse 2025-07-07 19:27:00.000 76 /min Pulse 2025-07-01 13:46:00.000 68 /min Pulse 2025-06-28 17:38:00.000 78 /min Pulse 2025-06-22 14:40:00.000 60 /min Pulse 2025-06-16 12:59:00.000 71 /min Pulse 2025-06-16 12:19:00.000 69 /min Pulse 2025-06-15 13:03:00.000 72 /min O2 Saturation (%) 2025-07-21 16:56:00.000 98 % O2 Saturation (%) 2025-07-20 14:44:00.000 96 % O2 Saturation (%) 2025-07-20 12:31:00.000 96 % O2 Saturation (%) 2025-07-13 12:00:00.000 95 % O2 Saturation (%) 2025-07-12 16:15:00.000 96 % O2 Saturation (%) 2025-07-08 17:38:00.000 96 % O2 Saturation (%) 2025-07-07 19:27:00.000 98 % O2 Saturation (%) 2025-07-01 13:46:00.000 98 % O2 Saturation (%) 2025-06-28 17:38:00.000 96 % O2 Saturation (%) 2025-06-23 12:50:00.000 97 % O2 Saturation (%) 2025-06-22 14:40:00.000 98 % O2 Saturation (%) 2025-06-16 12:59:00.000 97 % O2 Saturation (%) 2025-06-16 12:19:00.000 95 % O2 Saturation (%) 2025-06-15 13:03:00.000 98 % Respirations 2025-07-21 16:56:00.000 17 /min Respirations 2025-07-20 14:44:00.000 16 /min Respirations 2025-07-20 12:31:00.000 18 /min Respirations 2025-07-13 12:00:00.000 18 /min Respirations 2025-07-12 16:15:00.000 16 /min Respirations 2025-07-08 17:38:00.000 16 /min Respirations 2025-07-07 19:27:00.000 16 /min Respirations 2025-07-01 13:46:00.000 16 /min Respirations 2025-06-28 17:38:00.000 17 /min Respirations 2025-06-23 12:50:00.000 17 /min Respirations 2025-06-22 14:40:00.000 16 /min Respirations 2025-06-16 12:59:00.000 18 /min Respirations 2025-06-16 12:19:00.000 17 /min Respirations 2025-06-15 13:03:00.000 17 /min Weight (lbs) 2025-06-15 10:30:28.000 169 [lb_av] Systolic Blood Pressure 2025-07-21 16:56:00.000 139 mm [Hg] Systolic Blood Pressure 2025-07-20 14:44:00.000 128 mm [Hg] Systolic Blood Pressure 2025-07-20 12:31:00.000 132 mm [Hg] Systolic Blood Pressure 2025-07-13 12:00:00.000 138 mm [Hg] Systolic Blood Pressure 2025-07-12 16:15:00.000 150 mm [Hg] Systolic Blood Pressure 2025-07-08 17:38:00.000 145 mm [Hg] Systolic Blood Pressure 2025-07-07 19:27:00.000 138 mm [Hg] Systolic Blood Pressure 2025-07-01 13:46:00.000 120 mm [Hg] Systolic Blood Pressure 2025-06-28 17:38:00.000 130 mm [Hg] Systolic Blood Pressure 2025-06-23 12:50:00.000 140 mm [Hg] Systolic Blood Pressure 2025-06-22 14:40:00.000 118 mm [Hg] Systolic Blood Pressure 2025-06-16 12:59:00.000 134 mm [Hg] Systolic Blood Pressure 2025-06-16 12:19:00.000 141 mm [Hg] Systolic Blood Pressure 2025-06-15 13:03:00.000 138 mm [Hg] Diastolic Blood Pressure 2025-07-21 16:56:00.000 60 mm [Hg] Diastolic Blood Pressure 2025-07-20 14:44:00.000 68 mm [Hg] Diastolic Blood Pressure 2025-07-20 12:31:00.000 68 mm [Hg] Diastolic Blood Pressure 2025-07-13 12:00:00.000 60 mm [Hg] Diastolic Blood Pressure 2025-07-12 16:15:00.000 68 mm [Hg] Diastolic Blood Pressure 2025-07-08 17:38:00.000 80 mm [Hg] Diastolic Blood Pressure 2025-07-07 19:27:00.000 70 mm [Hg] Diastolic Blood Pressure 2025-07-01 13:46:00.000 60 mm [Hg] Diastolic Blood Pressure 2025-06-28 17:38:00.000 80 mm [Hg] Diastolic Blood Pressure 2025-06-23 12:50:00.000 60 mm [Hg] Diastolic Blood Pressure 2025-06-22 14:40:00.000 70 mm [Hg] Diastolic Blood Pressure 2025-06-16 12:59:00.000 72 mm [Hg] Diastolic Blood Pressure 2025-06-16 12:19:00.000 62 mm [Hg] Diastolic Blood Pressure 2025-06-15 13:03:00.000 78 mm [Hg] Plan of Treatment Planned Activity Planned Date Details Comments Future Scheduled Test PHYSICAL T HERAPIST TO EVALUATE FOR SAFETY AND STRENGTHENING [code = PHYSICAL THERAPIST TO EVALUATE FOR SAFETY AND STRENGTHENING] Future Scheduled Test OCCUPATION AL THERAPIST TO EVALUATE FOR SAFETY WITH ADLS AND IADLS [code = OCCUPATIONAL THERAPIST TO EVALUATE FOR SAFETY WITH ADLS AND IADLS] Future Scheduled Test FALL REDUC TION MANAGEMENT; RN TO ASSESS AND OBSERVE, SOCIAL WORK INSTRUCTOR/AUTOMOTIVE SERVICE MANAGER TO OBSERVE FALL RISK FACTORS AND EDUCATE PATIENT/CAREGIVER ON STRATEGIES TO MINIMIZE THE RISK OF FALLING. [code = FALL REDUCTION MANAGEMENT; RN TO ASSESS AND OBSERVE, SOCIAL WORK INSTRUCTOR/AUTOMOTIVE SERVICE MANAGER TO OBSERVE FALL RISK FACTORS AND EDUCATE PATIENT/CAREGIVER ON STRATEGIES TO MINIMIZE THE RISK OF FALLING.] Future Scheduled Test NEUROLOGIC AL SYSTEM MANAGEMENT; RN TO ASSESS AND TEACH, AUTOMOTIVE SERVICE MANAGER/SOCIAL WORK INSTRUCTOR TO OBSERVE AND TEACH RELATED TO ALTERED NEUROLOGICAL STATUS TO MINIMIZE COMPLICATIONS AND REDUCE HOSPITALIZATION. [code = NEUROLOGICAL SYSTEM MANAGEMENT; RN TO ASSESS AND TEACH, AUTOMOTIVE SERVICE MANAGER/SOCIAL WORK INSTRUCTOR TO OBSERVE AND TEACH RELATED TO ALTERED NEUROLOGICAL STATUS TO MINIMIZE COMPLICATIONS AND REDUCE HOSPITALIZATION.] Future Scheduled Test CEREBRAL V ASCULAR ACCIDENT MANAGEMENT; RN/AUTOMOTIVE SERVICE MANAGER/SOCIAL WORK INSTRUCTOR TO PROVIDE SKILLED TEACHING AND MANAGEMENT OF POST CEREBRAL VASCULAR ACCIDENT. [code = CEREBRAL VASCULAR ACCIDENT MANAGEMENT; RN/AUTOMOTIVE SERVICE MANAGER/SOCIAL WORK INSTRUCTOR TO PROVIDE SKILLED TEACHING AND MANAGEMENT OF POST CEREBRAL VASCULAR ACCIDENT.] Future Scheduled Test RN TO OBSE RVE, ASSESS, EVALUATE, AND DEVELOP AN INDIVIDUALIZED PLAN OF CARE. AGENCY MAY ACCEPT ORDERS FROM CONSULTING PHYSICIANS. RN TO OBSERVE AND ASSESS, SOCIAL WORK INSTRUCTOR/AUTOMOTIVE SERVICE MANAGER TO OBSERVE FOR RISK FOR FALLS AND INSTRUCT IN FALL PREVENTION, HOME SAFETY, MEDICATION MANAGEMENT, INFECTION PREVENTION, AND NUTRITION MANAGEMENT. RN/SOCIAL WORK INSTRUCTOR/AUTOMOTIVE SERVICE MANAGER NURSE MAY PERFORM O2 SATURATION LEVEL ON ADMISSION AND PRN FOR RN TO ASSESS/SOCIAL WORK INSTRUCTOR TO OBSERVE PATIENT, WITH NOTIFICATION TO THE PHYSICIAN IF SATURATION IS 90% IN THE ABSENCE OF MORE SPECIFIC PARAMETERS FROM THE PHYSICIAN. AGENCY MAY PERFORM A RESUMPTION OF CARE VISIT FOLLOWING ANY HOSPITAL ADMISSION. RN/SOCIAL WORK INSTRUCTOR/AUTOMOTIVE SERVICE MANAGER TO MONITOR CO-MORBID CONDITIONS LISTED ON THE PLAN OF CARE AND ANY NEW CONDITIONS THAT PRESENT THEMSELVES DURING THIS EPISODE TO IDENTIFY CHANGES AND INTERVENE TO MINIMIZE COMPLICATIONS. [code = RN TO OBSERVE, ASSESS, EVALUATE, AND DEVELOP AN INDIVIDUALIZED PLAN OF CARE. AGENCY MAY ACCEPT ORDERS FROM CONSULTING PHYSICIANS. RN TO OBSERVE AND ASSESS, SOCIAL WORK INSTRUCTOR/AUTOMOTIVE SERVICE MANAGER TO OBSERVE FOR RISK FOR FALLS AND INSTRUCT IN FALL PREVENTION, HOME SAFETY, MEDICATION MANAGEMENT, INFECTION PREVENTION, AND NUTRITION MANAGEMENT. RN/SOCIAL WORK INSTRUCTOR/AUTOMOTIVE SERVICE MANAGER NURSE MAY PERFORM O2 SATURATION LEVEL ON ADMISSION AND PRN FOR RN TO ASSESS/SOCIAL WORK INSTRUCTOR TO OBSERVE PATIENT, WITH NOTIFICATION TO THE PHYSICIAN IF SATURATION IS 90% IN THE ABSENCE OF MORE SPECIFIC PARAMETERS FROM THE PHYSICIAN. AGENCY MAY PERFORM A RESUMPTION OF CARE VISIT FOLLOWING ANY HOSPITAL ADMISSION. RN/SOCIAL WORK INSTRUCTOR/AUTOMOTIVE SERVICE MANAGER TO MONITOR CO-MORBID CONDITIONS LISTED ON THE PLAN OF CARE AND ANY NEW CONDITIONS THAT PRESENT THEMSELVES DURING THIS EPISODE TO IDENTIFY CHANGES AND INTERVENE TO MINIMIZE COMPLICATIONS.] Future Scheduled Test PAIN MANAG EMENT; RN TO ASSESS AND TEACH, AUTOMOTIVE SERVICE MANAGER/SOCIAL WORK INSTRUCTOR TO OBSERVE AND TEACH AND PROVIDE EDUCATION ON PAIN MANAGEMENT TECHNIQUES. [code = PAIN MANAGEMENT; RN TO ASSESS AND TEACH, AUTOMOTIVE SERVICE MANAGER/SOCIAL WORK INSTRUCTOR TO OBSERVE AND TEACH AND PROVIDE EDUCATION ON PAIN MANAGEMENT TECHNIQUES.] Future Scheduled Test RISK FOR H OSPITALIZATION; RN TO ASSESS/TEACH, AUTOMOTIVE SERVICE MANAGER/SOCIAL WORK INSTRUCTOR TO OBSERVE/TEACH PATIENT/CAREGIVER ON RISK FOR HOSPITALIZATION/EMERGENCY ROOM VISITS, TEACH SIGNS AND SYMPTOMS THAT PUT PATIENT AT RISK, WHEN TO NOTIFY NURSE/PHYSICIAN OF COMPLICATIONS/DECLINE, AND WHEN TO CALL 911. [code = RISK FOR HOSPITALIZATION; RN TO ASSESS/TEACH, AUTOMOTIVE SERVICE MANAGER/SOCIAL WORK INSTRUCTOR TO OBSERVE/TEACH PATIENT/CAREGIVER ON RISK FOR HOSPITALIZATION/EMERGENCY ROOM VISITS, TEACH SIGNS AND SYMPTOMS THAT PUT PATIENT AT RISK, WHEN TO NOTIFY NURSE/PHYSICIAN OF COMPLICATIONS/DECLINE, AND WHEN TO CALL 911.] Future Scheduled Test CARDIOVASC ULAR SYSTEM; RN TO ASSESS/TEACH, SOCIAL WORK INSTRUCTOR/AUTOMOTIVE SERVICE MANAGER TO OBSERVE/TEACH RELATED TO ALTERED CARDIOVASCULAR STATUS TO MINIMIZE COMPLICATIONS AND REDUCE HOSPITALIZATION. [code = CARDIOVASCULAR SYSTEM; RN TO ASSESS/TEACH, SOCIAL WORK INSTRUCTOR/AUTOMOTIVE SERVICE MANAGER TO OBSERVE/TEACH RELATED TO ALTERED CARDIOVASCULAR STATUS TO MINIMIZE COMPLICATIONS AND REDUCE HOSPITALIZATION.] Future Scheduled Test HYPERTENSI ON MANAGEMENT; RN TO ASSESS AND TEACH, SOCIAL WORK INSTRUCTOR/AUTOMOTIVE SERVICE MANAGER TO OBSERVE AND TEACH WARNING SIGNS AND SYMPTOMS TO AVOID HOSPITALIZATION. [code = HYPERTENSION MANAGEMENT; RN TO ASSESS AND TEACH, SOCIAL WORK INSTRUCTOR/AUTOMOTIVE SERVICE MANAGER TO OBSERVE AND TEACH WARNING SIGNS AND SYMPTOMS TO AVOID HOSPITALIZATION.] Future Scheduled Test MEDICATION MANAGEMENT; RN/SOCIAL WORK INSTRUCTOR/AUTOMOTIVE SERVICE MANAGER TO REVIEW MEDICATIONS FOR INTERACTIONS, EFFECTIVENESS OF DRUG THERAPY, AND SIGNS/SYMPTOMS OF ADVERSE REACTIONS. MAY INSTRUCT AND REINFORCE MEDICATION TEACHING RELATED TO THE USE OF MEDICATIONS, DOSAGE, FREQUENCY, PURPOSE, SIDE EFFECTS, AND TO REPORT COMPLICATIONS. [code = MEDICATION MANAGEMENT; RN/SOCIAL WORK INSTRUCTOR/AUTOMOTIVE SERVICE MANAGER TO REVIEW MEDICATIONS FOR INTERACTIONS, EFFECTIVENESS OF DRUG THERAPY, AND SIGNS/SYMPTOMS OF ADVERSE REACTIONS. MAY INSTRUCT AND REINFORCE MEDICATION TEACHING RELATED TO THE USE OF MEDICATIONS, DOSAGE, FREQUENCY, PURPOSE, SIDE EFFECTS, AND TO REPORT COMPLICATIONS.] Future Scheduled Test PHYSICAL T HERAPY EVALUATION PERFORMED. NO ADDITIONAL VISITS REQUIRED. PROVIDED SKILLED INTERVENTION INCLUDING HEP [code = PHYSICAL THERAPY EVALUATION PERFORMED. NO ADDITIONAL VISITS REQUIRED. PROVIDED SKILLED INTERVENTION INCLUDING HEP] Future Scheduled Test AGENCY MAY PERFORM A RESUMPTION OF CARE VISIT FOLLOWING ANY HOSPITAL ADMISSION. OT TO EVALUATE, OBSERVE / ASSESS, AND MONITOR, CARSON TO OBSERVE AND MONITOR, PROVIDE SKILLED THERAPEUTIC INTERVENTION, ACTIVITY, EDUCATION, AND TRAINING TO ADDRESS; BATHING/SHOWERING (OT/TAPPER SHANK) ACTIVITIES OF DAILY LIVING (OT/TAPPER SHANK) LIGHT HOUSEKEEPING (OT/CARSON) LAUNDRY MANAGEMENT (OT/CARSON) BATH/SHOWER TRANSFER (OT/TAPPER SHANK) ITEM RETRIEVAL AND TRANSPORTATION (OT/CARSON) FEAR OF FALLING (OT/CARSON) POSTURAL CONTROL/BALANCE (OT/CARSON) ENERGY CONSERVATION/ACTIVITY DEMAND (OT/TAPPER SHANK) OT/CARSON TO MONITOR AND EDUCATE ON OXYGEN SATURATION DURING ADLS/IADLS, NOTIFY PHYSICIAN AND/OR THE RN CLINICAL SHIFT SUPERINTENDENT FOR PHYSICIAN NOTIFICATION AND IF O2 SATS BELOW 90% AFTER 10 MIN OF REST. OT / CARSON TO IDENTIFY FALL RISK FACTORS; EDUCATE THE PATIENT/CAREGIVER ON WAYS TO REDUCE FALL RISK FACTORS AND ESTABLISH HOME EXERCISE PROGRAM TO MINIMIZE FALL RISK. MAY TEACH THE PATIENT FLOOR RECOVERY WHEN CLINICALLY APPROPRIATE. OT / TAPPER SHANK TO EDUCATE ON CVA SELF-MANAGEMENT OT/TAPPER SHANK MAY EDUCATE ON PAIN MANAGEMENT CLINICALLY INDICATED, INCLUDING NON-PHARMACOLOGICAL PAIN REDUCTION TECHNIQUES OT/CARSON TO EDUCATE ON HYPERTENSION SELF-MANAGEMENT [code = AGENCY MAY PERFORM A RESUMPTION OF CARE VISIT FOLLOWING ANY HOSPITAL ADMISSION. OT TO EVALUATE, OBSERVE / ASSESS, AND MONITOR, CARSON TO OBSERVE AND MONITOR, PROVIDE SKILLED THERAPEUTIC INTERVENTION, ACTIVITY, EDUCATION, AND TRAINING TO ADDRESS; BATHING/SHOWERING (OT/TAPPER SHANK) ACTIVITIES OF DAILY LIVING (OT/CARSON) LIGHT HOUSEKEEPING (OT/TAPPER SHANK) LAUNDRY MANAGEMENT (OT/CARSON) BATH/SHOWER TRANSFER (OT/TAPPER SHANK) ITEM RETRIEVAL AND TRANSPORTATION (OT/TAPPER SHANK) FEAR OF FALLING (OT/TAPPER SHANK) POSTURAL CONTROL/BALANCE (OT/TAPPER SHANK) ENERGY CONSERVATION/ACTIVITY DEMAND (OT/CARSON) OT/CARSON TO MONITOR AND EDUCATE ON OXYGEN SATURATION DURING ADLS/IADLS, NOTIFY PHYSICIAN AND/OR THE RN CLINICAL SHIFT SUPERINTENDENT FOR PHYSICIAN NOTIFICATION AND IF O2 SATS BELOW 90% AFTER 10 MIN OF REST. OT / TAPPER SHANK TO IDENTIFY FALL RISK FACTORS; EDUCATE THE PATIENT/CAREGIVER ON WAYS TO REDUCE FALL RISK FACTORS AND ESTABLISH HOME EXERCISE PROGRAM TO MINIMIZE FALL RISK. MAY TEACH THE PATIENT FLOOR RECOVERY WHEN CLINICALLY APPROPRIATE. OT / CARSON TO EDUCATE ON CVA SELF-MANAGEMENT OT/CARSON MAY EDUCATE ON PAIN MANAGEMENT CLINICALLY INDICATED, INCLUDING NON-PHARMACOLOGICAL PAIN REDUCTION TECHNIQUES OT/TAPPER SHANK TO EDUCATE ON HYPERTENSION SELF-MANAGEMENT] Goal Patient Goal - GET OFF MEDS Goal Provider Goal - Goal Provider Goal - Goal Provider Goal - PATIENT/CAREGIVER WILL VERBALIZE/DEMONSTRATE UNDERSTANDING OF FALL RISK FACTORS AND IMPLEMENT STRATEGIES TO MINIMIZE FALL RISK. PATIENT/CAREGIVER WILL VERBALIZE/DEMONSTRATE AN ABILITY TO ADHERE TO FALL REDUCTION SELF-MANAGEMENT AND LIFE-STYLE CHANGES BY END OF EPISODE Goal Provider Goal - PATIENT / CAREGIVER WILL VERBALIZE/DEMONSTRATE UNDERSTANDING OF MEASURES TO MANAGE ALTERED NEUROLOGICAL STATUS BY END OF EPISODE Goal Provider Goal - PATIENT / CAREGIVER WILL VERBALIZE/DEMONSTRATE CARE AND SELF-MANAGEMENT OF CVA TO MINIMIZE COMPLICATIONS AND AVOID HOSPITALIZATION BY END OF EPISODE. Goal Provider Goal - A PLAN OF CARE WILL BE ESTABLISHED THAT MEETS THE PATIENT S NEEDS. PATIENT WILL DEMONSTRATE OXYGEN SATURATION WITHIN NORMAL LIMITS OR PATIENT S OPTIMAL LEVEL ESTABLISHED BY THE PHYSICIAN THROUGHOUT CARE. CHANGES TO CO-MORBID CONDITIONS AND ANY NEW CONDITIONS WILL BE IDENTIFIED AND REPORTED TO THE PHYSICIAN. Goal Provider Goal - PATIENT / CAREGIVER WILL VERBALIZE / DEMONSTRATE UNDERSTANDING OF PAIN CONTROL MEASURES BY END OF EPISODE Goal Provider Goal - PATIENT/CAREGIVER WILL VERBALIZE UNDERSTANDING OF SIGNS AND SYMPTOMS THAT PUT THE PATIENT AT RISK FOR HOSPITALIZATION /EMERGENCY ROOM VISITS, WHEN TO NOTIFY NURSE/PHYSICIAN OF COMPLICATIONS/DECLINE AND WHEN TO CALL 911. Goal Provider Goal - PATIENT / CAREGIVER WILL VERBALIZE/DEMONSTRATE UNDERSTANDING OF MEASURES TO MANAGE ALTERED CARDIOVASCULAR STATUS BY END OF EPISODE Goal Provider Goal - PATIENT / CAREGIVER WILL VERBALIZE/DEMONSTRATE AN ABILITY TO ADHERE TO SELF-MANAGEMENT OF HTN TO MINIMIZE COMPLICATIONS AND AVOID HOSPITALIZATION BY END OF EPISODE. Goal Provider Goal - PATIENT/CAREGIVER TO VERBALIZE, AND CONSISTENTLY DEMONSTRATE EFFECTIVE, SAFE MANAGEMENT OF MEDICATION INCLUDING KNOWLEDGE OF EFFECTIVENESS, POTENTIAL SIDE EFFECTS AND DRUG REACTIONS AND WHEN TO CONTACT THE APPROPRIATE CARE PROVIDER. PATIENT/CAREGIVER WILL BE ABLE TO VERBALIZE UNDERSTANDING OF MEDICATION REGIMEN AND ACCURATELY TAKE MEDICATIONS PRESCRIBED WITHOUT ADVERSE EFFECTS BY END OF EPISODE. Goal Provider Goal - PATIENT / CAREGIVER WITHIN 1 VISIT WILL BE ABLE TO VERBALIZE / DEMONSTRATE UNDERSTANDING OF HEP Goal Provider Goal - OT LTG: PATIENT WILL DEMONSTRATE IMPROVED ABILITY TO PERFORM BATHING/SHOWERING AND REDUCE CAREGIVER BURDEN FROM MODERATE ASSISTANCE TO MODIFIED INDEPENDENCE UTILIZING ADAPTIVE TECHNIQUE AND ENERGY CONSERVATION AND WORK SIMPLIFICATION SKILLS WITHIN 4 WEEK. OT LTG: PATIENT WILL DEMONSTRATE IMPROVEMENT IN MODIFIED CRUZ INDEX SCORE FROM 74 TO 95 INDICATING DECREASED DEPENDENCY ON CAREGIVER ASSISTANCE WITH ACTIVITIES OF DAILY LIVING WITHIN 4 WEEKS ... OT LTG: PATIENT WILL DEMONSTRATE THE ABILITY TO COMPLETE LIGHT HOUSEKEEPING FOR IMPROVED QUALITY OF LIFE FROM MOD ASSIST TO MODIFIED INDEPENDENCE UTILIZING ADAPTIVE TECHNIQUES AND ENERGY CONSERVATION AND WORK SIMPLIFICATION SKILLS WITH DECREASED RISK OF FALLS AND INJURIES WITHIN 5 WEEKS . LTG: PATIENT WILL DEMONSTRATE THE ABILITY TO COMPLETE LAUNDRY FROM UNABLE TO INDEPENDENT UTILIZING ADAPTIVE TECHNIQUES ENERGY CONSERVATION AND WORK SIMPLIFICATION SKILLS WITHIN 5 WEEKS . OT LTG: PATIENT WILL DEMONSTRATE IMPROVED ABILITY AND SAFETY TO PERFORM BATH/SHOWER TRANSFER FROM MINIMAL ASSIST TO MODIFIED INDEPENDENCE WITHIN 4 WEEKS . OT LTG: PATIENT WILL BE ABLE TO SAFELY TRANSPORT ITEMS AROUND HOME FROM MODERATE/ MIN ASSISTANCE TO MODIFIED INDEPENDENCE WITHIN 5 WEEKS OT LTG: PATIENT WILL DEMONSTRATE DECREASED FEAR OF FALLING DURING ADL/IADL TASKS EVIDENCED BY A DECREASE IN FES-I SCORE FROM 43 TO 33 WITHIN 5 WEEKS. OT LTG: PATIENT WILL DEMONSTRATE IMPROVED POSTURAL CONTROL AND DECREASED FALL RISK EVIDENCED BY AN IMPROVEMENT IN FUNCTIONAL REACH SCORE FROM 8 INCHES TO 12 INCHES IN ORDER TO ASSIST WITH ALL ADL SKILLS AND IADL SKILLS WITHIN 5 WEEKS OT LTG: PATIENT WILL MAINTAIN OXYGEN SATURATION WITHIN PHYSICIAN ORDERED PARAMETERS THROUGHOUT THE EPISODE OF CARE. OT LTG: PATIENT/CAREGIVER WILL BE ABLE TO IMPLEMENT RECOMMENDATIONS SPECIFIC TO FALL REDUCTION FOR IMPROVED ADL/IADL COMPLETION AND HOME SAFETY BY END OF EPISODE. OT GOAL: PATIENT/CAREGIVER WILL BE VERBALIZE UNDERSTANDING OF A CVA, SIGNS/SYMPTOMS TO REPORT, WELL SELF-MANAGEMENT AND LIFE-STYLE CHANGES BY END OF EPISODE. OT LTG: PATIENT WILL DEMONSTRATE UNDERSTANDING OF PAIN MANAGEMENT TECHNIQUES EVIDENCED BY REDUCED PAIN OT GOAL: PATIENT/CAREGIVER WILL BE ABLE TO IDENTIFY SIGNS OF EXACERBATION OF HYPERTENSION AND WILL VERBALIZE/DEMONSTRATE AN ABILITY TO ADHERE TO HYPERTENSION SELF-MANAGEMENT AND LIFE-STYLE CHANGES BY END OF EPISODE Encounters Start Date/Time End Date/Time Encounter Type Admission Type Attending [facility] Care Department Encounter ID Discharge Date Discharge Status Discharge Condition Discharge Reason Percent Goals Met 2025-06-15 00:00:00 2025-08-13 00:00:00 Outpatient NEW ADMISSION RK [facility] [id number] 34.78
== END ==
LOC: HO.CARD 13:44
PROVIDERS: PCP Internal Medicine; Visit Provider Internal Medicine Cardiovascular Disease
DX: R00.2 Palpitations (principal)
CPT/HCPCS: 93270

== ENCOUNTER → 2025-07-26 13:51 | Outpatient (BNV) | payer MEDICARE, SELFPAY | PROVIDERS: PCP Internal Medicine; Visit Provider Internal Medicine | DX: R06.02 Shortness of breath (principal) | CPT/HCPCS: 93272 ==